=== PATIENT | female | born 1965 | race Caucasian/White ===

== ENCOUNTER 2018-06-25 10:55 | Inpatient (IN) | payer OTHER ==
--- NOTE | 2018-06-25 11:27 | PDOC ---
History of Present Illness - General History Source: Patient Exam Limitations: No Limitations - History of Present Illness Initial Comments: 06/25/18 12:39 The patient is a 53 year old female, with a significant PMH of Left breast cancer and HTN who presents to the emergency department with a headache for the past two weeks. Patient states the headache is intermittent, localized in the occipatal and parietal region which feels like a knife prompting her to go see Dr. Apodaca one week ago, who prescribed her new meds. Patient was prescribed zgebxrvjnb-rikfwvwljvyvt-tppkyfvx and furosemide 40MG. Patient sustained an injury one day after taking the new medications. Patient reports dizziness and headache after taking her medications. Patient was already on nifedipine, losartan, metoprolol. The patient denies chest pain and shortness of breath. Denies fever, chills, nausea, vomit, diarrhea and constipation. Denies dysuria, frequency, urgency and hematuria. Allergies: NKA Past surgical history: None reported. Social history: No reported alcohol, drug or cigarette use. PCP: Dr. Apodaca <Ning Whalen - Last Filed: 06/25/18 13:29> - General History Source: Patient Exam Limitations: No Limitations <Gail Allred - Last Filed: 06/26/18 10:33> - General Chief Complaint: Weakness Stated Complaint: weakness Time Seen by Provider: 06/25/18 11:14 Past History <Ning Whalen - Last Filed: 06/25/18 13:29> - Past Medical History Anemia: No Asthma: No Cancer: Yes (Left Breast DX 06/09) Cardiac Disorders: No CVA: No COPD: No CHF: No Dementia: No Diabetes: No GI Disorders: No Disorders: No HTN: Yes Hypercholesterolemia: No Liver Disease: No Seizures: No Thyroid Disease: No - Surgical History Abdominal Surgery: No Appendectomy: No Cardiac Surgery: No Cholecystectomy: No Lung Surgery: No Neurologic Surgery: No Orthopedic Surgery: No - Suicide/Smoking/Psychosocial Hx Smoking History: Never smoked Have you smoked in the past 12 months: No Information on smoking cessation initiated: No Hx Alcohol Use: No Drug/Substance Use Hx: No Substance Use Type: None Hx Substance Use Treatment: No <Gail Allred - Last Filed: 06/26/18 10:33> - Past Medical History Allergies/Adverse Reactions: Allergies Allergy/AdvReac Type Severity Reaction Status Date / Time No Known Drug Allergies Allergy Verified 01/26/16 06:49 Home Medications: Ambulatory Orders Losartan Potassium 100 mg PO HS 08/09/15 Nifedipine [Nifedipine ER] 90 mg PO DAILY 08/09/15 Butalb/Acetaminophen/Caffeine [Cyvzed-Hgpnkkuz-Ipzx 50-325-40] 1 each PO TID PRN 06/25/18 Furosemide [Lasix -] 40 mg PO DAILY 06/25/18 Metoprolol Succinate 100 mg PO DAILY 06/25/18 Naphazoline HCl/Pheniramine [Visine-A Eye Drops] 15 ml OP ASDIR 06/25/18 Review of Systems - Review of Systems Able to Perform ROS?: Yes Comments:: 06/25/18 12:57 ADULT ROS GENERAL/CONSTITUTIONAL: No fever or chills. No weakness. HEAD, EYES, EARS, NOSE AND THROAT: No change in vision. No ear pain or discharge. No sore throat. CARDIOVASCULAR: No chest pain or shortness of breath. RESPIRATORY: No cough, wheezing, or hemoptysis. GASTROINTESTINAL: No nausea, vomiting, diarrhea or constipation. GENITOURINARY: No dysuria, frequency, or change in urination. MUSCULOSKELETAL: No joint or muscle swelling or pain. No neck or back pain. SKIN: No rash NEUROLOGIC: (+) Dizzy. (+) Headache. No vertigo, loss of consciousness, or change in strength/sensation. ENDOCRINE: No increased thirst. No abnormal weight change. HEMATOLOGIC/LYMPHATIC: No anemia, easy bleeding, or history of blood clots. ALLERGIC/IMMUNOLOGIC: No hives or skin allergy. <Ning Whalen - Last Filed: 06/25/18 13:29> *Physical Exam - Vital Signs Last Vital Signs Temp Pulse Resp BP Pulse Ox 99.6 F 87 16 134/72 97 06/25/18 11:11 06/25/18 11:11 06/25/18 11:11 06/25/18 11:11 06/25/18 11:11 - Physical Exam Comments: 06/25/18 12:57 GENERAL: The patient is in no acute distress. HEAD: Normal with no signs of trauma. EYES: PERRLA, EOMI, sclera anicteric, conjunctiva clear. ENT: Ears normal, nares patent, oropharynx clear without exudates. Moist mucous membranes. NECK: Normal range of motion, supple without lymphadenopathy, JVD, or masses. LUNGS: Breath sounds equal, clear to auscultation bilaterally. No wheezes, and no crackles. HEART:Regular rate and rhythm, normal S1 and S2 without murmur, rub or gallop. ABDOMEN: Soft, nontender, normoactive bowel sounds. No guarding, no rebound. No masses palpable. EXTREMITIES: Normal range of motion, no edema. No clubbing or cyanosis. No tenderness. (+) Bruising to the left upper extremity. NEUROLOGICAL: Cranial nerves II through XII grossly intact. Normal speech. No focal neurological deficits. MUSCULOSKELETAL: Back non-tender to palpation, no CVA tenderness SKIN: Warm, Dry, normal turgor, no rashes or lesions noted. <Ning Whalen - Last Filed: 06/25/18 13:29> - Vital Signs Last Vital Signs Temp Pulse Resp BP Pulse Ox 99.6 F 87 16 134/72 97 06/25/18 11:11 06/25/18 11:11 06/25/18 11:11 06/25/18 11:11 06/25/18 11:11 <Gail Allred - Last Filed: 06/26/18 10:33> ED Treatment Course - LABORATORY CBC & Chemistry Diagram: 06/25/18 11:20 06/25/18 11:20 - ADDITIONAL ORDERS Additional order review: 06/25/18 11:20 RBC 4.35 MCV 91.8 MCHC 33.4 RDW 14.5 MPV 7.1 L Neutrophils % 70.2 Lymphocytes % 19.2 Monocytes % 7.8 Eosinophils % 2.3 Basophils % 0.5 - Medications Given in the ED: ED Medications Discontinued Medications Generic Name Dose Route Start Last Admin Trade Name Freq PRN Reason Stop Dose Admin Acetaminophen 1,000 mg 06/25/18 11:59 06/25/18 12:27 Ofirmev Injection - IVPB 06/25/18 12:00 1,000 mg ONCE ONE Administration Diphenhydramine HCl 25 mg 06/25/18 11:59 06/25/18 12:27 Benadryl Injection - IVPB 06/25/18 12:00 25 mg ONCE ONE Administration Metoclopramide HCl 10 mg 06/25/18 11:59 06/25/18 12:27 Reglan Injection - IVPUSH 06/25/18 12:00 10 mg ONCE ONE Administration <Ning Whalen - Last Filed: 06/25/18 13:29> - LABORATORY CBC & Chemistry Diagram: 06/26/18 05:30 06/26/18 05:30 <Gail Allred - Last Filed: 06/26/18 10:33> Medical Decision Making - Critical Care Time Total Critical Care Time (minutes): 60 Critical Care Statement: The care of this patient involved high complexity decision making to prevent further life threatening deterioration of the patient 's condition and/or to evaluate & treat vital organ system(s) failure or risk of failure. - Medical Decision Making 06/25/18 13:22 Ms Day is a 53-year-old female with a history of left-sided breast CA presented to emergency department due to weakness, headache. Patient's history of present illness began a possibly 2 weeks ago when she noted an intermittent headache, located parietal and occipital. She was seen by her primary care physician a week ago for her headache, noted to be hypertensive and was given an additional medication for her blood pressure (Lasix). She was also given Duricef for her headache. Patient states since taking those medication she has felt worse. In addition to the headache she is lightheaded particularly when standing. As a result of these medications, she fell while at work landing onto her left arm. She denies head trauma. She's had no fevers or chills. Nausea, no vomiting. No diarrhea. Decreased by mouth intake On examination: Patient is awake, alert answers all questions appropriately Heart is regular rate and rhythm Lungs are clear to auscultation bilaterally No abdominal tenderness. Patient has bruising notable on the left upper extremity. She has no focal weakness or numbness Will do: Labs, orthostatic vital signs, EKG Will do CT head Will give medications for headache Will reassess Will contact patient's PMD EKG: NSR, rate of 70 bpm, axis nml, intervals - pr:148ms, QRS: 140ms (prolonged) , QTc:468ms, no st elevations or depressions Laboratory Tests 06/25/18 06/25/18 11:20 11:20 WBC 8.7 Hgb 13.4 Hct 40.0 Plt Count 367 BUN 15 Creatinine 0.6 Creatine Kinase 73 Troponin I < 0.02 TSH 1.24 06/25/18 15:03 CT demonstrates brain mass with vasogenic edema and mass effect Call placed to Dr. Manriquez Will admit here Requests MRI with contrast Call placed to Dr Apodaca He accepts this patient for admission MRI ordered Decadron ordered Keppra Ordered Case reviewed with ICU resident Results reveiwed with patient, , daughter and son Clinical Impression: brain mass, initial presentation 06/26/18 10:32 <Gail Allred - Last Filed: 06/26/18 10:33> *DC/Admit/Observation/Transfer - Attestations Scribe Attestion: 06/25/18 12:57 Documentation prepared by Ning Whalen, acting as medical records secretary for Gail Allred MD. <Ning Whalen - Last Filed: 06/25/18 13:29> - Discharge Dispostion Decision to Admit order: Yes <aGil Allred - Last Filed: 06/26/18 10:33> Diagnosis at time of Disposition: Brain mass - Discharge Dispostion Condition at time of disposition: Fair
[2018-06-25] MEDS ORDERED: METOCLOPRAMIDE HCL INJECTION 10 MG/2 ML VIAL IVPUSH ONE (11:59)
[2018-06-25] MEDS ORDERED: ACETAMINOPHEN 1000 MG/100 ML VIAL (NON FORMULARY) IVPB ONE (11:59)
[2018-06-25] MEDS ORDERED: METOCLOPRAMIDE HCL INJECTION 10 MG/2 ML VIAL ONE (12:13)
[2018-06-25] MEDS ORDERED: ACETAMINOPHEN INJECTION 100 ML IVPB ONE (12:13)
[2018-06-25 12:30] LABS: BASO % 0.5 % (0-2.0); EOS % 2.3 % (0-4.5); HEMOGLOBIN 13.4 GM/dL (10.7-15.3); LYMPH % 19.2 % (8-40); MCH 30.7 pg (25.7-33.7); MCHC 33.4 g/dl (32.0-36.0); MEAN CELL VOLUME 91.8 fl (80-96); MEAN PLT VOLUME 7.1 fl (7.5-11.1); MONO % 7.8 % (3.8-10.2); NEUT % 70.2 % (42.8-82.8); PLATELET COUNT 367 K/MM3 (134-434); RBC 4.35 M/mm3 (3.60-5.2); RDW 14.5 % (11.6-15.6); WHITE BLOOD COUNT 8.7 K/mm3 (4.0-10.0)
[2018-06-25 12:43] LABS: INR 1.04 (0.83-1.09); PROTHROMBIN TIME (PATIENT) 12.3 SEC (9.7-13.0)
[2018-06-25 13:06] LABS: ALBUMIN 3.5 g/dl (3.4-5.0); ALK PHOS 92 U/L (45-117); ANION GAP 8 MMOL/L (8-16); BILIRUBIN,TOTAL 0.4 mg/dL (0.2-1); BLOOD UREA NITROGEN 15 mg/dL (7-18); CALCIUM 8.8 mg/dL (8.5-10.1); CHLORIDE 101 mmol/L (98-107); CO2 29 mmol/L (21-32); CREATININE 0.6 mg/dL (0.55-1.3); GLUCOSE,RANDOM 112 mg/dL (74-106); POTASSIUM 3.2 mmol/L (3.5-5.1); SGOT/AST 37 U/L (15-37); SGPT/ALT 55 U/L (13-61); SODIUM 138 mmol/L (136-145); TOT PROT 7.6 g/dl (6.4-8.2)
[2018-06-25] MEDS ORDERED: PANTOPRAZOLE SODIUM 40 MG VIAL IVPUSH ONE (15:16)
[2018-06-25] MEDS ORDERED: DEXAMETHASONE SOD PHOSPHATE 20 MG/5 ML VIAL IVPB ONE (15:16)
[2018-06-25] MEDS ORDERED: levETIRAcetam 500 MG/5 ML INJECTION VIAL IVPB ONE ×2 (15:16→15:31)
[2018-06-25] MEDS ORDERED: DEXAMETHASONE SOD PHOSPHATE 4 MG/1 ML VIAL ONE ×2 (15:31→22:31)
[2018-06-25] MEDS ORDERED: PANTOPRAZOLE SODIUM 40 MG/100 ML BAG IVPB ONE (15:31)
--- NOTE | 2018-06-25 15:37 | EKG ---
Test Reason : Blood Pressure : / mmHG Vent. Rate : 070 BPM Atrial Rate : 070 BPM P-R Int : 148 ms QRS Dur : 140 ms QT Int : 434 ms P-R-T Axes : 061 -02 009 degrees QTc Int : 468 ms SINUS RHYTHM WITH PREMATURE SUPRAVENTRICULAR COMPLEXES NON-SPECIFIC INTRA-VENTRICULAR CONDUCTION BLOCK T WAVE ABNORMALITY, CONSIDER ANTEROLATERAL ISCHEMIA ABNORMAL ECG NO PREVIOUS ECGS AVAILABLE Confirmed by SHERLEY SIU, DAWIT ([id number]) on 06/25/2018 3:37:17 PM Referred By: Confirmed By:DAWIT LEPE MD
--- NOTE | 2018-06-25 17:56 | CONSULT ---
Consultation: CONSULT REQUEST: We have been asked to medically evaluate this patient for ( brain mass with a mass effect-ICU admission). PCP: Dr. Apodaca Oncologist: Dr. Sutherland ([facility]) HISTORY OF PRESENT ILLNESS: Patient is a 53 year old female was brought in to the ED with the chief complaint of severe headache x 1 week. As per the patient, she was apparently well until 10 days ago, then she started having severe intermittent headache, 10/10 in intensity, non radiating, located mainly in the occipital area, associated with nausea but no vomiting. Also reports to have blurring of vision, tingling and numbness of the extremities, weakness while walking and weakness on the upper extremities making her difficult to hold even " a glass of water". Patient went to see her PCP a week ago, was given Fiorocet for headaches and Lasix 40mg PO for her BP as per the patient. 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 Denies chest pain, sob, cough, palpitation. Has a h/o constipation. Last bowel movement was yesterday. Bladder habit normal. Decreased PO intake since 10 days. Sleep disturbed. On arrival, her vitals were stable. Patient seen and examined at bed side PAST MEDICAL HISTORY: Hypertension on meds; Left breast Cancer s/p resection, chemo and radiation completed in 2016 in [facility]. 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 Was working till yesterday. TRAVEL: No h/o recent travel REVIEW OF SYSTEMS: CONSTITUTIONAL: Absent: fever, chills, diaphoresis, generalized weakness, malaise, loss of appetite, weight change HEENT: Absent: rhinorrhea, nasal congestion, throat pain, throat swelling, difficulty swallowing, mouth swelling, ear pain, eye pain, visual changes CARDIOVASCULAR: Absent: chest pain, syncope, palpitations, irregular heart rate, lightheadedness , peripheral edema RESPIRATORY: Absent: cough, shortness of breath, dyspnea with exertion, orthopnea, wheezing, stridor, hemoptysis GASTROINTESTINAL: Absent: abdominal pain, abdominal distension, nausea, vomiting, diarrhea, constipation, melena, hematochezia GENITOURINARY: Absent: dysuria, frequency, urgency, hesitancy, hematuria, flank pain, genital pain MUSCULOSKELETAL: Absent: myalgia, arthralgia, joint swelling, back pain, neck pain SKIN: Absent: rash, itching, pallor HEMATOLOGIC/IMMUNOLOGIC: Absent: easy bleeding, easy bruising, lymphadenopathy, frequent infections ENDOCRINE: Absent: unexplained weight gain, unexplained weight loss, heat intolerance, cold intolerance NEUROLOGIC: Present: headache, dizziness, weakness Absent: focal weakness or paresthesias, unsteady gait, seizure, mental status changes, bladder or bowel incontinence PSYCHIATRIC: Absent: anxiety, depression, suicidal or homicidal ideation, hallucinations. PHYSICAL EXAMINATION Vital Signs - 24 hr 06/25/18 06/25/18 06/25/18 11:11 15:08 15:42 Temperature 99.6 F 98.6 F Pulse Rate 87 Pulse Rate [ 67 Left Apical] Pulse Rate [ 65 Left side Sitting] Pulse Rate [ 67 Left side Standing] Pulse Rate [ 70 Left side Supine] Respiratory 16 16 Rate Blood Pressure 134/72 Blood Pressure 123/75 [Left Arm] Blood Pressure 119/69 [Left side Sitting] Blood Pressure 123/54 L [Left side Standing] Blood Pressure 129/66 [Left side Supine] O2 Sat by Pulse 97 98 Oximetry (%) 06/25/18 06/25/18 16:45 17:33 Temperature 97.8 F 98.1 F Pulse Rate Pulse Rate [ 72 72 Left Apical] Pulse Rate [ Left side Sitting] Pulse Rate [ Left side Standing] Pulse Rate [ Left side Supine] Respiratory 16 16 Rate Blood Pressure Blood Pressure 132/76 132/76 [Left Arm] Blood Pressure [Left side Sitting] Blood Pressure [Left side Standing] Blood Pressure [Left side Supine] O2 Sat by Pulse 97 98 Oximetry (%) GENERAL: Middle aged female, lying in bed, Awake, alert, and fully oriented, has mild headache. HEAD: Normal with no signs of trauma. EYES: EOM intact, no pallor or icterus. EARS, NOSE, THROAT: Ears normal. Moist mucous membranes. NECK: Supple. LUNGS: B/L Breath sounds equal, clear to auscultation bilaterally. No wheezes, and no crackles. No accessory muscle use. HEART: Regular rate and rhythm, normal S1 and S2 with soft systolic murmur. ABDOMEN: Soft, nontender, no organomegaly. MUSCULOSKELETAL: Normal range of motion at all joints. No bony deformities or tenderness. No CVA tenderness. UPPER EXTREMITIES: 2+ pulses, warm, well-perfused. No cyanosis. No clubbing. Cap refill <2 seconds. No peripheral edema. LOWER EXTREMITIES: 2+ pulses, warm, well-perfused. No calf tenderness. No peripheral edema. NEUROLOGICAL: No facial droop. Power 5/5 in all extremities. Sensory intact. Cranial nerves II-XII intact. Normal speech. Gait not observed. PSYCHIATRIC: Cooperative. Good eye contact. Appropriate mood and affect. SKIN: Warm, dry, normal turgor, no rashes or lesions noted. Laboratory Results - last 24 hr 06/25/18 06/25/18 06/25/18 11:20 11:20 11:20 WBC 8.7 RBC 4.35 Hgb 13.4 Hct 40.0 MCV 91.8 MCH 30.7 MCHC 33.4 RDW 14.5 Plt Count 367 MPV 7.1 L Absolute Neuts (auto) 6.1 Neutrophils % 70.2 Lymphocytes % 19.2 Monocytes % 7.8 Eosinophils % 2.3 Basophils % 0.5 Nucleated RBC % 0 PT with INR 12.30 INR 1.04 Sodium 138 Potassium 3.2 L Chloride 101 Carbon Dioxide 29 Anion Gap 8 BUN 15 Creatinine 0.6 Creat Clearance w eGFR > 60 Random Glucose 112 H Calcium 8.8 Magnesium 2.0 Total Bilirubin 0.4 AST 37 ALT 55 Alkaline Phosphatase 92 Creatine Kinase 73 Troponin I < 0.02 Total Protein 7.6 Albumin 3[address] head done on 06/25/2018 shows: Large slightly hyperdense mass lesion in th eright posterior frontal lobe, medially measuring 4.4 cm max dimension with significant surrounding vasogenic edema involving the right temporal, frontal and parietal lobe and with significant mass effect shifting the midline structures towards the the left approx 12mm resulting in moderate dilatation of the right temporal horn. ASSESSMENT/PLAN: Patient is a 53 year old female with significant past medical history of Hypertension and left breast cancer s/p resection, chemo and radiation was brought in to the ED with the chief complaint of severe headache x 1 week was found to have mass in the brain with a shift Neurology Headache likely secondary to brain mass with a shift effect Currently patient's vitals are stable at this time, no focal neurological deficits. CT head as mentioned above. Spoke with Dr. Isaac who says we need stat MRI brain results and the treatment will depend upon the results. IV Decadron 4 mg Q6H MIGDALIA IV Protonix 40mg Daily IV Keppra 500 mg IV BID for seizure prophylaxis NPO except PO meds NO IV FLUIDS OR IV MANNITOL. Before giving any additional medication, please call Dr. Isaac. Cardiology Hypertension-controlled Continue her home meds: Losartan 100mg PO HS; Metoprolol succinate 100mg, Nifedipine 90mg. Lasix 40mg currently on hold. FEN NO IV FLUIDS Electrolytes to be repeated in AM NPO except for PO meds Prophylaxis For DVT: SCD's For GI: On IV protonix Code Status: Full code Dispo: Now in the ED. Awaiting bed in ICU. Illness, Investigation and Plan of care explained to the patient and her . They verbalized understanding. Case discussed with Dr. Isaac. Dispo: We will continue to follow the patient. Thank you for this consultative opportunity.
[2018-06-25] MEDS ORDERED: DEXAMETHASONE SOD PHOSPHATE 20 MG/5 ML VIAL IVPB SCH (19:00)
[2018-06-25] MEDS: PANTOPRAZOLE SODIUM 40 MG VIAL IVPUSH SCH (19:09)
[2018-06-25] MEDS ORDERED: LOSARTAN POTASSIUM 100 MG TABLET PO SCH (22:00)
[2018-06-25] MEDS ORDERED: LOSARTAN POTASSIUM 50 MG TABLET (FP) PO SCH (22:33)
[2018-06-25] MEDS: DEXAMETHASONE SOD PHOSPHATE 20 MG/5 ML VIAL IVPUSH SCH (22:36)
[2018-06-25] MEDS ORDERED: METOPROLOL TARTRATE 50 MG TABLET (FP) PO SCH (22:45)
--- NOTE | 2018-06-25 23:41 | PN ---
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 This could represent lymphoma versus primary or metastatic lesions. The mass is causing mass effect on the occipital and temporal horns of the right lateral ventricle with edema extending into the right parietal, temporal and occipital lobes. It is also causing 0.7 cm of leftward midline shift There are no other intracranial masses The ventricles and basilar cisterns are otherwise, unremarkable There is no evidence of intra or extra axial hemorrhage There is some mild incomplete mucosal thickening within the left maxillary sinus which could represent some chronic sinusitis. The remainder of the paranasal sinuses and mastoid air cells are clear IMPRESSION: 1.) Large mass within the inferior thalamic region as described above. This could represent lymphoma, or primary and less likely metastatic disease 2.) Leftward midline shift. Mass effect and edema as described above. Discussed case and results with Neurosurgeon, Dr. Isaac, who believes it might be a possible atrial meningioma. He will speak to the family tomorrow after further reviewing the images with possible surgery on Saturday (06/27/18). For now will make patient NPO after midnight with no IV fluids May take sips of water with medications Spoke to Family at bedside, daughter Essie Day, Son Vinnie Day, and Vinnie and explained the findings. Also explained to them that Dr. Isaac will speak to them tomorrow in full detail and prognosis. Also discussed Code Status and appointing health care proxy Family discussion initiated and patient appointed her daughter, Essie Day , as the health care proxy. Patient is full code Paper work in chart
[2018-06-25] MEDS ORDERED: PT OWN MED DRAWER 7, Y5N ONE (23:54)
[2018-06-26] MEDS: LOSARTAN POTASSIUM 50 MG TABLET (FP) PO SCH ×2 (00:09→21:12)
[2018-06-26] MEDS: DEXAMETHASONE SOD PHOSPHATE 20 MG/5 ML VIAL IVPUSH SCH (02:05)
[2018-06-26 05:51] LABS: HEMATOCRIT 41.7 % (32.4-45.2); HEMOGLOBIN 13.7 GM/dL (10.7-15.3); MCH 30.3 pg (25.7-33.7); MCHC 32.8 g/dl (32.0-36.0); MEAN CELL VOLUME 92.6 fl (80-96); MEAN PLT VOLUME 7.4 fl (7.5-11.1); PLATELET COUNT 364 K/MM3 (134-434); RBC 4.51 M/mm3 (3.60-5.2); RDW 14.8 % (11.6-15.6); WHITE BLOOD COUNT 10.1 K/mm3 (4.0-10.0)
[2018-06-26 06:05] LABS: INR 1.08 (0.83-1.09); PROTHROMBIN TIME (PATIENT) 12.7 SEC (9.7-13.0)
[2018-06-26 06:24] LABS: ALBUMIN 3.5 g/dl (3.4-5.0); ALK PHOS 79 U/L (45-117); ANION GAP 9 MMOL/L (8-16); BILIRUBIN,TOTAL 0.5 mg/dL (0.2-1); BLOOD UREA NITROGEN 15 mg/dL (7-18); CHLORIDE 102 mmol/L (98-107); CO2 27 mmol/L (21-32); CREATININE 0.7 mg/dL (0.55-1.3); GLUCOSE,RANDOM 157 mg/dL (74-106); MAGNESIUM 2.1 mg/dL (1.8-2.4); PHOSPHOROUS 3.5 mg/dL (2.5-4.9); POTASSIUM 3.7 mmol/L (3.5-5.1); SGOT/AST 33 U/L (15-37); SGPT/ALT 53 U/L (13-61); SODIUM 138 mmol/L (136-145); TOT PROT 7.6 g/dl (6.4-8.2)
[2018-06-26] MEDS: PANTOPRAZOLE SODIUM 40 MG VIAL IVPUSH SCH (11:10)
[2018-06-26] MEDS: DEXAMETHASONE SOD PHOSPHATE 4 MG/1 ML VIAL IVPUSH SCH ×3 (11:10→21:13)
[2018-06-26] MEDS: NIFEdipine E.R. 90 MG TABLET (FP) PO SCH (11:11)
[2018-06-26] MEDS ORDERED: levETIRAcetam 500 MG/5 ML INJECTION VIAL IVPB ONE ×2 (11:55→16:57)
--- NOTE | 2018-06-26 12:10 | PN ---
Teaching Attending Note Name of Resident: Courtney Collins ATTENDING PHYSICIAN STATEMENT I saw and evaluated the patient. I reviewed the resident's note and discussed the case with the resident. I agree with the resident's findings and plan as documented. SUBJECTIVE: Pt seen and examined in the ICU. Denies headache, nausea or vomiting. OBJECTIVE: Vital Signs Period Temp Pulse Resp BP Sys/Gilman Pulse Ox Last 24 Hr 97.8 F-98.6 F 65-80 16-18 118-159/54-94 95-98 Intake & Output 06/23/18 06/24/18 06/25/18 06/26/18 23:59 23:59 23:59 23:59 Intake Total 300 200 Balance 300 200 Weight 87.4 kg Gen: NAD at rest Heart: RRR Lung: decreased breath sounds at the bases Abd: soft, nontender Ext: no edema CBC, BMP 06/26/18 05:30 06/26/18 05:30 Active Medications Dexamethasone Sodium Phosphate (Decadron Injection -) 4 mg IVPUSH Q6H-IV [facility] Last Admin: 06/26/18 11:10 Dose: 4 mg Levetiracetam (Keppra Injection -) 500 mg IVPB BID MIGDALIA Losartan Potassium (Cozaar -) 100 mg PO HS [facility] Last Admin: 06/26/18 00:09 Dose: 100 mg Metoprolol Succinate (Toprol Xl -) 100 mg PO HS [facility] Last Admin: 06/26/18 00:09 Dose: 100 mg Nifedipine (Procardia Xl -) 90 mg PO DAILY [facility] Last Admin: 06/26/18 11:11 Dose: 90 mg Pantoprazole Sodium (Protonix Iv) 40 mg IVPUSH DAILY [facility] Last Admin: 06/26/18 11:10 Dose: 40 mg ASSESSMENT AND PLAN: Brain Mass Cerebral Edema h/o Breast Ca s/p resection/chemo/RT HTN - continue decadron - continue empiric antiepileptics - f/u MRI read - neurosurgery evaluation - for possible OR - DVT prophylaxis - continue ICU monitoring
--- NOTE | 2018-06-26 12:28 | CON.CARD ---
Consult Consult Specialty:: Cardiology Referred by:: ICU Reason for Consultation:: Pre-operative cardiovascular evaluation - History of Present Illness Chief Complaint: Headache History of Present Illness: Patient is a 53 year old female was brought in to the ED with the chief complaint of severe headache, non radiating, located mainly in the occipital area, associated with nausea but no vomiting. Also reports to have blurring of vision, tingling and numbness of the extremities, weakness while walking and weakness on the upper extremities making it difficult to hold even " a glass of water". Brain imaging confirms right brain mass. Patient denies chest pain, dyspnea, near or true syncope, palpitations, orthopnea, PND or LE edema. - History Source History Provided By: Patient Limitations to Obtaining History: No Limitations - Past Medical History Cardio/Vascular: Yes: HTN ...LMP: 12/26/11 - Past Surgical History Past Surgical History: Yes: None - Alcohol/Substance Use Hx Alcohol Use: No - Smoking History Smoking history: Never smoked Have you smoked in the past 12 months: No Home Medications - Allergies Allergies/Adverse Reactions: Allergies Allergy/AdvReac Type Severity Reaction Status Date / Time No Known Drug Allergies Allergy Verified 01/26/16 06:49 - Home Medications Home Medications: Ambulatory Orders Losartan Potassium 100 mg PO HS 08/09/15 Nifedipine [Nifedipine ER] 90 mg PO DAILY 08/09/15 Butalb/Acetaminophen/Caffeine [Teyqva-Tvvlguwd-Oobl 50-325-40] 1 each PO TID PRN 06/25/18 Furosemide [Lasix -] 40 mg PO DAILY 06/25/18 Metoprolol Succinate 100 mg PO DAILY 06/25/18 Naphazoline HCl/Pheniramine [Visine-A Eye Drops] 15 ml OP ASDIR 06/25/18 Review of Systems - Review of Systems Neurological: reports: Headache Vital Signs: Vital Signs Temperature 98.4 F 06/26/18 10:00 Pulse Rate 79 06/26/18 10:00 Respiratory Rate 18 06/26/18 10:00 Blood Pressure 139/72 06/26/18 10:00 O2 Sat by Pulse Oximetry (%) 95 06/26/18 09:00 Constitutional: Yes: No Distress, Calm Neck: Yes: Supple Respiratory: Yes: Regular, CTA Bilaterally Gastrointestinal: Yes: Normal Bowel Sounds, Soft Cardiovascular: Yes: Regular Rate and Rhythm JVD: No Carotid Bruit: No Heart Sounds: Yes: S1, S2 Edema: No - Other Data Labs, Other Data: CBC, BMP 06/26/18 05:30 06/26/18 05:30 INR, PTT INR 1.08 (0.83-1.09) 06/26/18 05:30 Troponin, BNP 06/25/18 11:20 Troponin I < 0.02 Troponin, BNP 06/25/18 11:20 Troponin I < 0.02 NSR @ 70 PAC, IRBBB Imaging - Results Chest X-ray: Report Reviewed (NAD) Cat Scan: Report Reviewed (CT head done on 06/25/2018 shows: Large slightly hyperdense mass lesion in th eright posterior frontal lobe, medially measuring 4.4 cm max dimension with significant surrounding vasogenic edema involving the right temporal, frontal and parietal lobe and with significant mass effect shifting the midline structures towards the the left approx 12mm resulting in moderate dilatation of the right temporal horn.) MRI: Report Reviewed (: approx 5.5 x2/3mm mildly enhancing R pontine lesion , significant peritumoral vasogenic edema, lymphoma vs GBM) Problem List - Problems (1) Hypertension Code(s): I10 - ESSENTIAL (PRIMARY) HYPERTENSION Qualifiers: Hypertension type: essential hypertension Qualified Code(s): I10 - Essential (primary) hypertension (2) Pre-operative cardiovascular examination Code(s): Z01.810 - ENCOUNTER FOR PREPROCEDURAL CARDIOVASCULAR EXAMINATION (3) Brain mass Code(s): G93.9 - DISORDER OF BRAIN, UNSPECIFIED (4) Breast cancer, left breast Code(s): C50.912 - MALIGNANT NEOPLASM OF UNSPECIFIED SITE OF LEFT FEMALE BREAST Qualifiers: Breast location: upper outer quadrant of breast Assessment/Plan 1. Pre-operative CV evaluation 2. Brain Mass with Cerebral Edema 3. h/o Breast Ca s/p resection/chemo/RT 4. HTN P:1. IV decadron with GI protection, empiric antiepileptics 2. neurosurgery evaluation appreciated, no CV contraindications against proceeding with craniotomy/tumor resection given lack of symptoms of acute coronary syndrome, decompensated CHF or malignant arrhythmia 3. Continue Losartan 100mg PO HS; Metoprolol succinate 100mg qd, Nifedipine XL 90mg qd. 4. DVT and GI prophylaxis 5. Thank you for consultative opportunity
--- NOTE | 2018-06-26 14:17 | PN ---
Physical Exam: SUBJECTIVE: Patient seen and examined at bedside. Patient reports minimal headache, attributing it to "being hungry". She denies blurry vision, weakness, numbness, chest pain, SOB, palpitations, abdominal pain, urinary symptoms. OBJECTIVE: Vital Signs Period Temp Pulse Resp BP Sys/Gilman Pulse Ox Last 24 Hr 97.8 F-98.6 F 65-80 13-18 118-159/54-94 95-98 GENERAL: The patient is awake, alert, and fully oriented, in no acute distress. HEAD: Normal with no signs of trauma. EYES: PERRLA, extraocular movements intact, sclera anicteric, conjunctiva clear. ENT: Ears normal, nares patent, oropharynx clear without exudates, moist mucous membranes. NECK: Trachea midline, full range of motion, supple. LUNGS: Breath sounds equal, clear to auscultation bilaterally. HEART: Regular rate and rhythm, S1, S2 without murmur, rub or gallop. ABDOMEN: Soft, nontender, nondistended, normoactive bowel sounds. EXTREMITIES: 2+ pulses, warm, well-perfused, no edema. NEUROLOGICAL: AAOx3, Cranial nerves II through XII grossly intact. Sensation intact, motor 5/5. Normal speech, gait not observed. PSYCH: Normal mood, normal affect. SKIN: Warm, dry, normal turgor, no rashes or lesions noted Laboratory Results - last 24 hr 06/26/18 06/26/18 06/26/18 05:30 05:30 05:30 WBC 10.1 H RBC 4.51 Hgb 13.7 Hct 41.7 MCV 92.6 MCH 30.3 MCHC 32.8 RDW 14.8 Plt Count 364 MPV 7.4 L PT with INR 12.70 INR 1.08 Sodium 138 Potassium 3.7 Chloride 102 Carbon Dioxide 27 Anion Gap 9 BUN 15 Creatinine 0.7 Creat Clearance w eGFR > 60 Random Glucose 157 H Hemoglobin A1c % Calcium 9.0 Phosphorus 3.5 Magnesium 2.1 Total Bilirubin 0.5 AST 33 ALT 53 Alkaline Phosphatase 79 Total Protein 7.6 Albumin 3.5 06/26/18 05:30 WBC RBC Hgb Hct MCV MCH MCHC RDW Plt Count MPV PT with INR INR Sodium Potassium Chloride Carbon Dioxide Anion Gap BUN Creatinine Creat Clearance w eGFR Random Glucose Hemoglobin A1c % 6.7 H Calcium Phosphorus Magnesium Total Bilirubin AST ALT Alkaline Phosphatase Total Protein Albumin Active Medications Generic Name Dose Route Start Last Admin Trade Name Isa PRN Reason Stop Dose Admin Dexamethasone Sodium Phosphate 4 mg 06/26/18 09:00 06/26/18 11:10 Decadron Injection - IVPUSH 4 mg Q6H-IV MIGDALIA Administration Levetiracetam 500 mg 06/26/18 22:00 Keppra Injection - IVPB BID MIGDALIA Losartan Potassium 100 mg 06/25/18 22:45 06/26/18 00:09 Cozaar - PO 100 mg HS MIGDALIA Administration Metoprolol Succinate 100 mg 06/25/18 23:15 06/26/18 00:09 Toprol Xl - PO 100 mg HS MIGDALIA Administration Nifedipine 90 mg 06/26/18 10:00 06/26/18 11:11 Procardia Xl - PO 90 mg DAILY MIGDALIA Administration Pantoprazole Sodium 40 mg 06/25/18 19:00 06/26/18 11:10 Protonix Iv IVPUSH 40 mg DAILY MIGDALIA Administration ASSESSMENT/PLAN: Patient is a 53 year old female with past medical history of Hypertension and right-sided breast cancer s/p resection, chemotherapy and radiation therapy ( 2015), presented with 1 week history of severe, 10/10, intermittent headache. Brain MRI showed a large mass with leftward midline shift. #Neurology 1) Headache, likely 2/2 brain mass with leftward midline shift -Head CT: -Brain MRI: Large mass within the inferior thalamic region. Leftward midline shift. Mass effect and edema. -Neuro checks q4h. -Neurosurgery (Dr. Vázquez) consulted. -IV Decadron 4 mg Q6H MIGDALIA -IV Protonix 40mg Daily -IV Keppra 500 mg IV BID for seizure prophylaxis -NPO except PO meds -NO IV FLUIDS OR IV MANNITOL. Before giving any additional medication, please call Dr. Vázquez. -For surgery tomorrow as per Dr. Vázquez. -NPO after midnight. #Cardiology 1)Hypertension -Continue home medications: Losartan 100mg, Procardia XL 70mg, Metoprolol 100mg -Lasix 40mg held. -Cardiology (Dr. Keenan) consulted for cardiac clearance. #Nephrology 1) Hypokalemia -K-dur given -will continue to monitor #FEN -Not on any standing fluids -No IV fluids or mannitol -Routine bmp monitoring, replete PRN -Sodium controlled diet -NPO after midnight #Prophylaxis 1)DVT - SCDs, both legs 2)GI- Protonix 40mg IV daily #Disposition -full code -ICU for closer monitoring Visit type - Emergency Visit Emergency Visit: Yes ED Registration Date: 06/25/18 Care time: The patient presented to the Emergency Department on the above date and was hospitalized for further evaluation of their emergent condition. - New Patient This patient is new to me today: Yes Date on this admission: 06/26/18 - Critical Care Critical Care patient: Yes Total Critical Care Time (in minutes): 40 Critical Care Statement: The care of this patient involved high complexity decision making to prevent further life threatening deterioration of the patient 's condition and/or to evaluate & treat vital organ system(s) failure or risk of failure.
--- NOTE | 2018-06-26 14:30 | HP ---
DATE OF ADMISSION: 06/25/2018 This is a 53-year-old female who came to the emergency room yesterday with complaints of headache. Then a CAT scan was done which showed mass in the right frontal lobe, so got admitted. PAST MEDICAL HISTORY: She is diagnosed to have breast cancer and status post chemotherapy, being followed by Dr. Sutherland at [facility]. She denies any loss of consciousness. No other complaints other than severe headache for the last 1 week. She is also hypertensive on losartan. PHYSICAL EXAMINATION: Vital Signs: BP 160/85, pulse 72, respirations 20, temperature 98. HEENT: Unremarkable. Neck: Supple. No JVD. Lungs: Clear. Heart: S1, S2 normal. No S3, S4. Abdomen: Soft. Left Breast: No masses. Neurological: Grossly normal. CT of the head showed a 4-cm mass, right frontal lobe area. MRI done, results pending. LABORATORY REPORTS: WBC 10, hemoglobin 13, hematocrit 41. Chemistry: Electrolytes are normal. Hemoglobin A1c 6.7. DIAGNOSES: 1. Brain mass, possible metastatic. 2. Cancer of the breast. 3. Hypertension. PLAN: Neurosurgery consult and oncology consult. Will follow. Case discussed with the ICU resident. Kelli [id number]
[2018-06-26] MEDS ORDERED: POTASSIUM CHLORIDE TABS 20 MEQ TABLET.ER (FP) PO ONE (14:45)
--- NOTE | 2018-06-26 14:45 | SPA.PREOP ---
- PRE-OP NOTE Dx: Right sided brain mass with cerebral edema Planned Procedure: Craniotomy/tumor resection on 06/27 (currently scheduled for 1400) Surgeon: Dr Jose A Vázquez Consent: Obtained after surgeon explained all risks, benefits and alternatives. Opportunity for questions. Patient had none. Understood and signed without reservation. Last Vital Signs Temp Pulse Resp BP Pulse Ox 98.4 F 72 13 142/70 95 06/26/18 10:00 06/26/18 12:00 06/26/18 12:00 06/26/18 12:00 06/26/18 09:00 Lab Results WBC 10.1 K/mm3 (4.0-10.0) H 06/26/18 05:30 RBC 4.51 M/mm3 (3.60-5.2) 06/26/18 05:30 Hgb 13.7 GM/dL (10.7-15.3) 06/26/18 05:30 Hct 41.7 % (32.4-45.2) 06/26/18 05:30 MCV 92.6 fl (80-96) 06/26/18 05:30 MCHC 32.8 g/dl (32.0-36.0) 06/26/18 05:30 RDW 14.8 % (11.6-15.6) 06/26/18 05:30 Plt Count 364 K/MM3 (134-434) 06/26/18 05:30 Sodium 138 mmol/L (136-145) 06/26/18 05:30 Potassium 3.7 mmol/L (3.5-5.1) 06/26/18 05:30 Chloride 102 mmol/L (98-107) 06/26/18 05:30 Carbon Dioxide 27 mmol/L (21-32) 06/26/18 05:30 Anion Gap 9 MMOL/L (8-16) 06/26/18 05:30 BUN 15 mg/dL (7-18) 06/26/18 05:30 Creatinine 0.7 mg/dL (0.55-1.3) 06/26/18 05:30 Random Glucose 157 mg/dL (74-106) H 06/26/18 05:30 Calcium 9.0 mg/dL (8.5-10.1) 06/26/18 05:30 INR 1.08 (0.83-1.09) 06/26/18 05:30 - IMAGING Chest X-ray: Report Reviewed, Image Reviewed (06/25-wnl) MRI: Report Reviewed (06/25: approx 5.5 x2/3mm mildly enhancing R pontine lesion , significant peritumoral vasogenic edema), Image Reviewed EKG: Report Reviewed ( premature SVTS, nonspecific intraventicular conduction block, t wave abnormality) - ASSESSMENT/PLAN 53 y/o F admitted with PMHx Hypertension and h/o right-sided breast cancer s/p resection, chemotherapy and radiation therapy (2015), now admitted after presenting with a 1 week history of severe, 06/04, intermittent headache, MRI revealing large enhancing R pontine lesion with significant peritumoral vasogenic edema, planned for OR tomorrow (06/27/18 at 1400) with Dr Arora for Craniotomy/Biopsy/tumor resection. -NPO after midnight -Labs (cbc, chem, coags, t&s) ordered for 06/27 at 0600 -Consent per attending -Continue Keppra IV 500mg bid -Continue decadron IV per attending
[2018-06-26 17:33] LABS: URINE APPEARANCE SLCLOUDY; URINE BILIRUBIN NEGATIVE (<2.0 mg/dL); URINE COLOR YELLOW; URINE GLUCOSE (UA) NEGATIVE (NEGATIVE); URINE KETONE NEGATIVE (NEGATIVE); URINE LEUK ESTERASE TRACE (NEGATIVE); URINE NITRITE NEGATIVE (NEGATIVE); URINE PROTEIN NEGATIVE (NEGATIVE); URINE UROBILINOGEN NEGATIVE mg/dL (0.2-1.0)
[2018-06-26 17:56] LABS: EPI CELLS MODERATE /HPF (FEW); URINE BACTERIA RARE /hpf (NONE SEEN); URINE MUCUS FEW
[2018-06-26] MEDS: levETIRAcetam 500 MG/5 ML INJECTION VIAL IVPB SCH (21:13)
[2018-06-27] MEDS: DEXAMETHASONE SOD PHOSPHATE 4 MG/1 ML VIAL IVPUSH SCH ×4 (02:26→21:42)
[2018-06-27 05:54] LABS: BASO % 0.2 % (0-2.0); HEMATOCRIT 42.6 % (32.4-45.2); HEMOGLOBIN 13.7 GM/dL (10.7-15.3); LYMPH % 9.8 % (8-40); MCH 29.8 pg (25.7-33.7); MEAN PLT VOLUME 7.6 fl (7.5-11.1); MONO % 2.5 % (3.8-10.2); NEUT % 87.5 % (42.8-82.8); PLATELET COUNT 360 K/MM3 (134-434); RBC 4.58 M/mm3 (3.60-5.2); RDW 14.7 % (11.6-15.6); WHITE BLOOD COUNT 12.8 K/mm3 (4.0-10.0)
[2018-06-27 06:21] LABS: INR 1.02 (0.83-1.09)
[2018-06-27 06:24] LABS: ACTIVATED PTT 27.1 SECONDS (25.2-36.5)
[2018-06-27 06:33] LABS: ANION GAP 7 MMOL/L (8-16); BLOOD UREA NITROGEN 18 mg/dL (7-18); CALCIUM 8.5 mg/dL (8.5-10.1); CHLORIDE 104 mmol/L (98-107); CO2 27 mmol/L (21-32); CREATININE 0.8 mg/dL (0.55-1.3); GLUCOSE,RANDOM 158 mg/dL (74-106); MAGNESIUM 2.2 mg/dL (1.8-2.4); PHOSPHOROUS 2.6 mg/dL (2.5-4.9); POTASSIUM 4.6 mmol/L (3.5-5.1); SODIUM 139 mmol/L (136-145)
--- NOTE | 2018-06-27 09:06 | PN ---
Progress Note, Physician Chief Complaint: feels better History of Present Illness: Scheduled for craniotomy and resection of the tumor - Current Medication List Current Medications: Active Medications Dexamethasone Sodium Phosphate (Decadron Injection -) 4 mg IVPUSH Q6H-IV [facility] Last Admin: 06/27/18 08:27 Dose: 4 mg Levetiracetam (Keppra Injection -) 500 mg IVPB BID [facility] Last Admin: 06/26/18 21:13 Dose: 500 mg Losartan Potassium (Cozaar -) 100 mg PO HS [facility] Last Admin: 06/26/18 21:12 Dose: 100 mg Metoprolol Succinate (Toprol Xl -) 100 mg PO HS [facility] Last Admin: 06/26/18 21:13 Dose: 100 mg Nifedipine (Procardia Xl -) 90 mg PO DAILY [facility] Last Admin: 06/26/18 11:11 Dose: 90 mg Pantoprazole Sodium (Protonix Iv) 40 mg IVPUSH DAILY [facility] Last Admin: 06/26/18 11:10 Dose: 40 mg - Objective Vital Signs: Vital Signs Temperature 98.4 F 06/27/18 06:00 Pulse Rate 74 06/27/18 08:00 Respiratory Rate 18 06/27/18 08:00 Blood Pressure 140/81 06/27/18 08:00 O2 Sat by Pulse Oximetry (%) 95 06/27/18 08:34 Constitutional: Yes: No Distress Eyes: Yes: WNL HENT: Yes: WNL Neck: Yes: WNL Cardiovascular: Yes: WNL Respiratory: Yes: Regular Gastrointestinal: Yes: WNL ...Rectal Exam: Yes: Deferred Edema: No Integumentary: Yes: WNL Neurological: Yes: Alert ...Motor Strength: WNL Labs: CBC, BMP 06/27/18 05:30 06/27/18 05:30 INR, PTT INR 1.02 (0.83-1.09) 06/27/18 05:30 Assessment/Plan No medical contra indication surgery
[2018-06-27] MEDS: levETIRAcetam 500 MG/5 ML INJECTION VIAL IVPB SCH ×2 (09:32→21:42)
[2018-06-27] MEDS: PANTOPRAZOLE SODIUM 40 MG VIAL IVPUSH SCH (09:35)
[2018-06-27] MEDS: NIFEdipine E.R. 90 MG TABLET (FP) PO SCH (10:05)
--- NOTE | 2018-06-27 10:18 | PN ---
Progress Note, Physician History of Present Illness: Headache improving, await craniotomy, tumor resection. No events on telemetry. - Current Medication List Current Medications: Active Medications Dexamethasone Sodium Phosphate (Decadron Injection -) 4 mg IVPUSH Q6H-IV [facility] Last Admin: 06/27/18 08:27 Dose: 4 mg Levetiracetam (Keppra Injection -) 500 mg IVPB BID [facility] Last Admin: 06/27/18 09:32 Dose: 500 mg Losartan Potassium (Cozaar -) 100 mg PO HS [facility] Last Admin: 06/26/18 21:12 Dose: 100 mg Metoprolol Succinate (Toprol Xl -) 100 mg PO HS [facility] Last Admin: 06/26/18 21:13 Dose: 100 mg Nifedipine (Procardia Xl -) 90 mg PO DAILY [facility] Last Admin: 06/27/18 10:05 Dose: Not Given Pantoprazole Sodium (Protonix Iv) 40 mg IVPUSH DAILY [facility] Last Admin: 06/27/18 09:35 Dose: 40 mg - Objective Vital Signs: Vital Signs Temperature 98.5 F 06/27/18 09:55 Pulse Rate 67 06/27/18 09:55 Respiratory Rate 18 06/27/18 09:55 Blood Pressure 140/80 06/27/18 09:55 O2 Sat by Pulse Oximetry (%) 95 06/27/18 08:34 Constitutional: Yes: No Distress, Calm Neck: Yes: Supple Cardiovascular: Yes: Regular Rate and Rhythm Respiratory: Yes: Regular, CTA Bilaterally Gastrointestinal: Yes: Normal Bowel Sounds, Soft Edema: No Labs: CBC, BMP 06/27/18 05:30 06/27/18 05:30 INR, PTT INR 1.02 (0.83-1.09) 06/27/18 05:30 Problem List - Problems (1) Hypertension Code(s): I10 - ESSENTIAL (PRIMARY) HYPERTENSION Qualifiers: Hypertension type: essential hypertension Qualified Code(s): I10 - Essential (primary) hypertension (2) Pre-operative cardiovascular examination Code(s): Z01.810 - ENCOUNTER FOR PREPROCEDURAL CARDIOVASCULAR EXAMINATION (3) Brain mass Code(s): G93.9 - DISORDER OF BRAIN, UNSPECIFIED (4) Breast cancer, left breast Code(s): C50.912 - MALIGNANT NEOPLASM OF UNSPECIFIED SITE OF LEFT FEMALE BREAST Qualifiers: Breast location: upper outer quadrant of breast Assessment/Plan 1. Pre-operative CV evaluation 2. Brain Mass with Cerebral Edema 3. h/o Breast Ca s/p resection/chemo/RT 4. HTN P:1. IV decadron with GI protection, empiric antiepileptics 2. Neurosurgery evaluation appreciated, no CV contraindications against proceeding with craniotomy/tumor resection given lack of symptoms of acute coronary syndrome, decompensated CHF or malignant arrhythmia 3. Continue Losartan 100mg PO HS; Metoprolol succinate 100mg qd, Nifedipine XL 90mg qd. 4. DVT and GI prophylaxis
--- NOTE | 2018-06-27 12:07 | PN ---
Teaching Attending Note Name of Resident: Courtney Collins ATTENDING PHYSICIAN STATEMENT I saw and evaluated the patient. I reviewed the resident's note and discussed the case with the resident. I agree with the resident's findings and plan as documented. SUBJECTIVE: Patient seen and examined in the ICU. Denies headache, nausea or vomiting. For OR today. OBJECTIVE: Intake & Output 06/24/18 06/25/18 06/26/18 06/27/18 23:59 23:59 23:59 23:59 Intake Total 300 600 Output Total 800 Balance 300 600 -800 Weight 192 lb 10.944 oz Last Vital Signs Temp Pulse Resp BP Pulse Ox 98.5 F 62 18 155/80 95 06/27/18 09:55 06/27/18 10:27 06/27/18 10:27 06/27/18 10:27 06/27/18 08:34 Active Medications Dexamethasone Sodium Phosphate (Decadron Injection -) 4 mg IVPUSH Q6H-IV [facility] Last Admin: 06/27/18 08:27 Dose: 4 mg Levetiracetam (Keppra Injection -) 500 mg IVPB BID [facility] Last Admin: 06/27/18 09:32 Dose: 500 mg Losartan Potassium (Cozaar -) 100 mg PO HS [facility] Last Admin: 06/26/18 21:12 Dose: 100 mg Metoprolol Succinate (Toprol Xl -) 100 mg PO HS [facility] Last Admin: 06/26/18 21:13 Dose: 100 mg Nifedipine (Procardia Xl -) 90 mg PO DAILY [facility] Last Admin: 06/27/18 10:05 Dose: Not Given Pantoprazole Sodium (Protonix Iv) 40 mg IVPUSH DAILY [facility] Last Admin: 06/27/18 09:35 Dose: 40 mg Gen: NAD at rest Heart: RRR Lung: decreased breath sounds at the bases Abd: soft, nontender Ext: no edema Laboratory Results - last 24 hr 06/26/18 06/27/18 06/27/18 13:00 05:30 05:30 WBC 12.8 H RBC 4.58 Hgb 13.7 Hct 42.6 MCV 93.0 MCH 29.8 MCHC 32.0 RDW 14.7 Plt Count 360 MPV 7.6 Absolute Neuts (auto) 11.2 H Neutrophils % 87.5 H D Lymphocytes % 9.8 D Monocytes % 2.5 L Eosinophils % 0.0 D Basophils % 0.2 Nucleated RBC % 0 PT with INR 12.00 INR 1.02 PTT (Actin FS) 27.1 Sodium Potassium Chloride Carbon Dioxide Anion Gap BUN Creatinine Creat Clearance w eGFR Random Glucose Calcium Phosphorus Magnesium Urine Color Yellow Urine Appearance Slcloudy Urine pH 5.0 Ur Specific Dearing 1.023 Urine Protein Negative Urine Glucose (UA) Negative Urine Ketones Negative Urine Blood Negative Urine Nitrite Negative Urine Bilirubin Negative Urine Urobilinogen Negative Ur Leukocyte Esterase Trace Urine WBC (Auto) 7 Urine RBC (Auto) 1 Ur Epithelial Cells Moderate Urine Bacteria Rare Urine Mucus Few Blood Type Antibody Screen 06/27/18 06/27/18 05:30 05:30 WBC RBC Hgb Hct MCV MCH MCHC RDW Plt Count MPV Absolute Neuts (auto) Neutrophils % Lymphocytes % Monocytes % Eosinophils % Basophils % Nucleated RBC % PT with INR INR PTT (Actin FS) Sodium 139 Potassium 4.6 Chloride 104 Carbon Dioxide 27 Anion Gap 7 L BUN 18 Creatinine 0.8 Creat Clearance w eGFR > 60 Random Glucose 158 H Calcium 8.5 Phosphorus 2.6 Magnesium 2.2 Urine Color Urine Appearance Urine pH Ur Specific Dearing Urine Protein Urine Glucose (UA) Urine Ketones Urine Blood Urine Nitrite Urine Bilirubin Urine Urobilinogen Ur Leukocyte Esterase Urine WBC (Auto) Urine RBC (Auto) Ur Epithelial Cells Urine Bacteria Urine Mucus Blood Type O POSITIVE Antibody Screen Negative ASSESSMENT AND PLAN: Brain Mass Cerebral Edema h/o Breast Ca s/p resection/chemo/RT HTN - continue decadron - continue empiric antiepileptics - for OR today - DVT prophylaxis - POst op ICU monitoring Dr Gray
--- NOTE | 2018-06-27 12:48 | PN ---
Physical Exam: SUBJECTIVE: Patient seen and examined at bedside. No acute events overnight. Patient reports feeling well this morning with minimal headache. Denies changes in vision, nausea, vomiting, dizziness, chest pain, SOB, palpitations, abdominal pain, urinary symptoms. NPO since midnight. Surgery scheduled at 2pm today. OBJECTIVE: Vital Signs Period Temp Pulse Resp BP Sys/Gilman Pulse Ox Last 24 Hr 98.0 F-98.9 F 62-85 18-20 109-155/57-81 95-96 GENERAL: The patient is awake, alert, and fully oriented, in no acute distress. HEAD: Normal with no signs of trauma. EYES: PERRLA, extraocular movements intact, sclera anicteric, conjunctiva clear. ENT: Ears normal, nares patent, oropharynx clear without exudates, moist mucous membranes. NECK: Trachea midline, full range of motion, supple. LUNGS: Breath sounds equal, clear to auscultation bilaterally. HEART: Regular rate and rhythm, S1, S2 without murmur, rub or gallop. ABDOMEN: Soft, nontender, nondistended, normoactive bowel sounds. EXTREMITIES: 2+ pulses, warm, well-perfused, no edema. NEUROLOGICAL: AAOx3, Cranial nerves II through XII grossly intact. Sensation intact, motor 5/5. Normal speech, gait not observed. PSYCH: Normal mood, normal affect. SKIN: Warm, dry, normal turgor, no rashes or lesions noted Laboratory Results - last 24 hr 06/26/18 06/27/18 06/27/18 13:00 05:30 05:30 WBC 12.8 H RBC 4.58 Hgb 13.7 Hct 42.6 MCV 93.0 MCH 29.8 MCHC 32.0 RDW 14.7 Plt Count 360 MPV 7.6 Absolute Neuts (auto) 11.2 H Neutrophils % 87.5 H D Lymphocytes % 9.8 D Monocytes % 2.5 L Eosinophils % 0.0 D Basophils % 0.2 Nucleated RBC % 0 PT with INR 12.00 INR 1.02 PTT (Actin FS) 27.1 Sodium Potassium Chloride Carbon Dioxide Anion Gap BUN Creatinine Creat Clearance w eGFR Random Glucose Calcium Phosphorus Magnesium Urine Color Yellow Urine Appearance Slcloudy Urine pH 5.0 Ur Specific Bruin 1.023 Urine Protein Negative Urine Glucose (UA) Negative Urine Ketones Negative Urine Blood Negative Urine Nitrite Negative Urine Bilirubin Negative Urine Urobilinogen Negative Ur Leukocyte Esterase Trace Urine WBC (Auto) 7 Urine RBC (Auto) 1 Ur Epithelial Cells Moderate Urine Bacteria Rare Urine Mucus Few Blood Type Antibody Screen 06/27/18 06/27/18 06/27/18 05:30 05:30 09:35 WBC RBC Hgb Hct MCV MCH MCHC RDW Plt Count MPV Absolute Neuts (auto) Neutrophils % Lymphocytes % Monocytes % Eosinophils % Basophils % Nucleated RBC % PT with INR INR PTT (Actin FS) Sodium 139 Potassium 4.6 Chloride 104 Carbon Dioxide 27 Anion Gap 7 L BUN 18 Creatinine 0.8 Creat Clearance w eGFR > 60 Random Glucose 158 H Calcium 8.5 Phosphorus 2.6 Magnesium 2.2 Urine Color Urine Appearance Urine pH Ur Specific Bruin Urine Protein Urine Glucose (UA) Urine Ketones Urine Blood Urine Nitrite Urine Bilirubin Urine Urobilinogen Ur Leukocyte Esterase Urine WBC (Auto) Urine RBC (Auto) Ur Epithelial Cells Urine Bacteria Urine Mucus Blood Type O POSITIVE O POSITIVE Antibody Screen Negative Active Medications Generic Name Dose Route Start Last Admin Trade Name Kwesiq PRN Reason Stop Dose Admin Dexamethasone Sodium Phosphate 4 mg 06/26/18 09:00 06/27/18 08:27 Decadron Injection - IVPUSH 4 mg Q6H-IV [facility]IG[facility]ALIA Administration Levetiracetam 500 mg 06/26/18 22:00 06/27/18 09:32 Keppra Injection - IVPB 500 mg BID MIGDALIA Administration Losartan Potassium 100 mg 06/25/18 22:45 06/26/18 21:12 Cozaar - PO 100 mg HS MIGDALIA Administration Metoprolol Succinate 100 mg 06/25/18 23:15 06/26/18 21:13 Toprol Xl - PO 100 mg HS MIGDALIA Administration Nifedipine 90 mg 06/26/18 10:00 06/27/18 10:05 Procardia Xl - PO Not Given DAILY MIGDALIA Pantoprazole Sodium 40 mg 06/25/18 19:00 06/27/18 09:35 Protonix Iv IVPUSH 40 mg DAILY MIGDALIA Administration ASSESSMENT/PLAN: Patient is a 53 year old female with past medical history of Hypertension and right-sided breast cancer s/p resection, chemotherapy and radiation therapy ( 2015), presented with 1 week history of severe, 10/10, intermittent headache. Brain MRI showed a large mass with leftward midline shift. #Neurology 1) Headache, likely 2/2 brain mass with leftward midline shift -Head CT done. -Brain MRI: Large mass within the inferior thalamic region. Leftward midline shift. Mass effect and edema. -Neuro checks q4h. -Neurosurgery (Dr. Vázquez) consulted. -IV Decadron 4 mg Q6H MIGDALIA -IV Protonix 40mg Daily -IV Keppra 500 mg IV BID for seizure prophylaxis -NPO except PO meds -NO IV FLUIDS OR IV MANNITOL. Before giving any additional medication, please call Dr. Vázquez. #Cardiology 1)Hypertension -Continue home medications: Losartan 100mg, Procardia XL 70mg, Metoprolol 100mg -Lasix 40mg held. -Cardiology (Dr. Keenan) consulted for cardiac clearance. #Nephrology 1) Hypokalemia -K-dur given -will continue to monitor #FEN -Not on any standing fluids -No IV fluids or mannitol -Routine bmp monitoring, replete PRN -Diet as per surgery #Prophylaxis 1)DVT - SCDs, both legs 2)GI- Protonix 40mg IV daily #Disposition -full code -ICU for closer monitoring Visit type - Emergency Visit Emergency Visit: Yes ED Registration Date: 06/25/18 Care time: The patient presented to the Emergency Department on the above date and was hospitalized for further evaluation of their emergent condition. - New Patient This patient is new to me today: Yes Date on this admission: 06/27/18 - Critical Care Critical Care patient: Yes Total Critical Care Time (in minutes): 40 Critical Care Statement: The care of this patient involved high complexity decision making to prevent further life threatening deterioration of the patient 's condition and/or to evaluate & treat vital organ system(s) failure or risk of failure.
[2018-06-27] MEDS ORDERED: BACITRACIN 15 GM TUBE TOPICAL OINTMENT ONE (14:22)
[2018-06-27] MEDS ORDERED: GENTAMICIN SO4 80 MG/2 ML VIAL ONE (14:22)
[2018-06-27] MEDS ORDERED: ROCURONIUM BROMIDE 50 MG/5 ML VIAL ONE ×2 (14:30→16:17)
[2018-06-27] MEDS ORDERED: PROPOFOL 20 ML ONE ×2 (14:30→15:25)
[2018-06-27] MEDS ORDERED: MIDAZOLAM HCL 2 MG/2 ML SINGLE DOSE VIAL ONE (14:30)
[2018-06-27] MEDS ORDERED: LIDOCAINE HCL/PF 2% SDV 5ML VIAL ONE (14:32)
[2018-06-27] MEDS ORDERED: ceFAZolin SODIUM 1 GM VIAL ONE (14:38)
[2018-06-27] MEDS ORDERED: SODIUM CHLORIDE 0.9% P/F 10 ML VIAL IJ ONE (14:38)
[2018-06-27] MEDS ORDERED: LIDOCAINE 1%/EPI 1:100000 (20 ML MULTI DOSE VIAL) ONE (14:42)
[2018-06-27] MEDS ORDERED: THROMBIN (BOVINE) 5,000 UNIT VIAL TP ONE ×2 (14:59→16:11)
[2018-06-27] MEDS ORDERED: VANCOMYCIN 1,000 MG VIAL (RESTRICTED TO ID ONLY) IVPB ONE (15:05)
[2018-06-27] MEDS ORDERED: ceFAZolin SODIUM 1 GM VIAL IVPB ONE (15:05)
[2018-06-27] MEDS ORDERED: fentaNYL CITRATE 250 MCG/5 ML VIAL ONE (15:32)
[2018-06-27] MEDS ORDERED: DEXAMETHASONE SOD PHOSPHATE 4 MG/1 ML VIAL ONE (15:43)
[2018-06-27] MEDS ORDERED: ONDANSETRON 4 MG/2 ML VIAL ONE (15:43)
[2018-06-27] MEDS ORDERED: VANCOMYCIN 1,000 MG VIAL (RESTRICTED TO ID ONLY) ONE (15:53)
[2018-06-27] MEDS ORDERED: FUROSEMIDE 40 MG/4 ML INJECTABLE VIAL ONE ×2 (16:16→16:30)
[2018-06-27] MEDS ORDERED: MANNITOL 25% 12.5 GM/50 ML VIAL IVPB ONE (16:30)
[2018-06-27] MEDS: LABETALOL HCL INJECTION 1,000 MG in SODIUM CHLORIDE 800 ML IV SCH ×2 (16:40→21:27)
[2018-06-27] MEDS ORDERED: GLYCOPYRROLATE 0.2 MG/1 ML VIAL ONE (17:47)
[2018-06-27] MEDS ORDERED: NEOSTIGMINE METHYLSULFATE 0.5 MG/1 ML - 10 ML MDV ONE (17:48)
[2018-06-27] MEDS ORDERED: LIDOCAINE HCL 2% JELLY (5 ML/TUBE) ONE (17:59)
--- NOTE | 2018-06-27 18:17 | OP ---
Operative Note - Note: Operative Date: 06/27/18 Pre-Operative Diagnosis: Right temporal brain mass Operation: Right temporal craniotomy with excision of brain tumor Post-Operative Diagnosis: Same as Pre-op Surgeon: Jose A Vázquez List Of First Job Ideas: Tad Xavier Anesthesiologist/FREIGHT RATE CLERK: Chito Kate Anesthesia: General Specimens Removed: Brain mass Estimated Blood Loss (mls): 200 Drains, Volume Out (mls): 200 (Mclaughlin) Fluid Volume Replaced (mls): 1,200 Operative Report Dictated: Yes
--- NOTE | 2018-06-27 18:20 | SURG ---
Surgery Photographic Process Worker Note Photographic Process Worker: Tad Xavier PA-C Date of Service: 06/27/18 Diagnosis: Right temporal brain mass Procedure: Right temporal craniotomy with excision of brain mass I was present for the entirety of the operative procedure. For further detail, please refer to operative report. Visit type - Case Type Case Type: ED Admission - New patient This patient is new to me today: Yes Date on this admission: 06/27/18
[2018-06-27] MEDS ORDERED: ACETAMINOPHEN WITH CODEINE 300MG/30MG TABLET PO PRN (18:22)
[2018-06-27] MEDS ORDERED: ONDANSETRON 4 MG/2 ML VIAL IVPUSH PRN ×2 (18:22→19:04)
[2018-06-27] MEDS ORDERED: LIDOCAINE 1%/EPI 1:100000 (20 ML MULTI DOSE VIAL) INF ONE (18:50)
[2018-06-27] MEDS ORDERED: PROMETHAZINE HCL 25 MG/1 ML VIAL IVPUSH PRN (19:04)
[2018-06-27] MEDS ORDERED: LACTATED RINGERS SOLUTION 1,000 ML IV SCH (19:15)
[2018-06-27] MEDS ORDERED: SODIUM CHLORIDE 500 ML IV STA (19:21)
--- NOTE | 2018-06-27 19:24 | PN ---
Progress Note (short form) - Note Progress Note: Patient received in the ICU post surgery. Underwent Right temporal craniotomy with excision of brain tumor s/p Right temporal brain mass. Patient was hypotensive to 77/35 mmHg MAP 50 in A line. It improved to 106/84 MAP 64 after 500 mls of IV Bolus NS. Pending repeat Head CT. Will monitor.
[2018-06-27] MEDS: LOSARTAN POTASSIUM 50 MG TABLET (FP) PO SCH (21:42)
[2018-06-27] MEDS: DOCUSATE SODIUM 100 MG CAPSULE (FP) PO SCH (21:42)
[2018-06-27] MEDS: MUPIROCIN 2% TOPICAL OINTMENT FOR DECOLONIZATION NS SCH (21:44)
[2018-06-27] MEDS ORDERED: CHLORHEXIDINE GLUCONATE 4% CLEANSER FOR DECOLONIZATION TP SCH (22:00)
[2018-06-27] MEDS: ACETAMINOPHEN 1000 MG/100 ML VIAL (NON FORMULARY) IVPB PRN (22:28)
[2018-06-28] MEDS ORDERED: ceFAZolin SODIUM 1 GM VIAL ONE ×3 (00:56→17:45)
[2018-06-28] MEDS ORDERED: DEXTROSE 5%-WATER - 50 ML IVPB ONE ×3 (00:56→17:46)
[2018-06-28] MEDS: CEFAZOLIN 1 GM in DEXTROSE 5%-WATER - 50 ML IVPB SCH ×3 (01:00→17:51)
[2018-06-28] MEDS: DEXAMETHASONE SOD PHOSPHATE 4 MG/1 ML VIAL IVPUSH SCH ×4 (02:07→21:19)
[2018-06-28] MEDS: DOCUSATE SODIUM 100 MG CAPSULE (FP) PO SCH ×3 (05:56→21:16)
[2018-06-28] MEDS: ACETAMINOPHEN 1000 MG/100 ML VIAL (NON FORMULARY) IVPB PRN ×2 (06:00→13:26)
[2018-06-28 06:09] LABS: HEMATOCRIT 34.3 % (32.4-45.2); MCH 29.8 pg (25.7-33.7); MCHC 32.1 g/dl (32.0-36.0); MEAN PLT VOLUME 7.6 fl (7.5-11.1); PLATELET COUNT 318 K/MM3 (134-434); RBC 3.69 M/mm3 (3.60-5.2); RDW 14.8 % (11.6-15.6); WHITE BLOOD COUNT 14.5 K/mm3 (4.0-10.0)
[2018-06-28 06:34] LABS: ANION GAP 9 MMOL/L (8-16); BLOOD UREA NITROGEN 21 mg/dL (7-18); CALCIUM 7.9 mg/dL (8.5-10.1); CHLORIDE 108 mmol/L (98-107); CO2 25 mmol/L (21-32); CREATININE 1.1 mg/dL (0.55-1.3); GLUCOSE,RANDOM 183 mg/dL (74-106); MAGNESIUM 1.8 mg/dL (1.8-2.4); PHOSPHOROUS 3.2 mg/dL (2.5-4.9); POTASSIUM 3.6 mmol/L (3.5-5.1); SODIUM 141 mmol/L (136-145)
--- NOTE | 2018-06-28 07:53 | PN ---
Progress Note (short form) - Note Progress Note: SUBJECTIVE: Patient seen and examined in the ICU. 24HR: -s/p Craniotomy -doing well post op -on labetolol overnight, off this am OBJECTIVE: Vital Signs Temp 98 F 06/28/18 04:00 Pulse 65 06/28/18 06:00 Resp 15 06/28/18 06:00 BP 121/51 L 06/28/18 06:00 Pulse Ox 98 06/27/18 22:00 Intake & Output 06/27/18 06/27/18 06/28/18 11:59 23:59 11:59 Intake Total 1350 1815 Output Total 1200 1650 900 Balance -1200 -300 915 Weight 87.09 kg Intake: IV 1200 1565 Lactated Ringers Solution 125 1,000 ml @ 125 mls/hr IV ASDIR [facility] Rx#: [id number] Normodyne Injection - 1, 1440 000 mg In Normal Saline - 800 ml @ 2 MG/MIN 120 mls/hr IV TITR MIGDALIA Rx#: [id number] IVPB 150 250 Output: Urine 1200 1400 900 Mclaughlin 900 900 Void 1200 250 Estimated Blood Loss 250 Other: Voiding Method Bedside Commode Bedside Commode Bowel Movement No No Height 5 ft 7 in Body Mass Index (BMI) 30.0 Active Medications Acetaminophen (Ofirmev Injection -) 1,000 mg IVPB Q6H PRN PRN Reason: PAIN LEVEL 7 - 10 Last Admin: 06/28/18 06:00 Dose: 1,000 mg Acetaminophen/Codeine Phosphate (Tylenol # 3 -) 1 tab PO Q4H PRN PRN Reason: PAIN LEVEL 1-5 Dexamethasone Sodium Phosphate (Decadron Injection -) 4 mg IVPUSH Q6H-IV [facility] Docusate Sodium (Colace -) 100 mg PO TID [facility] Last Admin: 06/28/18 05:56 Dose: Not Given Fentanyl (Sublimaze Injection -) 50 mcg IVPUSH [id number] PRN PRN Reason: PAIN-PACU ORDER X 4 DOSES ONLY Heparin Sodium (Porcine) (Heparin -) 5,000 unit SQ Q8H-IV [facility] Cefazolin Sodium 1 gm/ (Dextrose) 50 mls @ 100 mls/hr IVPB Q8H-IV [facility] Stop: 06/29/18 01:59 EST Last Admin: 06/28/18 01:00 Dose: 100 mls/hr Labetalol HCl 1,000 mg/ Sodium (Chloride) 1,000 mls @ 120 mls/hr IV TITR [facility]IG[facility]ALIA; Protocol Last Titration: 06/28/18 02:45 Dose: 2 mg/min, 120 mls/hr Levetiracetam (Keppra Injection -) 500 mg IVPB BID [facility]IG[facility] Losartan Potassium (Cozaar -) 100 mg PO HS MIGDALIA Metoprolol Succinate (Toprol Xl -) 100 mg PO HS [facility] Mupirocin (Bactroban Ointment (For Decolonization) -) 1 applic NS BID MIG[facility]ALIA Stop: 07/02/18 21:59 Last Admin: 06/27/18 21:44 Dose: 1 applic Nifedipine (Procardia Xl -) 90 mg PO DAILY [facility] Pantoprazole Sodium (Protonix Iv) 40 mg IVPUSH DAILY MIGDALIA Promethazine HCl (Phenergan Injection -) 12.5 mg IVPUSH Q6H PRN PRN Reason: NAUSEA-FOR RESCUE AFTER 15 MIN 10/13 09:35 Dose: 40 mg Gen: NAD at rest, awake , alert following commands Heart: RRR Lung: decreased breath sounds at the bases Abd: soft, nontender Ext: no edema Laboratory Results - last 24 hr 06/27/18 06/27/18 06/28/18 05:30 09:35 05:30 WBC 14.5 H RBC 3.69 Hgb 11.0 Hct 34.3 D MCV 93.0 MCH 29.8 MCHC 32.1 RDW 14.8 Plt Count 318 MPV 7.6 Sodium Potassium Chloride Carbon Dioxide Anion Gap BUN Creatinine Creat Clearance w eGFR Random Glucose Calcium Phosphorus Magnesium Blood Type O POSITIVE O POSITIVE Antibody Screen Negative 06/28/18 05:30 WBC RBC Hgb Hct MCV MCH MCHC RDW Plt Count MPV Sodium 141 Potassium 3.6 Chloride 108 H Carbon Dioxide 25 Anion Gap 9 BUN 21 H Creatinine 1.1 Creat Clearance w eGFR 51.96 Random Glucose 183 H Calcium 7.9 L Phosphorus 3.2 Magnesium 1.8 Blood Type Antibody Screen ASSESSMENT AND PLAN: Brain Mass Cerebral Edema h/o Breast Ca s/p resection/chemo/RT HTN -BP control - continue decadron and antiepileptics as per Neurosurg - DVT prophylaxis - Ok for Med Surg today Sveta ACNP 4436 35min CCT
--- NOTE | 2018-06-28 08:53 | PN ---
Progress Note (short form) - Note Progress Note: ANESTHESIOLOGY POST-OP CHECK 53F s/p right craniotomy and resection of tumor under general anesthesia, POD #1 : no acute complaints, denies N/V, pain tolerable. Vital Signs Temperature 98 F 06/28/18 04:00 Pulse Rate 62 06/28/18 08:00 Respiratory Rate 15 06/28/18 08:00 Blood Pressure 108/51 L 06/28/18 08:00 O2 Sat by Pulse Oximetry (%) 98 06/27/18 22:00 Active Medications Acetaminophen (Ofirmev Injection -) 1,000 mg IVPB Q6H PRN PRN Reason: PAIN LEVEL 7 - 10 Last Admin: 06/28/18 06:00 Dose: 1,000 mg Acetaminophen/Codeine Phosphate (Tylenol # 3 -) 1 tab PO Q4H PRN PRN Reason: PAIN LEVEL 1-5 Dexamethasone Sodium Phosphate (Decadron Injection -) 4 mg IVPUSH Q6H-IV [facility] Docusate Sodium (Colace -) 100 mg PO TID [facility] Last Admin: 06/28/18 05:56 Dose: Not Given Fentanyl (Sublimaze Injection -) 50 mcg IVPUSH [id number] PRN PRN Reason: PAIN-PACU ORDER X 4 DOSES ONLY Heparin Sodium (Porcine) (Heparin -) 5,000 unit SQ TID [facility] Cefazolin Sodium 1 gm/ (Dextrose) 50 mls @ 100 mls/hr IVPB Q8H-IV [facility]IA Stop: 06/29/18 01:59 EST Last Admin: 06/28/18 01:00 Dose: 100 mls/hr Labetalol HCl 1,000 mg/ Sodium (Chloride) 1,000 mls @ 120 mls/hr IV TITR [facility]; Protocol Last Titration: 06/28/18 02:45 Dose: 2 mg/min, 120 mls/hr Levetiracetam (Keppra Injection -) 500 mg IVPB BID [facility] Losartan Potassium (Cozaar -) 100 mg PO HS MIGDALIA Metoprolol Succinate (Toprol Xl -) 100 mg PO HS [facility] Mupirocin (Bactroban Ointment (For Decolonization) -) 1 applic NS BID [facility] Stop: 07/02/18 21:59 Last Admin: 06/27/18 21:44 Dose: 1 applic Nifedipine (Procardia Xl -) 90 mg PO DAILY MIGDALIA Pantoprazole Sodium (Protonix Iv) 40 mg IVPUSH DAILY MIGDALIA Promethazine HCl (Phenergan Injection -) 12.5 mg IVPUSH Q6H PRN PRN Reason: NAUSEA-FOR RESCUE AFTER 15 MIN Gen: awake, drowsy, NAD No apparent anesthesia complications. Pain controlled. Continue management as per primary team.
[2018-06-28] MEDS: HEPARIN NA (PORCINE) 5,000 UNITS/ML 1ML VIAL SQ SCH ×3 (08:58→21:16)
[2018-06-28] MEDS: PANTOPRAZOLE SODIUM 40 MG VIAL IVPUSH SCH (09:00)
[2018-06-28] MEDS: levETIRAcetam 500 MG/5 ML INJECTION VIAL IVPB SCH ×2 (09:00→21:16)
[2018-06-28] MEDS: MUPIROCIN 2% TOPICAL OINTMENT FOR DECOLONIZATION NS SCH ×2 (09:04→21:30)
[2018-06-28] MEDS: NIFEdipine E.R. 90 MG TABLET (FP) PO SCH (13:25)
--- NOTE | 2018-06-28 13:28 | PN ---
Progress Note, Physician Chief Complaint: Headache less History of Present Illness: S/P rt temporal craniotomy - Current Medication List Current Medications: Active Medications Acetaminophen (Ofirmev Injection -) 1,000 mg IVPB Q6H PRN PRN Reason: PAIN LEVEL 7 - 10 Last Admin: 06/28/18 06:00 Dose: 1,000 mg Acetaminophen/Codeine Phosphate (Tylenol # 3 -) 1 tab PO Q4H PRN PRN Reason: PAIN LEVEL 1-5 Dexamethasone Sodium Phosphate (Decadron Injection -) 4 mg IVPUSH Q6H-IV [facility] Last Admin: 06/28/18 08:59 Dose: 4 mg Docusate Sodium (Colace -) 100 mg PO TID [facility] Last Admin: 06/28/18 05:56 Dose: Not Given Fentanyl (Sublimaze Injection -) 50 mcg IVPUSH [id number] PRN PRN Reason: PAIN-PACU ORDER X 4 DOSES ONLY Heparin Sodium (Porcine) (Heparin -) 5,000 unit SQ TID [facility] Last Admin: 06/28/18 08:58 Dose: 5,000 unit Cefazolin Sodium 1 gm/ (Dextrose) 50 mls @ 100 mls/hr IVPB Q8H-IV [facility]IA Stop: 06/29/18 01:59 EST Last Admin: 06/28/18 09:07 Dose: 100 mls/hr Labetalol HCl 1,000 mg/ Sodium (Chloride) 1,000 mls @ 120 mls/hr IV TITR [facility]; Protocol Last Titration: 06/28/18 07:30 Dose: 0 mg/min, 0 mls/hr Levetiracetam (Keppra Injection -) 500 mg IVPB BID [facility] Last Admin: 06/28/18 09:00 Dose: 500 mg Losartan Potassium (Cozaar -) 100 mg PO HS MIGDALIA Metoprolol Succinate (Toprol Xl -) 100 mg PO HS [facility] Mupirocin (Bactroban Ointment (For Decolonization) -) 1 applic NS BID [facility] Stop: 07/02/18 21:59 Last Admin: 06/28/18 09:04 Dose: 1 applic Nifedipine (Procardia Xl -) 90 mg PO DAILY [facility] Pantoprazole Sodium (Protonix Iv) 40 mg IVPUSH DAILY [facility] Last Admin: 06/28/18 09:00 Dose: 40 mg Promethazine HCl (Phenergan Injection -) 12.5 mg IVPUSH Q6H PRN PRN Reason: NAUSEA-FOR RESCUE AFTER 15 MIN - Objective Vital Signs: Vital Signs Temperature 98 F 06/28/18 04:00 Pulse Rate 59 L 06/28/18 12:00 Respiratory Rate 20 06/28/18 12:00 Blood Pressure 135/68 06/28/18 12:00 O2 Sat by Pulse Oximetry (%) 98 06/28/18 08:35 Constitutional: Yes: Mild Distress Eyes: Yes: WNL HENT: Yes: WNL Neck: Yes: WNL Cardiovascular: Yes: WNL Respiratory: Yes: WNL Gastrointestinal: Yes: Normal Bowel Sounds ...Rectal Exam: Yes: Deferred Genitourinary: Yes: WNL Breast(s): Yes: WNL Musculoskeletal: Yes: WNL Integumentary: Yes: WNL Neurological: Yes: Alert ...Motor Strength: WNL Labs: CBC, BMP 06/28/18 05:30 06/28/18 05:30 INR, PTT INR 1.02 (0.83-1.09) 06/27/18 05:30 Assessment/Plan Stable continue same trt
[2018-06-28] MEDS: LABETALOL HCL INJECTION 1,000 MG in SODIUM CHLORIDE 800 ML IV SCH (17:51)
[2018-06-28] MEDS: LOSARTAN POTASSIUM 50 MG TABLET (FP) PO SCH (21:16)
[2018-06-29] MEDS: DEXAMETHASONE SOD PHOSPHATE 4 MG/1 ML VIAL IVPUSH SCH ×4 (02:53→20:59)
[2018-06-29] MEDS: HEPARIN NA (PORCINE) 5,000 UNITS/ML 1ML VIAL SQ SCH ×3 (05:40→20:59)
[2018-06-29] MEDS: DOCUSATE SODIUM 100 MG CAPSULE (FP) PO SCH ×3 (05:40→20:59)
--- NOTE | 2018-06-29 07:19 | PN ---
Progress Note (short form) - Note Progress Note: SUBJECTIVE: Patient seen and examined in the ICU. 24HR: -BP stable -no complaints, pain under control -exam non-focal OBJECTIVE: Vital Signs Temp 99.2 F 06/29/18 05:00 Pulse 70 06/29/18 06:00 Resp 20 06/29/18 06:00 BP 155/75 06/29/18 06:00 Pulse Ox 97 06/29/18 05:18 Intake & Output 06/28/18 06/28/18 06/29/18 11:59 23:59 10:59 Intake Total 1815 980 170 Output Total 900 240 950 Balance 915 740 -780 Weight 85.82 kg Intake: IV 1565 60 Lactated Ringers Solution 125 1,000 ml @ 125 mls/hr IV ASDIR [facility]IG[facility]IA Rx#: [id number] Normodyne Injection - 1, 1440 60 000 mg In Normal Saline - 800 ml @ 2 MG/MIN 120 mls/hr IV TITR [facility] Rx#: [id number] IVPB 250 200 50 Oral 720 120 Output: Urine 900 240 950 Mclaughlin 900 240 950 Other: Voiding Method Bedside Commode Indwelling Catheter Bowel Movement No No No Weight Measurement Method Built in [facility] Active Medications Acetaminophen (Ofirmev Injection -) 1,000 mg IVPB Q6H PRN PRN Reason: PAIN LEVEL 7 - 10 Last Admin: 06/28/18 13:26 Dose: 1,000 mg Acetaminophen/Codeine Phosphate (Tylenol # 3 -) 1 tab PO Q4H PRN PRN Reason: PAIN LEVEL 1-5 Last Admin: 06/28/18 20:50 Dose: 1 tab Dexamethasone Sodium Phosphate (Decadron Injection -) 4 mg IVPUSH Q6H-IV [facility] Last Admin: 06/29/18 02:53 Dose: 4 mg Docusate Sodium (Colace -) 100 mg PO TID [facility] Last Admin: 06/29/18 05:40 Dose: 100 mg Fentanyl (Sublimaze Injection -) 50 mcg IVPUSH [id number] PRN PRN Reason: PAIN-PACU ORDER X 4 DOSES ONLY Heparin Sodium (Porcine) (Heparin -) 5,000 unit SQ TID [facility] Last Admin: 06/29/18 05:40 Dose: 5,000 unit Labetalol HCl 1,000 mg/ Sodium (Chloride) 1,000 mls @ 120 mls/hr IV TITR [facility]; Protocol Last Admin: 06/28/18 17:51 Dose: Not Given Levetiracetam (Keppra Injection -) 500 mg IVPB BID [facility] Last Admin: 06/28/18 21:16 Dose: 500 mg Losartan Potassium (Cozaar -) 100 mg PO HS [facility] Last Admin: 06/28/18 21:16 Dose: 100 mg Metoprolol Succinate (Toprol Xl -) 100 mg PO HS [facility] Last Admin: 06/28/18 21:16 Dose: 100 mg Mupirocin (Bactroban Ointment (For Decolonization) -) 1 applic NS BID [facility] Stop: 07/02/18 21:59 Last Admin: 06/28/18 21:30 Dose: 1 applic Nifedipine (Procardia Xl -) 90 mg PO DAILY [facility] Last Admin: 06/28/18 13:25 Dose: 90 mg Pantoprazole Sodium (Protonix Iv) 40 mg IVPUSH DAILY [facility] Last Admin: 06/28/18 09:00 Dose: 40 mg Promethazine HCl (Phenergan Injection -) 12.5 mg IVPUSH Q6H PRN PRN Reason: NAUSEA-FOR RESCUE AFTER 15 MIN Gen: NAD at rest, awake , alert following commands Heart: RRR Lung: decreased breath sounds at the bases Abd: soft, nontender Ext: no edema Neuro: MAEx 4 CBCD WBC 14.5 K/mm3 (4.0-10.0) H 06/28/18 05:30 RBC 3.69 M/mm3 (3.60-5.2) 06/28/18 05:30 Hgb 11.0 GM/dL (10.7-15.3) 06/28/18 05:30 Hct 34.3 % (32.4-45.2) D 06/28/18 05:30 MCV 93.0 fl (80-96) 06/28/18 05:30 MCHC 32.1 g/dl (32.0-36.0) 06/28/18 05:30 RDW 14.8 % (11.6-15.6) 06/28/18 05:30 Plt Count 318 K/MM3 (134-434) 06/28/18 05:30 MPV 7.6 fl (7.5-11.1) 06/28/18 05:30 CMP Sodium 141 mmol/L (136-145) 06/28/18 05:30 Potassium 3.6 mmol/L (3.5-5.1) 06/28/18 05:30 Chloride 108 mmol/L (98-107) H 06/28/18 05:30 Carbon Dioxide 25 mmol/L (21-32) 06/28/18 05:30 Anion Gap 9 MMOL/L (8-16) 06/28/18 05:30 BUN 21 mg/dL (7-18) H 06/28/18 05:30 Creatinine 1.1 mg/dL (0.55-1.3) 06/28/18 05:30 Creat Clearance w eGFR 51.96 (>60) 06/28/18 05:30 Calcium 7.9 mg/dL (8.5-10.1) L 06/28/18 05:30 Total Bilirubin 0.5 mg/dL (0.2-1) 06/26/18 05:30 AST 33 U/L (15-37) 06/26/18 05:30 ALT 53 U/L (13-61) 06/26/18 05:30 Alkaline Phosphatase 79 U/L (45-117) 06/26/18 05:30 Total Protein 7.6 g/dl (6.4-8.2) 06/26/18 05:30 Albumin 3.5 g/dl (3.4-5.0) 06/26/18 05:30 ASSESSMENT AND PLAN: Brain Mass Cerebral Edema h/o Breast Ca s/p resection/chemo/RT HTN -BP control - continue decadron and antiepileptics as per Neurosurg - DVT prophylaxis - Ok for Med Surg today [place] ACNP 4421 35min CCT
[2018-06-29] MEDS: MUPIROCIN 2% TOPICAL OINTMENT FOR DECOLONIZATION NS SCH ×2 (09:02→20:59)
[2018-06-29] MEDS: levETIRAcetam 500 MG/5 ML INJECTION VIAL IVPB SCH ×2 (09:03→20:59)
[2018-06-29] MEDS: PANTOPRAZOLE SODIUM 40 MG VIAL IVPUSH SCH (09:05)
[2018-06-29] MEDS: NIFEdipine E.R. 90 MG TABLET (FP) PO SCH (09:05)
--- NOTE | 2018-06-29 12:21 | PN ---
Progress Note, Physician Chief Complaint: Feels better History of Present Illness: S/P craniotomy and frontal lobe tumor resection - Current Medication List Current Medications: Active Medications Acetaminophen (Ofirmev Injection -) 1,000 mg IVPB Q6H PRN PRN Reason: PAIN LEVEL 7 - 10 Last Admin: 06/28/18 13:26 Dose: 1,000 mg Acetaminophen/Codeine Phosphate (Tylenol # 3 -) 1 tab PO Q4H PRN PRN Reason: PAIN LEVEL 1-5 Last Admin: 06/28/18 20:50 Dose: 1 tab Dexamethasone Sodium Phosphate (Decadron Injection -) 4 mg IVPUSH Q6H-IV [facility] Last Admin: 06/29/18 08:57 Dose: 4 mg Docusate Sodium (Colace -) 100 mg PO TID [facility] Last Admin: 06/29/18 05:40 Dose: 100 mg Fentanyl (Sublimaze Injection -) 50 mcg IVPUSH [id number] PRN PRN Reason: PAIN-PACU ORDER X 4 DOSES ONLY Heparin Sodium (Porcine) (Heparin -) 5,000 unit SQ TID [facility] Last Admin: 06/29/18 05:40 Dose: 5,000 unit Labetalol HCl 1,000 mg/ Sodium (Chloride) 1,000 mls @ 120 mls/hr IV TITR [facility]; Protocol Last Admin: 06/28/18 17:51 Dose: Not Given Levetiracetam (Keppra Injection -) 500 mg IVPB BID [facility] Last Admin: 06/29/18 09:03 Dose: 500 mg Losartan Potassium (Cozaar -) 100 mg PO [facility] Last Admin: 06/28/18 21:16 Dose: 100 mg Metoprolol Succinate (Toprol Xl -) 100 mg PO [facility] Last Admin: 06/28/18 21:16 Dose: 100 mg Mupirocin (Bactroban Ointment (For Decolonization) -) 1 applic NS BID [facility] Stop: 07/02/18 21:59 Last Admin: 06/29/18 09:02 Dose: 1 applic Nifedipine (Procardia Xl -) 90 mg PO DAILY [facility] Last Admin: 06/29/18 09:05 Dose: 90 mg Pantoprazole Sodium (Protonix Iv) 40 mg IVPUSH DAILY [facility] Last Admin: 06/29/18 09:05 Dose: 40 mg Promethazine HCl (Phenergan Injection -) 12.5 mg IVPUSH Q6H PRN PRN Reason: NAUSEA-FOR RESCUE AFTER 15 MIN - Objective Vital Signs: Vital Signs Temperature 99.6 F 06/29/18 10:58 Pulse Rate 76 06/29/18 10:58 Respiratory Rate 18 06/29/18 10:58 Blood Pressure 163/76 06/29/18 10:58 O2 Sat by Pulse Oximetry (%) 97 06/29/18 08:00 Constitutional: Yes: No Distress Eyes: Yes: WNL HENT: Yes: WNL Neck: Yes: WNL Respiratory: Yes: Regular Gastrointestinal: Yes: WNL ...Rectal Exam: Yes: Deferred Genitourinary: Yes: Arnoldo Present Breast(s): Yes: WNL Wound/Incision: Yes: Clean/Dry Neurological: Yes: Alert Psychiatric: Yes: Alert Labs: CBC, BMP 06/28/18 05:30 06/28/18 05:30 INR, PTT INR 1.02 (0.83-1.09) 06/27/18 05:30 Assessment/Plan Trsfer to regular floor MARYJANE ge
--- NOTE | 2018-06-29 16:07 | PN ---
Progress Note, Physician History of Present Illness: Pain controlled post-craniotomy and tumor resection. No events on telemetry. Weaned off labetolol gtt. - Current Medication List Current Medications: Active Medications Acetaminophen (Ofirmev Injection -) 1,000 mg IVPB Q6H PRN PRN Reason: PAIN LEVEL 7 - 10 Last Admin: 06/28/18 13:26 Dose: 1,000 mg Acetaminophen/Codeine Phosphate (Tylenol # 3 -) 1 tab PO Q4H PRN PRN Reason: PAIN LEVEL 1-5 Last Admin: 06/28/18 20:50 Dose: 1 tab Dexamethasone Sodium Phosphate (Decadron Injection -) 4 mg IVPUSH Q6H-IV [facility] Last Admin: 06/29/18 14:03 Dose: 4 mg Docusate Sodium (Colace -) 100 mg PO TID [facility] Last Admin: 06/29/18 13:26 Dose: 100 mg Fentanyl (Sublimaze Injection -) 50 mcg IVPUSH [id number] PRN PRN Reason: PAIN-PACU ORDER X 4 DOSES ONLY Heparin Sodium (Porcine) (Heparin -) 5,000 unit SQ TID [facility] Last Admin: 06/29/18 13:26 Dose: 5,000 unit Labetalol HCl 1,000 mg/ Sodium (Chloride) 1,000 mls @ 120 mls/hr IV TITR [facility]; Protocol Last Admin: 06/28/18 17:51 Dose: Not Given Levetiracetam (Keppra Injection -) 500 mg IVPB BID [facility] Last Admin: 06/29/18 09:03 Dose: 500 mg Losartan Potassium (Cozaar -) 100 mg PO [facility] Last Admin: 06/28/18 21:16 Dose: 100 mg Metoprolol Succinate (Toprol Xl -) 100 mg PO [facility] Last Admin: 06/28/18 21:16 Dose: 100 mg Mupirocin (Bactroban Ointment (For Decolonization) -) 1 applic NS BID [facility] Stop: 07/02/18 21:59 Last Admin: 06/29/18 09:02 Dose: 1 applic Nifedipine (Procardia Xl -) 90 mg PO DAILY [facility] Last Admin: 06/29/18 09:05 Dose: 90 mg Pantoprazole Sodium (Protonix Iv) 40 mg IVPUSH DAILY [facility] Last Admin: 06/29/18 09:05 Dose: 40 mg Promethazine HCl (Phenergan Injection -) 12.5 mg IVPUSH Q6H PRN PRN Reason: NAUSEA-FOR RESCUE AFTER 15 MIN - Objective Vital Signs: Vital Signs Temperature 99.4 F 06/29/18 14:00 Pulse Rate 74 06/29/18 14:00 Respiratory Rate 18 06/29/18 14:00 Blood Pressure 140/97 06/29/18 14:00 O2 Sat by Pulse Oximetry (%) 97 06/29/18 08:00 Constitutional: Yes: No Distress, Calm Neck: Yes: Supple Cardiovascular: Yes: Regular Rate and Rhythm Respiratory: Yes: Regular, CTA Bilaterally Gastrointestinal: Yes: Normal Bowel Sounds, Soft Edema: No Labs: CBC, BMP 06/28/18 05:30 06/28/18 05:30 INR, PTT INR 1.02 (0.83-1.09) 06/27/18 05:30 - ....Imaging EKG: Report Reviewed (Tele: NSR) Problem List - Problems (1) Hypertension Code(s): I10 - ESSENTIAL (PRIMARY) HYPERTENSION Qualifiers: Hypertension type: essential hypertension Qualified Code(s): I10 - Essential (primary) hypertension (2) Brain mass Code(s): G93.9 - DISORDER OF BRAIN, UNSPECIFIED (3) Breast cancer, left breast Code(s): C50.912 - MALIGNANT NEOPLASM OF UNSPECIFIED SITE OF LEFT FEMALE BREAST Qualifiers: Breast location: upper outer quadrant of breast (4) Status post craniotomy Code(s): Z98.890 - OTHER SPECIFIED POSTPROCEDURAL STATES Assessment/Plan 1. POD#2 Right temporal craniotomy with excision of brain tumor 2. h/o Breast Ca s/p resection/chemo/RT 3. HTN with improved control P:1. IV decadron with GI protection, empiric antiepileptics 2. Weaned off labetolol gtt 3. Continue Losartan 100mg PO HS; Metoprolol succinate 100mg qd, Nifedipine XL 90mg qd. 4. DVT and GI prophylaxis, transfer to non-telemetry floor care
[2018-06-29] MEDS ORDERED: PT OWN MED DRAWER 7, Y5N ONE (20:45)
[2018-06-29] MEDS: LABETALOL HCL INJECTION 1,000 MG in SODIUM CHLORIDE 800 ML IV SCH (20:47)
[2018-06-29] MEDS: LOSARTAN POTASSIUM 50 MG TABLET (FP) PO SCH (20:59)
[2018-06-30] MEDS: DEXAMETHASONE SOD PHOSPHATE 4 MG/1 ML VIAL IVPUSH SCH ×4 (03:11→21:14)
[2018-06-30] MEDS: HEPARIN NA (PORCINE) 5,000 UNITS/ML 1ML VIAL SQ SCH ×3 (06:06→21:13)
[2018-06-30] MEDS: DOCUSATE SODIUM 100 MG CAPSULE (FP) PO SCH ×3 (06:07→21:13)
--- NOTE | 2018-06-30 08:01 | PN ---
Progress Note (short form) - Note Progress Note: POD #3 Alert. Eyes open to verbal command. Follows instructions. Answers questions with complete sentences (no slurring of speech). Moving all extremities. Ambulating hallways. Voiding spontaneously. Tolerating PO diet. Denies n/v/f/c, BARR, dizziness, parasthesias. CP, palpitations or SOB. Last Vital Signs Temp Pulse Resp BP Pulse Ox 99.0 F 67 18 149/75 94 L 06/30/18 06:00 06/30/18 06:00 06/30/18 06:00 06/30/18 06:00 06/29/18 21:00 CBC, BMP 06/28/18 05:30 06/28/18 05:30 Gen: nad, awake, following commands Heart: rrr Abd: soft, nt. nd. Ext: Soft. nt. neg edema Neuro: MAEx 4 <Tad Xavier P - Last Filed: 06/30/18 08:06> - Note Progress Note: Agree with above PLAN Transfer to Regular Room [facility] GI/DVT Prophylaxis Check pathology Physical Therapy and Rehab planning Dry dressing over incision May wean steroids <Jose A Vázquez - Last Filed: 06/30/18 09:15> Problem List - Problems (1) Status post craniotomy Assessment/Plan: POD #3 Patient recovering well from right craniotomy with excision of brain tumor. Goals for today: - can downgrade to med-surg floor - cont oob and ambulate with PT - may shower today - replace telfa and tegaderm dressing after patient showers - cont decadron and keppra - f/u labs - dc planning to REHAB per medicine. Above plan discussed with Dr. Vázquez and agrees. Code(s): Z98.890 - OTHER SPECIFIED POSTPROCEDURAL STATES (2) Brain mass Code(s): G93.9 - DISORDER OF BRAIN, UNSPECIFIED (3) Breast cancer, left breast Code(s): C50.912 - MALIGNANT NEOPLASM OF UNSPECIFIED SITE OF LEFT FEMALE BREAST Qualifiers: Breast location: upper outer quadrant of breast <Tad Xavier P - Last Filed: 06/30/18 08:06>
--- NOTE | 2018-06-30 09:02 | PN ---
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 - Current Medication List Current Medications: Active Medications Acetaminophen (Ofirmev Injection -) 1,000 mg IVPB Q6H PRN PRN Reason: PAIN LEVEL 7 - 10 Last Admin: 06/28/18 13:26 Dose: 1,000 mg Acetaminophen/Codeine Phosphate (Tylenol # 3 -) 1 tab PO Q4H PRN PRN Reason: PAIN LEVEL 1-5 Last Admin: 06/28/18 20:50 Dose: 1 tab Dexamethasone Sodium Phosphate (Decadron Injection -) 4 mg IVPUSH Q6H-IV [facility] Last Admin: 06/30/18 03:11 Dose: 4 mg Docusate Sodium (Colace -) 100 mg PO TID [facility] Last Admin: 06/30/18 06:07 Dose: 100 mg Fentanyl (Sublimaze Injection -) 50 mcg IVPUSH [id number] PRN PRN Reason: PAIN-PACU ORDER X 4 DOSES ONLY Heparin Sodium (Porcine) (Heparin -) 5,000 unit SQ TID [facility] Last Admin: 06/30/18 06:06 Dose: 5,000 unit Labetalol HCl 1,000 mg/ Sodium (Chloride) 1,000 mls @ 120 mls/hr IV TITR [facility]; Protocol Last Admin: 06/29/18 20:47 Dose: Not Given Levetiracetam (Keppra Injection -) 500 mg IVPB BID [facility] Last Admin: 06/29/18 20:59 Dose: 500 mg Losartan Potassium (Cozaar -) 100 mg PO [facility] Last Admin: 06/29/18 20:59 Dose: 100 mg Metoprolol Succinate (Toprol Xl -) 100 mg PO HS [facility] Last Admin: 06/29/18 20:59 Dose: 100 mg Mupirocin (Bactroban Ointment (For Decolonization) -) 1 applic NS BID [facility] Stop: 07/02/18 21:59 Last Admin: 06/29/18 20:59 Dose: 1 applic Nifedipine (Procardia Xl -) 90 mg PO DAILY [facility] Last Admin: 06/29/18 09:05 Dose: 90 mg Pantoprazole Sodium (Protonix Iv) 40 mg IVPUSH DAILY [facility] Last Admin: 06/29/18 09:05 Dose: 40 mg Promethazine HCl (Phenergan Injection -) 12.5 mg IVPUSH Q6H PRN PRN Reason: NAUSEA-FOR RESCUE AFTER 15 MIN - Objective Vital Signs: Vital Signs Temperature 99.0 F 06/30/18 06:00 Pulse Rate 67 06/30/18 06:00 Respiratory Rate 18 06/30/18 06:00 Blood Pressure 149/75 06/30/18 06:00 O2 Sat by Pulse Oximetry (%) 94 L 06/29/18 21:00 Constitutional: Yes: No Distress Eyes: Yes: WNL HENT: Yes: WNL, Other Cardiovascular: Yes: WNL Respiratory: Yes: WNL Gastrointestinal: Yes: WNL ...Rectal Exam: Yes: Deferred Genitourinary: Yes: WNL Breast(s): Yes: WNL Extremities: Yes: WNL Edema: No Wound/Incision: Yes: Clean/Dry ...Motor Strength: WNL Psychiatric: Yes: Alert Labs: CBC, BMP 06/28/18 05:30 06/28/18 05:30 INR, PTT INR 1.02 (0.83-1.09) 06/27/18 05:30 Assessment/Plan trasfer to regular floor
[2018-06-30] MEDS ORDERED: PT OWN MED DRAWER 7, Y5N ONE (09:41)
[2018-06-30] MEDS: PANTOPRAZOLE SODIUM 40 MG VIAL IVPUSH SCH (09:43)
[2018-06-30] MEDS: levETIRAcetam 500 MG/5 ML INJECTION VIAL IVPB SCH ×2 (09:48→21:12)
[2018-06-30] MEDS: NIFEdipine E.R. 90 MG TABLET (FP) PO SCH (09:53)
--- NOTE | 2018-06-30 10:22 | PN ---
Progress Note, Physician History of Present Illness: Pain controlled post-craniotomy and tumor resection. No events on telemetry. Remains off labetolol gtt, denies headache, chest pain, dyspnea, palpitations. - Current Medication List Current Medications: Active Medications Acetaminophen (Ofirmev Injection -) 1,000 mg IVPB Q6H PRN PRN Reason: PAIN LEVEL 7 - 10 Last Admin: 06/28/18 13:26 Dose: 1,000 mg Acetaminophen/Codeine Phosphate (Tylenol # 3 -) 1 tab PO Q4H PRN PRN Reason: PAIN LEVEL 1-5 Last Admin: 06/28/18 20:50 Dose: 1 tab Dexamethasone Sodium Phosphate (Decadron Injection -) 4 mg IVPUSH Q6H-IV [facility] Last Admin: 06/30/18 09:47 Dose: 4 mg Docusate Sodium (Colace -) 100 mg PO TID [facility] Last Admin: 06/30/18 06:07 Dose: 100 mg Fentanyl (Sublimaze Injection -) 50 mcg IVPUSH [id number] PRN PRN Reason: PAIN-PACU ORDER X 4 DOSES ONLY Heparin Sodium (Porcine) (Heparin -) 5,000 unit SQ TID [facility] Last Admin: 06/30/18 06:06 Dose: 5,000 unit Labetalol HCl 1,000 mg/ Sodium (Chloride) 1,000 mls @ 120 mls/hr IV TITR [facility]; Protocol Last Admin: 06/29/18 20:47 Dose: Not Given Levetiracetam (Keppra Injection -) 500 mg IVPB BID [facility] Last Admin: 06/30/18 09:48 Dose: 500 mg Losartan Potassium (Cozaar -) 100 mg PO [facility] Last Admin: 06/29/18 20:59 Dose: 100 mg Metoprolol Succinate (Toprol Xl -) 100 mg PO HS [facility] Last Admin: 06/29/18 20:59 Dose: 100 mg Mupirocin (Bactroban Ointment (For Decolonization) -) 1 applic NS BID [facility] Stop: 07/02/18 21:59 Last Admin: 06/29/18 20:59 Dose: 1 applic Nifedipine (Procardia Xl -) 90 mg PO DAILY [facility] Last Admin: 06/30/18 09:53 Dose: 90 mg Pantoprazole Sodium (Protonix Iv) 40 mg IVPUSH DAILY [facility] Last Admin: 06/30/18 09:43 Dose: 40 mg Promethazine HCl (Phenergan Injection -) 12.5 mg IVPUSH Q6H PRN PRN Reason: NAUSEA-FOR RESCUE AFTER 15 MIN - Objective Vital Signs: Vital Signs Temperature 99.0 F 06/30/18 06:00 Pulse Rate 72 06/30/18 08:00 Respiratory Rate 16 06/30/18 08:00 Blood Pressure 141/65 06/30/18 08:00 O2 Sat by Pulse Oximetry (%) 94 L 06/30/18 09:00 Constitutional: Yes: No Distress, Calm Neck: Yes: Supple Cardiovascular: Yes: Regular Rate and Rhythm Respiratory: Yes: Regular, CTA Bilaterally Gastrointestinal: Yes: Normal Bowel Sounds, Soft Edema: No Labs: CBC, BMP 06/28/18 05:30 06/28/18 05:30 INR, PTT INR 1.02 (0.83-1.09) 06/27/18 05:30 Problem List - Problems (1) Hypertension Code(s): I10 - ESSENTIAL (PRIMARY) HYPERTENSION Qualifiers: Hypertension type: essential hypertension Qualified Code(s): I10 - Essential (primary) hypertension (2) Brain mass Code(s): G93.9 - DISORDER OF BRAIN, UNSPECIFIED (3) Breast cancer, left breast Code(s): C50.912 - MALIGNANT NEOPLASM OF UNSPECIFIED SITE OF LEFT FEMALE BREAST Qualifiers: Breast location: upper outer quadrant of breast (4) Status post craniotomy Code(s): Z98.890 - OTHER SPECIFIED POSTPROCEDURAL STATES Assessment/Plan 1. POD#3 Right temporal craniotomy with excision of brain tumor 2. h/o Breast Ca s/p resection/chemo/RT 3. HTN with improved control P:1. Wean decadron with GI protection, empiric antiepileptics 2. Weaned off labetolol gtt 3. Continue Losartan 100mg PO HS; Metoprolol succinate 100mg qd, Nifedipine XL 90mg qd. 4. DVT and GI prophylaxis, transfer to non-telemetry floor care
[2018-06-30 10:58] LABS: BASO % 0.3 % (0-2.0); HEMATOCRIT 35.4 % (32.4-45.2); HEMOGLOBIN 12.3 GM/dL (10.7-15.3); LYMPH % 11.4 % (8-40); MCH 32.3 pg (25.7-33.7); MCHC 34.8 g/dl (32.0-36.0); MEAN CELL VOLUME 92.8 fl (80-96); MEAN PLT VOLUME 7.6 fl (7.5-11.1); MONO % 5.9 % (3.8-10.2); NEUT % 82.4 % (42.8-82.8); PLATELET COUNT 362 K/MM3 (134-434); RBC 3.81 M/mm3 (3.60-5.2); WHITE BLOOD COUNT 11.5 K/mm3 (4.0-10.0)
[2018-06-30 11:23] LABS: ALBUMIN 3.2 g/dl (3.4-5.0); ALK PHOS 77 U/L (45-117); ANION GAP 10 MMOL/L (8-16); BILIRUBIN,TOTAL 0.4 mg/dL (0.2-1); BLOOD UREA NITROGEN 20 mg/dL (7-18); CALCIUM 8.1 mg/dL (8.5-10.1); CHLORIDE 101 mmol/L (98-107); CO2 25 mmol/L (21-32); CREATININE 0.8 mg/dL (0.55-1.3); GLUCOSE,RANDOM 172 mg/dL (74-106); MAGNESIUM 2.3 mg/dL (1.8-2.4); PHOSPHOROUS 3.3 mg/dL (2.5-4.9); POTASSIUM 3.4 mmol/L (3.5-5.1); SGOT/AST 36 U/L (15-37); SGPT/ALT 56 U/L (13-61); SODIUM 136 mmol/L (136-145); TOT PROT 7.5 g/dl (6.4-8.2)
--- NOTE | 2018-06-30 12:15 | PN ---
Teaching Attending Note Name of Resident: Courtney Collins ATTENDING PHYSICIAN STATEMENT I saw and evaluated the patient. I reviewed the resident's note and discussed the case with the resident. I agree with the resident's findings and plan as documented. SUBJECTIVE: Patient seen and examined in the ICU. Denies headache, nausea or vomiting. No CP or SOB. OBJECTIVE: Intake & Output 06/28/18 06/29/18 06/29/18 06/30/18 00:59 00:59 23:59 23:59 Intake Total 340 Output Total 900 Balance -560 Weight 185 lb 4.8 oz Last Vital Signs Temp Pulse Resp BP Pulse Ox 98.9 F 73 15 114/61 94 L 06/30/18 10:00 06/30/18 12:00 06/30/18 12:00 06/30/18 12:00 06/30/18 09:00 Active Medications Acetaminophen (Ofirmev Injection -) 1,000 mg IVPB Q6H PRN PRN Reason: PAIN LEVEL 7 - 10 Last Admin: 06/28/18 13:26 Dose: 1,000 mg Acetaminophen/Codeine Phosphate (Tylenol # 3 -) 1 tab PO Q4H PRN PRN Reason: PAIN LEVEL 1-5 Last Admin: 06/28/18 20:50 Dose: 1 tab Dexamethasone Sodium Phosphate (Decadron Injection -) 4 mg IVPUSH Q6H-IV [facility] Last Admin: 06/30/18 09:47 Dose: 4 mg Docusate Sodium (Colace -) 100 mg PO TID [facility] Last Admin: 06/30/18 06:07 Dose: 100 mg Fentanyl (Sublimaze Injection -) 50 mcg IVPUSH [id number] PRN PRN Reason: PAIN-PACU ORDER X 4 DOSES ONLY Heparin Sodium (Porcine) (Heparin -) 5,000 unit SQ TID [facility] Last Admin: 06/30/18 06:06 Dose: 5,000 unit Labetalol HCl 1,000 mg/ Sodium (Chloride) 1,000 mls @ 120 mls/hr IV TITR [facility]; Protocol Last Admin: 06/29/18 20:47 Dose: Not Given Levetiracetam (Keppra Injection -) 500 mg IVPB BID [facility] Last Admin: 06/30/18 09:48 Dose: 500 mg Losartan Potassium (Cozaar -) 100 mg PO HS [facility] Last Admin: 06/29/18 20:59 Dose: 100 mg Metoprolol Succinate (Toprol Xl -) 100 mg PO HS [facility] Last Admin: 06/29/18 20:59 Dose: 100 mg Mupirocin (Bactroban Ointment (For Decolonization) -) 1 applic NS BID [facility] Stop: 07/02/18 21:59 Last Admin: 06/29/18 20:59 Dose: 1 applic Nifedipine (Procardia Xl -) 90 mg PO DAILY [facility] Last Admin: 06/30/18 09:53 Dose: 90 mg Pantoprazole Sodium (Protonix Iv) 40 mg IVPUSH DAILY [facility] Last Admin: 06/30/18 09:43 Dose: 40 mg Promethazine HCl (Phenergan Injection -) 12.5 mg IVPUSH Q6H PRN PRN Reason: NAUSEA-FOR RESCUE AFTER 15 MIN Gen: NAD at rest Heart: RRR Lung: decreased breath sounds at the bases Abd: soft, nontender Ext: no edema Laboratory Results - last 24 hr 06/30/18 06/30/18 10:45 10:45 WBC 11.5 H RBC 3.81 Hgb 12.3 Hct 35.4 MCV 92.8 MCH 32.3 MCHC 34.8 RDW 15.0 Plt Count 362 MPV 7.6 Absolute Neuts (auto) 9.5 H Neutrophils % 82.4 Lymphocytes % 11.4 Monocytes % 5.9 D Eosinophils % 0.0 Basophils % 0.3 Nucleated RBC % 0 Sodium 136 Potassium 3.4 L Chloride 101 Carbon Dioxide 25 Anion Gap 10 BUN 20 H Creatinine 0.8 Creat Clearance w eGFR > 60 Random Glucose 172 H Calcium 8.1 L Phosphorus 3.3 Magnesium 2.3 Total Bilirubin 0.4 AST 36 ALT 56 Alkaline Phosphatase 77 Total Protein 7.5 Albumin 3.2 L ASSESSMENT AND PLAN: Brain Mass Cerebral Edema h/o Breast Ca s/p resection/chemo/RT HTN - Wean decadron - AEDs - DVT prophylaxis - Floor Dr Gray
[2018-06-30] MEDS ORDERED: POTASSIUM CHLORIDE TABS 20 MEQ TABLET.ER (FP) PO ONE (13:16)
[2018-06-30 14:30] LABS: ANISOCYTOSIS 1+; MACROCYTOSIS 1+; PLATELET ESTIMATE NORMAL
--- NOTE | 2018-06-30 14:52 | PN ---
Physical Exam: SUBJECTIVE: Patient seen and examined at bedside. No acute events overnight. Patient reports feeling well this morning with minimal headache. Denies changes in vision, nausea, vomiting, dizziness, chest pain, SOB, palpitations, abdominal pain, urinary symptoms. Patient was seen by physical therapy today. Noted absence of left peripheral vision. Consulted with Dr. Vázquez, noted pre-operatively. Recommends outpatient rehab. OBJECTIVE: Vital Signs Period Temp Pulse Resp BP Sys/Gilman Pulse Ox Last 24 Hr 98.4 F-99.2 F 67-79 14-18 114-156/59-82 94-95 GENERAL: The patient is awake, alert, and fully oriented, in no acute distress. HEAD: Normal with no signs of trauma. EYES: PERRLA, extraocular movements intact, sclera anicteric, conjunctiva clear. ENT: Ears normal, nares patent, oropharynx clear without exudates, moist mucous membranes. NECK: Trachea midline, full range of motion, supple. LUNGS: Breath sounds equal, clear to auscultation bilaterally. HEART: Regular rate and rhythm, S1, S2 without murmur, rub or gallop. ABDOMEN: Soft, nontender, nondistended, normoactive bowel sounds. EXTREMITIES: 2+ pulses, warm, well-perfused, no edema. NEUROLOGICAL: AAOx3, Cranial nerves II through XII grossly intact. Sensation intact, motor 5/5. Normal speech, gait not observed. PSYCH: Normal mood, normal affect. SKIN: Warm, dry, normal turgor, no rashes or lesions noted Laboratory Results - last 24 hr 06/30/18 06/30/18 10:45 10:45 WBC 11.5 H RBC 3.81 Hgb 12.3 Hct 35.4 MCV 92.8 MCH 32.3 MCHC 34.8 RDW 15.0 Plt Count 362 MPV 7.6 Absolute Neuts (auto) 9.5 H Neutrophils % 82.4 Lymphocytes % 11.4 Monocytes % 5.9 D Eosinophils % 0.0 Basophils % 0.3 Nucleated RBC % 0 Sodium 136 Potassium 3.4 L Chloride 101 Carbon Dioxide 25 Anion Gap 10 BUN 20 H Creatinine 0.8 Creat Clearance w eGFR > 60 Random Glucose 172 H Calcium 8.1 L Phosphorus 3.3 Magnesium 2.3 Total Bilirubin 0.4 AST 36 ALT 56 Alkaline Phosphatase 77 Total Protein 7.5 Albumin 3.2 L Active Medications Generic Name Dose Route Start Last Admin Trade Name Freq PRN Reason Stop Dose Admin Acetaminophen 1,000 mg 06/27/18 22:23 06/28/18 13:26 Ofirmev Injection - IVPB 1,000 mg Q6H PRN Administration PAIN LEVEL 7 - 10 Acetaminophen/Codeine Phosphate 1 tab 06/27/18 18:22 06/28/18 20:50 Tylenol # 3 - PO 1 tab Q4H PRN Administration PAIN LEVEL 1-5 Dexamethasone Sodium Phosphate 4 mg 06/28/18 09:00 06/30/18 09:47 Decadron Injection - IVPUSH 4 mg Q6H-IV [facility] Administration Docusate Sodium 100 mg 06/27/18 22:00 06/30/18 06:07 Colace - PO 100 mg TID [facility] Administration Fentanyl 50 mcg 06/27/18 19:04 Sublimaze Injection - IVPUSH [id number] PRN PAIN-PACU ORDER X 4 DOSES ONLY Heparin Sodium (Porcine) 5,000 unit 06/28/18 08:00 06/30/18 06:06 Heparin - SQ 5,000 unit TID [facility] Administration Labetalol HCl 1,000 mg/ Sodium 1,000 mls @ 120 mls/hr 06/27/18 18:45 20:47 Chloride IV Not Given TITR [facility] Protocol 2 MG/MIN Levetiracetam 500 mg 06/28/18 10:00 06/30/18 09:48 Keppra Injection - IVPB 500 mg BID [facility] Administration Losartan Potassium 100 mg 06/28/18 22:00 06/29/18 20:59 Cozaar - PO 100 mg HS [facility] Administration Metoprolol Succinate 100 mg 06/28/18 22:00 06/29/18 20:59 Toprol Xl - PO 100 mg HS [facility] Administration Mupirocin 1 applic 06/27/18 22:00 06/29/18 20:59 Bactroban Ointment (For Decolonization) - NS 07/02/18 21:59 1 applic BID [facility] Administration Nifedipine 90 mg 06/28/18 10:00 06/30/18 09:53 Procardia Xl - PO 90 mg DAILY [facility] Administration Pantoprazole Sodium 40 mg 06/28/18 10:00 06/30/18 09:43 Protonix Iv IVPUSH 40 mg DAILY [facility] Administration Promethazine HCl 12.5 mg 06/27/18 19:04 Phenergan Injection - IVPUSH Q6H PRN NAUSEA-FOR RESCUE AFTER 15 MIN ASSESSMENT/PLAN: Patient is a 53 year old female with past medical history of Hypertension and right-sided breast cancer s/p resection, chemotherapy and radiation therapy ( 2015), presented with 1 week history of severe, 10/10, intermittent headache. Brain MRI showed a large mass with leftward midline shift. #Neurology 1) Headache, likely 2/2 brain mass with leftward midline shift -Brain MRI: Large mass within the inferior thalamic region. Leftward midline shift. Mass effect and edema. -s/p Right temporal craniotomy POD 3 -Neuro checks q4h. -Neurosurgery (Dr. Vázquez) consulted. -Continue IV Decadron 4 mg Q6H [facility]IG[facility]ALIA, will taper down -Continue IV Protonix 40mg Daily -Continue IV Keppra 500 mg IV BID for seizure prophylaxis for 2 more weeks after discharge. -Regular diet -Physical therapy evaluation: Recommends patient will benefit from short term rehab. -Dr. Apodaca aware. #Cardiology 1)Hypertension -Continue home medications: Losartan 100mg, Procardia XL 70mg, Metoprolol 100mg -Lasix 40mg held. -Cardiology (Dr. Keenan) consulted for cardiac clearance. #Nephrology 1) Hypokalemia -K-dur given -will continue to monitor #FEN -Not on any standing fluids -Routine bmp monitoring, replete PRN -Regular diet #Prophylaxis 1)DVT - SCDs, both legs 2)GI- Protonix 40mg IV daily #Disposition -full code -for transfer to med-surg Visit type - Emergency Visit Emergency Visit: Yes ED Registration Date: 06/25/18 Care time: The patient presented to the Emergency Department on the above date and was hospitalized for further evaluation of their emergent condition. - New Patient This patient is new to me today: Yes Date on this admission: 06/30/18 - Critical Care Critical Care patient: Yes Total Critical Care Time (in minutes): 40 Critical Care Statement: The care of this patient involved high complexity decision making to prevent further life threatening deterioration of the patient 's condition and/or to evaluate & treat vital organ system(s) failure or risk of failure.
[2018-06-30] MEDS: MUPIROCIN 2% TOPICAL OINTMENT FOR DECOLONIZATION NS SCH (15:58)
[2018-06-30] MEDS ORDERED: POLYETHYLENE GLYCOL 3350 119 GM BTL PO ONE (18:03)
[2018-06-30] MEDS ORDERED: ACETAMINOPHEN WITH CODEINE 300MG/30MG TABLET PO PRN (18:26)
[2018-06-30] MEDS: LOSARTAN POTASSIUM 50 MG TABLET (FP) PO SCH (22:38)
[2018-07-01] MEDS: DEXAMETHASONE SOD PHOSPHATE 4 MG/1 ML VIAL IVPUSH SCH ×4 (02:43→20:00)
[2018-07-01] MEDS: DOCUSATE SODIUM 100 MG CAPSULE (FP) PO SCH ×3 (05:44→21:44)
[2018-07-01] MEDS: HEPARIN NA (PORCINE) 5,000 UNITS/ML 1ML VIAL SQ SCH ×3 (05:44→21:44)
--- NOTE | 2018-07-01 08:40 | PN ---
Progress Note (short form) - Note Progress Note: POD 4 Pt seen and examined. Sitting at edge of bed with breakfast on tray. Appears dazed. Able to answer questions appropriately. Reports she was oob in the bathroom this morning "washing up". Eating/drinking, voiding without issue. Per RN pt requires assist of 2 to ambulate. Denies cp, sob, n/v/d, headache, dizziness, motor/sensory deficits. Vital Signs Temp 99.0 F 07/01/18 06:00 Pulse 67 07/01/18 06:00 Resp 18 07/01/18 06:00 BP 131/77 07/01/18 06:00 Pulse Ox 96 06/30/18 20:35 Intake & Output 06/30/18 06/30/18 07/01/18 11:59 23:59 11:59 Intake Total 340 100 Output Total 900 Balance -560 100 Weight 185 lb 4.8 oz 183 lb 6 oz Intake: IVPB 100 100 Oral 240 Output: Urine 900 Void 900 Other: Voiding Method Toilet Toilet # Unmeasured Voids Void 2 Bowel Movement No No Weight Measurement Method Built in Bedscale Standing Scale CBC, BMP 06/30/18 10:45 06/30/18 10:45 Gen: awake, appears dazed. Oriented x 3. Head: Dressing c/d/i. No ecchymosis or palpable hematoma. Neuro: Answers questions appropriately, follows commands. LUE biceps/triceps 5/5 , RUE biceps 5/5 triceps 4/5, mechanical maintenance strength equal and strong b/l. B/L LE's dorsiflexion/plantar flexion 5/5, knee ext/flexion 5/5. SILT throughout b/l ue's /le's 53 y/o F w/ PMHx htn, right-sided breast cancer s/p resection, chemotherapy and radiation therapy (2015), now admitted on 06/25 with severe, 10/10, intermittent headaches, Brain MRI + for large mass with leftward midline shift, now POD 4, s/p Right temporal craniotomy with excision of brain tumor. F/u pathology GI/DVT Prophylaxis Physical Therapy and Rehab planning (strongly recommend rehab [facility] if possible- pt not ambulating well with PT, reports no one home to stay with her around the clock)-d/w granite worker Yolande Dry dressing over incision, change prn Wean steroids DVT prophylaxis with b/l scds, continue heparin 5000units sq tid Continue Keppra 500mg bid Bowel regimen Continue Neurovascular checks d/w attending, Dr Arora who agrees with plan
--- NOTE | 2018-07-01 09:25 | PN ---
Progress Note, Physician Chief Complaint: Feels better History of Present Illness: More awake and walking - Current Medication List Current Medications: Active Medications Acetaminophen/Codeine Phosphate (Tylenol # 3 -) 1 tab PO Q4H PRN PRN Reason: PAIN LEVEL 1-5 Dexamethasone Sodium Phosphate (Decadron Injection -) 4 mg IVPUSH Q6H-IV [facility] Last Admin: 07/01/18 02:43 Dose: 4 mg Docusate Sodium (Colace -) 100 mg PO TID [facility] Last Admin: 07/01/18 05:44 Dose: 100 mg Heparin Sodium (Porcine) (Heparin -) 5,000 unit SQ TID [facility] Last Admin: 07/01/18 05:44 Dose: 5,000 unit Levetiracetam (Keppra Injection -) 500 mg IVPB BID [facility] Last Admin: 06/30/18 21:12 Dose: 500 mg Losartan Potassium (Cozaar -) 100 mg PO HS [facility] Last Admin: 06/30/18 22:38 Dose: Not Given Metoprolol Succinate (Toprol Xl -) 100 mg PO [facility] Last Admin: 06/30/18 22:37 Dose: 100 mg Nifedipine (Procardia Xl -) 90 mg PO DAILY [facility] Pantoprazole Sodium (Protonix Iv) 40 mg IVPUSH DAILY [facility] - Objective Vital Signs: Vital Signs Temperature 99.0 F 07/01/18 06:00 Pulse Rate 67 07/01/18 06:00 Respiratory Rate 18 07/01/18 06:00 Blood Pressure 131/77 07/01/18 06:00 O2 Sat by Pulse Oximetry (%) 96 06/30/18 20:35 Constitutional: Yes: No Distress Eyes: Yes: WNL HENT: Yes: WNL Neck: Yes: WNL Cardiovascular: Yes: WNL Respiratory: Yes: WNL Gastrointestinal: Yes: Normal Bowel Sounds ...Rectal Exam: Yes: Deferred Genitourinary: Yes: WNL Edema: No Neurological: Yes: Alert Psychiatric: Yes: WNL Labs: CBC, BMP 06/30/18 10:45 06/30/18 10:45 INR, PTT INR 1.02 (0.83-1.09) 06/27/18 05:30 Assessment/Plan Possible DC home in AM Reduce steroids
[2018-07-01] MEDS ORDERED: PT OWN MED DRAWER 7, Y5N ONE (09:26)
[2018-07-01] MEDS: NIFEdipine E.R. 90 MG TABLET (FP) PO SCH (09:32)
[2018-07-01] MEDS: levETIRAcetam 500 MG/5 ML INJECTION VIAL IVPB SCH ×2 (09:32→21:45)
[2018-07-01] MEDS ORDERED: ONDANSETRON 4 MG/2 ML VIAL IVPUSH PRN (09:52)
[2018-07-01] MEDS: PANTOPRAZOLE SODIUM 40 MG VIAL IVPUSH SCH (10:00)
[2018-07-01] MEDS ORDERED: DEXAMETHASONE SOD PHOSPHATE 4 MG/1 ML VIAL IVPUSH SCH (10:00)
--- NOTE | 2018-07-01 13:57 | PN ---
Progress Note, Physician Chief Complaint: Events noted Episode of nausea and vomiting this morning History of Present Illness: Patient was seen and examined. Awake and alert. Chart was reviewed Denies chest pain, SOB or palpitations - Current Medication List Current Medications: Active Medications Acetaminophen/Codeine Phosphate (Tylenol # 3 -) 1 tab PO Q4H PRN PRN Reason: PAIN LEVEL 1-5 Dexamethasone Sodium Phosphate (Decadron Injection -) 2 mg IVPUSH Q6H-IV [facility] Docusate Sodium (Colace -) 100 mg PO TID [facility] Last Admin: 07/01/18 05:44 Dose: 100 mg Heparin Sodium (Porcine) (Heparin -) 5,000 unit SQ TID [facility] Last Admin: 07/01/18 05:44 Dose: 5,000 unit Levetiracetam (Keppra Injection -) 500 mg IVPB BID [facility] Last Admin: 07/01/18 09:32 Dose: 500 mg Losartan Potassium (Cozaar -) 100 mg PO [facility] Last Admin: 06/30/18 22:38 Dose: Not Given Metoprolol Succinate (Toprol Xl -) 100 mg PO [facility] Last Admin: 06/30/18 22:37 Dose: 100 mg Nifedipine (Procardia Xl -) 90 mg PO DAILY [facility] Last Admin: 07/01/18 09:32 Dose: 90 mg Ondansetron HCl (Zofran Injection) 4 mg IVPUSH Q6H PRN PRN Reason: NAUSEA Last Admin: 07/01/18 12:07 Dose: 4 mg Pantoprazole Sodium (Protonix Iv) 40 mg IVPUSH DAILY [facility] - Objective Vital Signs: Vital Signs Temperature 98.4 F 07/01/18 10:00 Pulse Rate 62 07/01/18 10:00 Respiratory Rate 18 07/01/18 10:00 Blood Pressure 130/66 07/01/18 10:00 O2 Sat by Pulse Oximetry (%) 96 06/30/18 20:35 HENT: Yes: Atraumatic Neck: Yes: Supple Cardiovascular: Yes: Regular Rate and Rhythm, S1, S2 Respiratory: Yes: CTA Bilaterally Gastrointestinal: Yes: Normal Bowel Sounds, Soft. No: Tenderness Edema: No Labs: CBC, BMP 06/30/18 10:45 06/30/18 10:45 Problem List - Problems (1) Brain mass Code(s): G93.9 - DISORDER OF BRAIN, UNSPECIFIED (2) Hypertension Code(s): I10 - ESSENTIAL (PRIMARY) HYPERTENSION Qualifiers: Hypertension type: essential hypertension Qualified Code(s): I10 - Essential (primary) hypertension (3) Status post craniotomy Code(s): Z98.890 - OTHER SPECIFIED POSTPROCEDURAL STATES (4) Breast cancer, left breast Code(s): C50.912 - MALIGNANT NEOPLASM OF UNSPECIFIED SITE OF LEFT FEMALE BREAST Qualifiers: Breast location: upper outer quadrant of breast Assessment/Plan 1. POD#4 Right temporal craniotomy with excision of brain tumor 2. History of Breast Cancer s/p resection/chemo/RT 3. HTN PLAN: 1. Continue treatment as per Neurosurgery 2. Monitor BP closely 3. Continue Losartan 100mg PO HS, Metoprolol succinate 100mg qd and Nifedipine XL 90mg qd as tolerated 4. DVT and GI prophylaxis Further plans are to follow Kulwant Wallace MD
[2018-07-01] MEDS: LOSARTAN POTASSIUM 50 MG TABLET (FP) PO SCH (21:44)
[2018-07-02] MEDS: DEXAMETHASONE SOD PHOSPHATE 4 MG/1 ML VIAL IVPUSH SCH ×2 (02:19→09:39)
[2018-07-02] MEDS: DOCUSATE SODIUM 100 MG CAPSULE (FP) PO SCH ×3 (05:20→21:41)
[2018-07-02] MEDS: HEPARIN NA (PORCINE) 5,000 UNITS/ML 1ML VIAL SQ SCH ×3 (05:20→21:41)
[2018-07-02] MEDS ORDERED: PT OWN MED DRAWER 7, Y5N ONE (09:08)
--- NOTE | 2018-07-02 09:12 | PN ---
Progress Note, Physician Chief Complaint: Feels better History of Present Illness: S/P craniotomy and resection of tumor - Current Medication List Current Medications: Active Medications Acetaminophen/Codeine Phosphate (Tylenol # 3 -) 1 tab PO Q4H PRN PRN Reason: PAIN LEVEL 1-5 Dexamethasone Sodium Phosphate (Decadron Injection -) 2 mg IVPUSH Q6H-IV [facility] Last Admin: 07/02/18 02:19 Dose: 2 mg Docusate Sodium (Colace -) 100 mg PO TID [facility] Last Admin: 07/02/18 05:20 Dose: 100 mg Heparin Sodium (Porcine) (Heparin -) 5,000 unit SQ TID [facility] Last Admin: 07/02/18 05:20 Dose: 5,000 unit Levetiracetam (Keppra Injection -) 500 mg IVPB BID [facility] Last Admin: 07/01/18 21:45 Dose: 500 mg Losartan Potassium (Cozaar -) 100 mg PO [facility] Last Admin: 07/01/18 21:44 Dose: 100 mg Metoprolol Succinate (Toprol Xl -) 100 mg PO [facility] Last Admin: 07/01/18 21:44 Dose: 100 mg Nifedipine (Procardia Xl -) 90 mg PO DAILY [facility] Last Admin: 07/01/18 09:32 Dose: 90 mg Ondansetron HCl (Zofran Injection) 4 mg IVPUSH Q6H PRN PRN Reason: NAUSEA Last Admin: 07/01/18 12:07 Dose: 4 mg Pantoprazole Sodium (Protonix Iv) 40 mg IVPUSH DAILY [facility] Last Admin: 07/01/18 10:00 Dose: 40 mg - Objective Vital Signs: Vital Signs Temperature 99.9 F H 07/02/18 05:50 Pulse Rate 76 07/02/18 05:50 Respiratory Rate 20 07/02/18 05:50 Blood Pressure 115/64 07/02/18 05:50 O2 Sat by Pulse Oximetry (%) 96 07/01/18 22:00 Constitutional: Yes: No Distress Eyes: Yes: WNL HENT: Yes: WNL Neck: Yes: WNL Cardiovascular: Yes: WNL Respiratory: Yes: WNL Gastrointestinal: Yes: WNL ...Rectal Exam: Yes: WNL Genitourinary: Yes: WNL Breast(s): Yes: WNL Musculoskeletal: Yes: WNL Wound/Incision: Yes: Clean/Dry ...Motor Strength: WNL Labs: CBC, BMP 06/30/18 10:45 06/30/18 10:45 INR, PTT INR 1.02 (0.83-1.09) 06/27/18 05:30 Assessment/Plan DC home
[2018-07-02] MEDS: PANTOPRAZOLE SODIUM 40 MG VIAL IVPUSH SCH (09:37)
[2018-07-02] MEDS: NIFEdipine E.R. 90 MG TABLET (FP) PO SCH (09:39)
[2018-07-02] MEDS: predniSONE 20 MG TABLET (UD) PO SCH ×2 (09:54→21:40)
[2018-07-02] MEDS: levETIRAcetam 500 MG TABLET (FP) PO SCH ×2 (09:54→21:41)
[2018-07-02] MEDS: LOSARTAN POTASSIUM 50 MG TABLET (FP) PO SCH (21:41)
[2018-07-03] MEDS: DOCUSATE SODIUM 100 MG CAPSULE (FP) PO SCH ×2 (06:41→13:49)
[2018-07-03] MEDS: HEPARIN NA (PORCINE) 5,000 UNITS/ML 1ML VIAL SQ SCH ×2 (06:41→13:49)
--- NOTE | 2018-07-03 09:12 | PN ---
Progress Note, Physician Chief Complaint: feels better History of Present Illness: Patient needs short term rehab Kenneth evaluated her yesterday,may go there today - Current Medication List Current Medications: Active Medications Acetaminophen/Codeine Phosphate (Tylenol # 3 -) 1 tab PO Q4H PRN PRN Reason: PAIN LEVEL 1-5 Docusate Sodium (Colace -) 100 mg PO TID [facility] Last Admin: 07/03/18 06:41 Dose: 100 mg Heparin Sodium (Porcine) (Heparin -) 5,000 unit SQ TID [facility] Last Admin: 07/03/18 06:41 Dose: 5,000 unit Levetiracetam (Keppra -) 500 mg PO BID [facility] Last Admin: 07/02/18 21:41 Dose: 500 mg Losartan Potassium (Cozaar -) 100 mg PO [facility] Last Admin: 07/02/18 21:41 Dose: 100 mg Metoprolol Succinate (Toprol Xl -) 100 mg PO [facility] Last Admin: 07/02/18 21:41 Dose: 100 mg Nifedipine (Procardia Xl -) 90 mg PO DAILY [facility] Last Admin: 07/02/18 09:39 Dose: 90 mg Ondansetron HCl (Zofran Injection) 4 mg IVPUSH Q6H PRN PRN Reason: NAUSEA Last Admin: 07/01/18 12:07 Dose: 4 mg Pantoprazole Sodium (Protonix Iv) 40 mg IVPUSH DAILY [facility] Last Admin: 07/02/18 09:37 Dose: 40 mg Prednisone (Deltasone -) 40 mg PO BID [facility] Last Admin: 07/02/18 21:40 Dose: 40 mg - Objective Vital Signs: Vital Signs Temperature 98.2 F 07/03/18 06:00 Pulse Rate 73 07/03/18 06:00 Respiratory Rate 18 07/03/18 09:00 Blood Pressure 148/72 07/03/18 06:00 O2 Sat by Pulse Oximetry (%) 96 07/03/18 09:00 Constitutional: Yes: No Distress Eyes: Yes: WNL HENT: Yes: WNL Neck: Yes: WNL Cardiovascular: Yes: WNL Respiratory: Yes: WNL Gastrointestinal: Yes: WNL ...Rectal Exam: Yes: Deferred Edema: No Wound/Incision: Yes: Clean/Dry Neurological: Yes: Alert ...Motor Strength: WNL Psychiatric: Yes: Alert Labs: CBC, BMP 06/30/18 10:45 06/30/18 10:45 INR, PTT INR 1.02 (0.83-1.09) 06/27/18 05:30 Assessment/Plan cotedmar marquis trt
[2018-07-03] MEDS ORDERED: PT OWN MED DRAWER 7, Y5N ONE (09:41)
[2018-07-03] MEDS: NIFEdipine E.R. 90 MG TABLET (FP) PO SCH (10:13)
[2018-07-03] MEDS: PANTOPRAZOLE SODIUM 40 MG VIAL IVPUSH SCH (10:13)
[2018-07-03] MEDS: levETIRAcetam 500 MG TABLET (FP) PO SCH (10:13)
[2018-07-03] MEDS: predniSONE 20 MG TABLET (UD) PO SCH (10:13)
--- NOTE | 2018-07-03 10:17 | PATH ---
Surgical Pathology Report Patient Name: IMAN JIMÉNEZ [facility]. Rec. #: [id number] /Age/Gender: 1965 (Age: 53) / F Account: [id number] Location: [address] [place] [address]/[facility] Taken: 06/27/2018 Received: 06/27/2018 Reported: 07/03/2018 Physicians: Kelli Campbell M.D. Specimen(s) Received A: BRAIN TUMOR FS B: BRAIN TUMOR Clinical History Brain tumor Intraoperative Consult Diagnosis Mass of brain: Malignant cells present. High grade neoplasm. Dr. Hammond 06/27/18. Final Diagnosis A. BRAIN, MASS, BIOPSY (FS): POORLY DIFFERENTIATED CARCINOMA. SEE COMMENT. B. BRAIN, MASS, RIGHT, CRANIOTOMY: POORLY DIFFERENTIATED CARCINOMA. SEE COMMENT. Comment: Histologic sections show sheets of pleomorphic malignant epithelial cells with vacuolated cytoplasm, coarse chromatin, and variably prominent nucleoli. Brisk mitosis and extensive necrosis are present. Immunohistochemical stains performed at [place], [place] ([id number]) and interpreted at [facility] show the tumor is positive for AE1/3, CK7, CHRISTIE, MAJOR-3, GCDFP-15, while negative for vimentin, GFAP, ER, and KS. Rare cells are positive for Mammaglobin. Proliferative marker, Ki-67 is high. Overall histomorphology and immunophenotype show a poorly differentiated carcinoma consistent with breast origin. History of metastatic breast cancer is noted. HER2 ([facility]) pending and will be reported separately. Case seen interdepartmentally. Electronically Signed Lubna Ramirez M.D. Gross Description A. Received fresh for immediate intraoperative consultation labeled "mass of brain" is a portion of red soft tissue measuring 0.5 cm in greatest dimension. Touch/squash preparation performed. The specimen is entirely submitted for frozen section analysis, FS1. B. Received in formalin labeled "brain tumor," is a 6.0 x 4.4 x 1.0 cm aggregate of abundant brantley, friable soft tissue fragments. The specimen is entirely submitted in 8 cassettes. KWS/06/27/2018 sulki/06/27/2018
[2018-07-03 11:36] VITALS: BMI 28.8
--- NOTE | 2018-07-03 13:38 | PN ---
Progress Note, Physician History of Present Illness: Pathology came back poorly differentiated carcinoma, denies headache, chest pain , dyspnea, palpitations. - Current Medication List Current Medications: Active Medications Acetaminophen/Codeine Phosphate (Tylenol # 3 -) 1 tab PO Q4H PRN PRN Reason: PAIN LEVEL 1-5 Docusate Sodium (Colace -) 100 mg PO TID [facility] Last Admin: 07/03/18 06:41 Dose: 100 mg Heparin Sodium (Porcine) (Heparin -) 5,000 unit SQ TID [facility] Last Admin: 07/03/18 06:41 Dose: 5,000 unit Levetiracetam (Keppra -) 500 mg PO BID [facility] Last Admin: 07/03/18 10:13 Dose: 500 mg Losartan Potassium (Cozaar -) 100 mg PO HS [facility] Last Admin: 07/02/18 21:41 Dose: 100 mg Metoprolol Succinate (Toprol Xl -) 100 mg PO HS [facility] Last Admin: 07/02/18 21:41 Dose: 100 mg Nifedipine (Procardia Xl -) 90 mg PO DAILY [facility] Last Admin: 07/03/18 10:13 Dose: 90 mg Ondansetron HCl (Zofran Injection) 4 mg IVPUSH Q6H PRN PRN Reason: NAUSEA Last Admin: 07/01/18 12:07 Dose: 4 mg Pantoprazole Sodium (Protonix Iv) 40 mg IVPUSH DAILY [facility] Last Admin: 07/03/18 10:13 Dose: 40 mg Prednisone (Deltasone -) 40 mg PO BID [facility] Last Admin: 07/03/18 10:13 Dose: 40 mg - Objective Vital Signs: Vital Signs Temperature 98.6 F 07/03/18 10:00 Pulse Rate 63 07/03/18 10:00 Respiratory Rate 18 07/03/18 10:00 Blood Pressure 127/75 07/03/18 10:00 O2 Sat by Pulse Oximetry (%) 96 07/03/18 09:00 Constitutional: Yes: No Distress, Calm Neck: Yes: Supple Cardiovascular: Yes: Regular Rate and Rhythm Respiratory: Yes: Regular, CTA Bilaterally Gastrointestinal: Yes: Normal Bowel Sounds, Soft Edema: No Labs: CBC, BMP 06/30/18 10:45 06/30/18 10:45 INR, PTT INR 1.02 (0.83-1.09) 06/27/18 05:30 Problem List - Problems (1) Hypertension Code(s): I10 - ESSENTIAL (PRIMARY) HYPERTENSION Qualifiers: Hypertension type: essential hypertension Qualified Code(s): I10 - Essential (primary) hypertension (2) Brain mass Code(s): G93.9 - DISORDER OF BRAIN, UNSPECIFIED (3) Breast cancer, left breast Code(s): C50.912 - MALIGNANT NEOPLASM OF UNSPECIFIED SITE OF LEFT FEMALE BREAST Qualifiers: Breast location: upper outer quadrant of breast (4) Status post craniotomy Code(s): Z98.890 - OTHER SPECIFIED POSTPROCEDURAL STATES Assessment/Plan 1. POD#6 Right temporal craniotomy with excision of brain tumor suspect metastasis 2. h/o Breast Ca s/p resection/chemo/RT 3. HTN with improved control P:1. Wean prednisone with GI protection, empiric antiepileptics 2. Continue Losartan 100mg PO HS; Metoprolol succinate 100mg qd, Nifedipine XL 90mg qd. 3. DVT and GI prophylaxis, d/c planning, needs to f/u with her ocnologist Dr. Sutherland at [facility], informed family of need fir continued oncology f/u and to provide Dr. Sutherland with pathology results
[2018-07-03 14:05] VITALS: BP 116/63; PULSE 72; TEMP 98.4
== END 2018-07-03 18:40 | disposition home or self-care (01) | DRG 27 ==
LOC: JER 10:55 → JERBED 15:18 → JICU 23:09 → J6S 06-30 18:55
PROVIDERS: ADMIT Internal Medicine; ATTEND Internal Medicine
PROC: 00B00ZX Excision of Brain, Open Approach, Diagnostic (ICD-10-PCS; principal; 2018-06-27 14:00)
DX: C79.31 Secondary malignant neoplasm of brain (principal); Z85.3 Personal history of malignant neoplasm of breast; I10 Essential (primary) hypertension; E87.6 Hypokalemia; I95.9 Hypotension, unspecified
CPT/HCPCS: 36415; 70450-TC; 70553-TC; 71045-TC-FY; 80048; 80053; 81003; 81015; 82550; 83036; 83735; 84100; 84443; 84484; 85025; 85027; 85610; 85730; 86850; 86900; 86901; 88307-TC; 88331-TC; 93005; 93010; 97116-GP; 97162-GP; 99285-25; J0131; J1644; J7030

== ENCOUNTER 2019-05-02 18:00 | Inpatient (IN) | payer OTHER ==
[2019-05-02] MEDS ORDERED: EPINEPHrine 1:10,000 (P-F SYR) 1 MG/10 ML DISP.SYRIN ONE (18:27)
[2019-05-02] MEDS ORDERED: LORazepam 2 MG/ML SDV VIAL ONE ×2 (18:38→21:36)
--- NOTE | 2019-05-02 18:48 | PDOC ---
History of Present Illness - General Chief Complaint: Cardiac Arrest Stated Complaint: CARDIAC ARREST Time Seen by Provider: 05/02/19 18:37 - History of Present Illness Initial Comments: 05/02/19 18:50 53 year old woman with a history of metastatic breast cancer to the brain LASHAWN who presents s/p cardiac arrest/ PEA and intubated. Per family the patient was found in her bed with face turned to the side and then began shaking. Upon EMS arrival the patient was tachypneic and unresponse, intubated with anca and etomidate, patient became hypotensive and coded. 2 rounds of resusc with epinephrine, rosc obtained. Patient in hospice at [facility] but full code Code Status: Full ROS - unable to obtain PE GENERAL: intubated HEAD: No signs of trauma, normocephalic, atraumatic EYES: PERRLA ENT: intubated LUNGS: clear to auscultation bilaterally HEART: tachycardic rate and rhythm, normal S1 and S2, no murmurs, rubs or gallops, peripheral pulses normal and equal bilaterally. ABDOMEN: Soft, nontender No guarding, no rebound. No masses EXTREMITIES : Normal inspection, No clubbing or cyanosis. NEUROLOGICAL: unresponsive to pain, does not blink to threat, does not follow commands SKIN: Warm, Dry, normal turgor, no rashes or lesions noted MDM ED Course: fingerstick 200s EKG: with ST elevation in lead I, aVL, V6, ST depressions in III, aVF, , sinus at 117bpm Cardiology consulted, as patient with mets to the brain, not a candidate for heparin or cath, recommend cooling, ASA and ICU repeat EKG: sinus tachycardia rate of 152bpm Hypothermia protocol initiated, propofol, and vecuronium with cooling measures keabiodun Sutherland (oncologist) called patient has triple negative breast cancer with unresectable mets to the brain labs significant for hypokalemia and elevated lactic acid KCl repletion plan for admission to ICU Discussed with ICU and Dr. Ochoa who accept patient Selena Donnelly, PGY2 Emergency Medicine Past History - Past Medical History Allergies/Adverse Reactions: Allergies Allergy/AdvReac Type Severity Reaction Status Date / Time No Known Drug Allergies Allergy Verified 05/02/19 18:11 Home Medications: Ambulatory Orders Losartan Potassium 100 mg PO HS 08/09/15 Nifedipine [Nifedipine ER] 90 mg PO DAILY 08/09/15 Butalb/Acetaminophen/Caffeine [Iaiejh-Uamaypfp-Knvn 50-325-40] 1 each PO TID PRN 06/25/18 Furosemide [Lasix -] 40 mg PO DAILY 06/25/18 Metoprolol Succinate 100 mg PO DAILY 06/25/18 Naphazoline HCl/Pheniramine [Visine-A Eye Drops] 15 ml OP ASDIR 06/25/18 Docusate Sodium [Colace -] 100 mg PO TID capsule 07/02/18 Pantoprazole Sodium [Protonix IV] 40 mg IVPUSH DAILY vial 07/02/18 Anemia: No Asthma: No Cancer: Yes (Left Breast DX 06/09) Cardiac Disorders: No CVA: No COPD: No CHF: No Dementia: No Diabetes: No GI Disorders: No Disorders: No HTN: Yes Hypercholesterolemia: No Liver Disease: No Seizures: No Thyroid Disease: No - Surgical History Abdominal Surgery: No Appendectomy: No Cardiac Surgery: No Cholecystectomy: No Lung Surgery: No Neurologic Surgery: No Orthopedic Surgery: No - Suicide/Smoking/Psychosocial Hx Smoking History: Unknown if ever smoked Have you smoked in the past 12 months: No Hx Alcohol Use: No Drug/Substance Use Hx: No Substance Use Type: None Hx Substance Use Treatment: No *Physical Exam - Vital Signs Last Vital Signs Temp Pulse Resp BP Pulse Ox 140 H 18 162/92 100 05/02/19 18:11 05/02/19 18:11 05/02/19 18:11 05/02/19 18:11 ED Treatment Course - LABORATORY CBC & Chemistry Diagram: 05/02/19 18:48 05/02/19 18:48 - ADDITIONAL ORDERS Additional order review: Laboratory Results 05/02/19 18:14 POC Glucometer 236 05/02/19 18:14 POC Glucometer 236 *DC/Admit/Observation/Transfer Diagnosis at time of Disposition: Seizure, Cardiac arrest, STEMI (ST elevation myocardial infarction) - Discharge Dispostion Condition at time of disposition: Fair Decision to Admit order: Yes - Referrals Referrals: Jace Apodaca MD [Primary Care Provider] - - Patient Instructions - Post Discharge Activity
[2019-05-02] MEDS ORDERED: ASPIRIN 300 MG SUPP.RECT PR ONE (18:49)
--- NOTE | 2019-05-02 18:51 | PDOC ---
Attending Attestation - Resident Resident Name: Selena Donnelly - ED Attending Attestation I have performed the following: I have examined & evaluated the patient, The case was reviewed & discussed with the resident, I agree w/resident's findings & plan, Exceptions are as noted - HPI HPI: 05/02/19 18:37 Patient is a 53-year-old female with history of metastatic breast cancer to brain and spine presented from home after 2 witnessed generalized tonic-clonic seizures followed by a period of cardiac arrest prior to arrival in the ED. Patient received IV epinephrine and was intubated by paramedics prior to arrival. As per family, patient is in hospice care but is full code. - Physicial Exam PE: 05/02/19 22:02 upon arrival, patient is noted to be unresponsive, intubated normocephalic, right craniotomy scar is noted, + alopecia present Pupils are equal, 3 mm, round, reactive ET tube in place cta rrr, tachycardic Abdomen is soft, nondistended No obvious deformity to the upper or lower extremities No petechial rash Patient does not to sternal rub - Critical Care Time Total Critical Care Time: 55 Critical Care Statement: The care of this patient involved high complexity decision making to prevent further life threatening deterioration of the patient 's condition and/or to evaluate & treat vital organ system(s) failure or risk of failure. - Medical Decision Making 05/02/19 18:51 Patient is a 53-year-old female with history of metastatic breast CA to brain and spinal cord presented in cardiac arrest (PEA) after witnessed to generalized tonic-clonic seizures. Patient was intubated in route. Patient is on hospice yet appears to be full code. On arrival, patient is noted to be intubated, unresponsive, with equal and reactive pupils bilaterally. Bedside echocardiogram reveals no evidence of pericardial effusion. Dynamic myocardium is noted. EKG reveals sinus tachycardia with ST segment elevations in 1, aVL, V5 and V6 with minimal reciprocal changes consistent with ST elevation myocardial infarction. Given that patient is has known brain lesions, patient is not a candidate for primary PTCA for anticoagulation. Case discussed with Dr. Shields of cardiology. He agrees that the patient may receive aspirin after a CT of head which reveals no evidence of intracranial hemorrhage. We'll also consider hypothermia protocol given return of spontaneous circulation. 05/02/19 19:27 Patient noted to be moving her left upper extremity to the ET tube. et tube noted with tip below terrence. Noted to void extubation, we will administer Ativan -2 mg. Patient's blood pressure remained stable, however, heart rate is noted to increase to 150. Repeat EKG shows no evidence of ST elevation CA, underlying RBBB is noted, sinus tachycardia with short [place] is noted. Will initiate hypothermia protocol. Awaiting CT of head/CTA of chest. keppra administered. 05/02/19 22:01 ct of head shows no evidence of acute intracranial pathology. Previous craniotomy and vasogenic edema noted. CT of chest reveals no evidence of acute PE or significant pericardial effusion. Hypothermia protocol initiated. Patient accepted for admission to the ICU. 05/02/19 22:04 respond to sternal 05/02/19 22:05
[2019-05-02] MEDS: PROPOFOL 1,000,000 MCG/100 ML VIAL IVPB SCH (19:05)
[2019-05-02] MEDS ORDERED: levETIRAcetam 500 MG/5 ML INJECTION VIAL IVPB ONE ×2 (19:07→19:11)
[2019-05-02 19:08] LABS: BASO % 0.3 % (0-2.0); EOS % 0.1 % (0-4.5); HEMATOCRIT 44.4 % (32.4-45.2); HEMOGLOBIN 14.5 GM/dL (10.7-15.3); LYMPH % 6.2 % (8-40); MCH 32.3 pg (25.7-33.7); MCHC 32.6 g/dl (32.0-36.0); MEAN CELL VOLUME 99.1 fl (80-96); MEAN PLT VOLUME 8.1 fl (7.5-11.1); MONO % 3.4 % (3.8-10.2); PLATELET COUNT 417 K/MM3 (134-434); RBC 4.48 M/mm3 (3.60-5.2); RDW 13.1 % (11.6-15.6); WHITE BLOOD COUNT 14.8 K/mm3 (4.0-10.0)
[2019-05-02] MEDS ORDERED: PROPOFOL 1,000,000 MCG/100 ML VIAL ONE (19:11)
[2019-05-02] MEDS ORDERED: VECURONIUM BROMIDE 50 MG in DEXTROSE 5%-WATER - 250 ML IVPB SCH (19:15)
[2019-05-02 19:20] LABS: INR 1.13 (0.83-1.09); PROTHROMBIN TIME (PATIENT) 13.4 SEC (9.7-13.0)
[2019-05-02 19:22] LABS: EPI CELLS 9.3 /HPF (0-5/HPF); HYALINE CASTS 66 /lpf (0-8); URINE APPEARANCE CLEAR; URINE BACTERIA 0.7 /hpf (NEGATIVE); URINE BILIRUBIN NEGATIVE (NEGATIVE); URINE COLOR YELLOW; URINE GLUCOSE (UA) 1+ (NEGATIVE); URINE KETONE NEGATIVE (NEGATIVE); URINE LEUK ESTERASE NEGATIVE (NEGATIVE); URINE NITRITE NEGATIVE (NEGATIVE); URINE PROTEIN 2+ (NEGATIVE); URINE RBC 20 /hpf (0-4); URINE UROBILINOGEN 0.2 mg/dL (0.2-1.0); URINE WBC 3 /hpf (0-5)
[2019-05-02 19:23] LABS: ACTIVATED PTT 29.2 SECONDS (25.2-36.5)
[2019-05-02 19:38] LABS: ALBUMIN 3.2 g/dl (3.4-5.0); BILIRUBIN,TOTAL 0.7 mg/dL (0.2-1); BLOOD UREA NITROGEN 18.5 mg/dL (7-18); CALCIUM 8.8 mg/dL (8.5-10.1); CREATININE 1.3 mg/dL (0.55-1.3); MAGNESIUM 2.1 mg/dL (1.8-2.4)
[2019-05-02] MEDS ORDERED: POTASSIUM CHLORIDE 20 MEQ PREMIX IVPB 100 ML IVPB ONE ×3 (19:53→20:11)
[2019-05-02] MEDS ORDERED: KCL 10 MEQ IVPB 10 MEQ/100 ML INFUS.BAG IVPB ONE (20:10)
[2019-05-02] MEDS: KCL 10 MEQ IVPB 10 MEQ/100 ML INFUS.BAG IVPB SCH ×2 (21:14→21:54)
--- NOTE | 2019-05-02 22:19 | CONSULT ---
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 Briefly, patient w/ history of left sided triple negative breast cancer s/p resection, chemo and radiation completed in 2015 at [facility]. SHe was admitted to [facility] in Jun 2018 for headache and was found to have large brain mass within the inferior thalamic region w/ leftward midline shift, mass effect and edema requiring s/p right temporal craniotomy. She was admitted to [facility] in February for XRT given progressive brain and spinal cord mets. At baseline she requires help w/ ADLs and over the last 3 weeks she has been largely bed bound with worsening mental status. Per OP oncologist she has no more disease modifying therapies available and had been home on hospice care but apparently full code. On day of ICU admission she was noted to have a tonic clonic seizure x2 by family and EMS was activated. On arrival patient required intubation for airway protection and developed PEA arrest requiring 2 rounds of EPI and CPR. Pt had ROSc ~5mins. Pt transported to [facility] ED. In the ED patient unresponsive. CT head done showing post craniotomy changes w/o evidence of acute bleed or mass effect. CTA PE protocol done w/o evidence of large PE but showed LLL consolidation and small right sided effusion. Pt loaded with keppra and placed on cooling protocol. EKG w. ST segment elevations in 1, aVL, V5 and V6 c/w STEMI. Cardiology consulted and given severe moribund state pt not a candidate for PCI. Pt sedated w/ propofol for shivering protocol and transferred to ICU for continued care. - History Source History Provided By: Family Member, Medical Record Limitations to Obtaining History: Unresponsive - Past Medical History Cardio/Vascular: Yes: HTN ...LMP: 12/26/11 Heme/Onc: Yes: Cancer (metastatic triple negative breast cancer s/p chemo and XRT w/ mets to brain s/p craniotomy) - Past Surgical History Past Surgical History: Yes: None, Craniotomy (right sided: 2018) - Alcohol/Substance Use Hx Alcohol Use: No - Smoking History Smoking history: Unknown if ever smoked Have you smoked in the past 12 months: No Home Medications - Allergies Allergies/Adverse Reactions: Allergies Allergy/AdvReac Type Severity Reaction Status Date / Time No Known Drug Allergies Allergy Verified 05/02/19 18:11 - Home Medications Home Medications: Ambulatory Orders Losartan Potassium 100 mg PO HS 08/09/15 Nifedipine [Nifedipine ER] 90 mg PO DAILY 08/09/15 Butalb/Acetaminophen/Caffeine [Kbfkby-Qzyxlsau-Yejw 50-325-40] 1 each PO TID PRN 06/25/18 Furosemide [Lasix -] 40 mg PO DAILY 06/25/18 Metoprolol Succinate 100 mg PO DAILY 06/25/18 Naphazoline HCl/Pheniramine [Visine-A Eye Drops] 15 ml OP ASDIR 06/25/18 Docusate Sodium [Colace -] 100 mg PO TID capsule 07/02/18 Pantoprazole Sodium [Protonix IV] 40 mg IVPUSH DAILY vial 07/02/18 Family Disease History - Family Disease History Family History: Unable to Obtain Review of Systems Unable to obtain ROS, reason: intubation Physical Exam Vital Signs: Vital Signs Temperature 98.5 F 05/02/19 21:57 Pulse Rate 129 H 05/02/19 21:57 Respiratory Rate 12 05/02/19 21:57 Blood Pressure 135/115 H 05/02/19 21:57 O2 Sat by Pulse Oximetry (%) 100 05/02/19 21:57 Current Medications Heparin Sodium (Porcine) (Heparin -) 5,000 unit SQ TID MIGDALIA Propofol (Diprivan -) 1,000,000 mcg in 100 mls @ 2.517 mls/hr IVPB TITR MIGDALIA; Protocol Last Titration: 05/02/19 21:54 Dose: 5 mcg/kg/min, 2.517 mls/hr Vecuronium [place] 50 mg/ (Dextrose) 250 mls @ 25.17 mls/hr IVPB TITR MIGDALIA Last Admin: 05/02/19 19:48 Dose: 1 mcg/kg/min, 25.17 mls/hr Famotidine/Sodium Chloride (Pepcid 20 Mg Premixed Ivpb -) 20 mg in 50 mls @ 100 mls/hr IVPB BID MIGDALIA Piperacillin Sod/Tazobactam (Sod 4.5 gm/ Dextrose) 100 mls @ 200 mls/hr IVPB Q8H-IV MIGDALIA; Protocol Piperacillin Sod/Tazobactam (Sod 4.5 gm/ Dextrose) 100 mls @ 200 mls/hr IVPB Q8H-IV MIGDALIA; Protocol Stop: 05/03/19 10:29 Levetiracetam (Keppra Injection -) 1,000 mg IVPB BID MIGDALIA Constitutional: Yes: Other (intubated and sedated. ill appearing woman) Eyes: Yes: PERRL Cardiovascular: Yes: Tachycardia, S1, S2 Respiratory: Yes: Mechanically Ventilated Gastrointestinal: Yes: Normal Bowel Sounds, Soft Neurological: Yes: Unresponsive Labs: CBC, BMP 05/02/19 18:48 05/02/19 18:48 Troponin, BNP 05/02/19 18:48 Troponin I < 0.02 Imaging - Results Chest X-ray: Report Reviewed, Image Reviewed Cat Scan: Report Reviewed, Image Reviewed Problem List - Problems (1) Cardiac arrest Code(s): I46.9 - CARDIAC ARREST, CAUSE UNSPECIFIED (2) STEMI (ST elevation myocardial infarction) Code(s): I21.3 - ST ELEVATION (STEMI) MYOCARDIAL INFARCTION OF UNSP SITE (3) Seizure Code(s): R56.9 - UNSPECIFIED CONVULSIONS (4) Brain mass Code(s): G93.9 - DISORDER OF BRAIN, UNSPECIFIED (5) Breast cancer, left breast Code(s): C50.912 - MALIGNANT NEOPLASM OF UNSPECIFIED SITE OF LEFT FEMALE BREAST (6) Hypertension Code(s): I10 - ESSENTIAL (PRIMARY) HYPERTENSION Qualifiers: (7) Respiratory failure Code(s): J96.90 - RESPIRATORY FAILURE, UNSP, UNSP W HYPOXIA OR HYPERCAPNIA Assessment/Plan a/p: 53 yo woman metastatic triple negative breast cancer s/p chemo and XRT w/ mets to brain s/p craniotomy in 2018 and spinal cord who had a witnessed tonic- clonic seizure c/b PEA arrest, STEMI now being cooled per protocol. -mechanical ventilation w/ LTVV -ABX for aspiration PNA: zosyn. Culture: blood/sputum/urine -Neurology consulted -cooling protocol goal 33d if she becomes unstable will target 36d. rewarm per protocol -AED: keppra and propofol -cont EEG -OP Oncology notified. There are no further curative or palliative oncologic therapies available -Cardiology consulted. Not a candidate for PCI given moribund state. no anti- coagulation given brain mets. -hold anti-HTN meds Losartan 100mg PO HS; Metoprolol succinate 100mg qd, Nifedipine XL 90mg qd. -ASA daily -NOHEMY baseline SCr 0.8 now 1.3. Renal dose medications. Replete electrolytes. -feeding tube. NPO while being cooled -UFH for DVT PPX -PPI for GI PPX Palliative care consult. Patient was on home hospice. Patient is at end of life with advanced disease now s/p PEA arrest, continuing aggressive life support measures will likely only prolong her dying process Boerem ACNP Pulm/CCM
[2019-05-02] MEDS ORDERED: DEXTROSE 5%-WATER 100 ML IVPB ONE (22:49)
[2019-05-02] MEDS ORDERED: PIPERACILLIN/TAZOBACTAM 4.5 GM VIAL IVPB ONE (22:49)
[2019-05-02] MEDS ORDERED: LABETALOL HCL 5 MG/1 ML (100MG/20 ML VIAL) IVPUSH PRN (22:53)
[2019-05-02] MEDS: HEPARIN NA (PORCINE) 5,000 UNITS/ML 1ML VIAL SQ SCH (22:57)
[2019-05-02] MEDS: levETIRAcetam 500 MG/5 ML INJECTION VIAL IVPB SCH (22:57)
[2019-05-02] MEDS: FAMOTIDINE 20 MG/50 ML IVPB 20 MG/50 ML MG IVPB SCH (22:57)
[2019-05-02] MEDS: PIPERACILLIN/TAZOB 4.5 GM 4.5 GM in DEXTROSE 5%-WATER 100 ML IVPB SCH (22:59)
[2019-05-02 23:48] LABS: ARTERIAL BLD GAS O2 SATURATION 95.8 % (95-98); ARTERIAL BLOOD GAS BASE EXCESS 3.4 meq/l (-2-2); ARTERIAL BLOOD GAS PCO2 35.3 mmHg (35-45); ARTERIAL BLOOD GAS PO2 75.7 mmHg (80-100); ARTERIAL BLOOD GAS pH 7.48 (7.35-7.45)
[2019-05-02 23:52] LABS: ALLENS TEST POSITIVE
[2019-05-03] MEDS ORDERED: DEXTROSE 5%-WATER 100 ML IVPB ONE ×4 (02:02→21:09)
[2019-05-03] MEDS ORDERED: PIPERACILLIN/TAZOBACTAM 4.5 GM VIAL IVPB ONE ×4 (02:02→21:09)
[2019-05-03] MEDS: PIPERACILLIN/TAZOB 4.5 GM 4.5 GM in DEXTROSE 5%-WATER 100 ML IVPB SCH ×3 (02:11→18:31)
[2019-05-03] MEDS: HEPARIN NA (PORCINE) 5,000 UNITS/ML 1ML VIAL SQ SCH ×3 (05:39→21:28)
[2019-05-03 06:47] LABS: INR 1.11 (0.83-1.09); PROTHROMBIN TIME (PATIENT) 13.1 SEC (9.7-13.0)
[2019-05-03 06:49] LABS: ACTIVATED PTT 31.5 SECONDS (25.2-36.5)
[2019-05-03 07:00] LABS: ARTERIAL BLD GAS O2 SATURATION 96.6 % (95-98); ARTERIAL BLOOD GAS BASE EXCESS 2.2 meq/l (-2-2); ARTERIAL BLOOD GAS PCO2 33.1 mmHg (35-45); ARTERIAL BLOOD GAS PO2 77.9 mmHg (80-100); ARTERIAL BLOOD GAS pH 7.49 (7.35-7.45)
[2019-05-03 07:08] LABS: ALLENS TEST POSITIVE
[2019-05-03 07:11] LABS: ALBUMIN 3.2 g/dl (3.4-5.0); BILIRUBIN,DIRECT 0.4 mg/dL (0.0-0.2); BILIRUBIN,TOTAL 0.9 mg/dL (0.2-1); BLOOD UREA NITROGEN 13.9 mg/dL (7-18); CALCIUM 8.8 mg/dL (8.5-10.1); CREATININE 0.7 mg/dL (0.55-1.3); MAGNESIUM 1.7 mg/dL (1.8-2.4); PHOSPHOROUS 2.9 mg/dL (2.5-4.9); TOT PROT 6.7 g/dl (6.4-8.2)
[2019-05-03 07:20] LABS: HEMATOCRIT 43.5 % (32.4-45.2); HEMOGLOBIN 14.8 GM/dL (10.7-15.3); MCH 33.2 pg (25.7-33.7); MCHC 34.1 g/dl (32.0-36.0); MEAN CELL VOLUME 97.2 fl (80-96); MEAN PLT VOLUME 7.9 fl (7.5-11.1); PLATELET COUNT 358 K/MM3 (134-434); RBC 4.47 M/mm3 (3.60-5.2); RDW 13.2 % (11.6-15.6); WHITE BLOOD COUNT 10.9 K/mm3 (4.0-10.0)
[2019-05-03 07:55] LABS: POTASSIUM 2.6 mmol/L (3.5-5.1)
--- NOTE | 2019-05-03 08:13 | PN ---
Progress Note (short form) - Note Progress Note: Seen and examined in ICU 24hrs: -admitted to ICU post arrest -BP stable -placed on cooling protocol -started on keppra for seizures -started on zosyn for HCAP/aspiration -family meeting re: GOC, family to decide about code status Current Medications Heparin Sodium (Porcine) (Heparin -) 5,000 unit SQ TID MIGDALIA Last Admin: 05/03/19 05:39 Dose: 5,000 unit Propofol (Diprivan -) 1,000,000 mcg in 100 mls @ 2.517 mls/hr IVPB TITR MIGDALIA; Protocol Last Titration: 05/03/19 06:51 Dose: 10 mcg/kg/min, 5.035 mls/hr Famotidine/Sodium Chloride (Pepcid 20 Mg Premixed Ivpb -) 20 mg in 50 mls @ 100 mls/hr IVPB BID MIGDALIA Last Admin: 05/02/19 22:57 Dose: 100 mls/hr Piperacillin Sod/Tazobactam (Sod 4.5 gm/ Dextrose) 100 mls @ 200 mls/hr IVPB Q8H-IV MIGDALIA; Protocol Piperacillin Sod/Tazobactam (Sod 4.5 gm/ Dextrose) 100 mls @ 200 mls/hr IVPB Q8H-IV MIGDALIA; Protocol Stop: 05/03/19 10:29 Last Admin: 05/03/19 02:11 Dose: 200 mls/hr Potassium Chloride (Potassium Chloride 10 Meq Premix Ivpb -) 10 meq in 100 mls @ 100 mls/hr IVPB Q60M MIGDALIA Stop: 05/03/19 11:14 Labetalol HCl (Normodyne Injection -) 20 mg IVPUSH Q4H PRN PRN Reason: SBP >180 Levetiracetam (Keppra Injection -) 1,000 mg IVPB BID [facility] Last Admin: 05/02/19 22:57 Dose: 1,000 mg Potassium Chloride (Potassium Chloride Oral Liquid) 40 meq PO ONCE ONE Stop: 05/03/19 08:08 CBC, BMP 05/03/19 05:40 05/03/19 05:40 ABG Results ABG pH 7.49 (7.35-7.45) H 05/03/19 06:00 ABG pCO2 at Pt Temp 33.1 mmHg (35-45) L 05/03/19 06:00 ABG pO2 at Pt Temp 77.9 mmHg (80-100) L 05/03/19 06:00 ABG HCO3 25.0 mmol/L (22-27) 05/03/19 06:00 ABG O2 Sat (Measured) 96.6 % (95-98) 05/03/19 06:00 ABG O2 Content 22.4 % vol 05/03/19 06:00 ABG Base Excess 2.2 meq/l (-2-2) H 05/03/19 06:00 Exam: General: ill appearing woman sedated on mechanical ventilation HEENT: PERRL, no JVD CV: RRR, no s1, s2 Pulm: course Abd: obese, SNTND Ext: WWP +2 Neuro: RASS -4/5 CXR: NGT in good possition, RLL atelectisis vs consolidation Problem List - Problems (1) Cardiac arrest Code(s): I46.9 - CARDIAC ARREST, CAUSE UNSPECIFIED (2) STEMI (ST elevation myocardial infarction) Code(s): I21.3 - ST ELEVATION (STEMI) MYOCARDIAL INFARCTION OF UNSP SITE (3) Seizure Code(s): R56.9 - UNSPECIFIED CONVULSIONS (4) Brain mass Code(s): G93.9 - DISORDER OF BRAIN, UNSPECIFIED (5) Breast cancer, left breast Code(s): C50.912 - MALIGNANT NEOPLASM OF UNSPECIFIED SITE OF LEFT FEMALE BREAST (6) Hypertension Code(s): I10 - ESSENTIAL (PRIMARY) HYPERTENSION Qualifiers: (7) Respiratory failure Code(s): J96.90 - RESPIRATORY FAILURE, UNSP, UNSP W HYPOXIA OR HYPERCAPNIA Assessment/Plan a/p: 53 yo woman metastatic triple negative breast cancer s/p chemo and XRT w/ mets to brain s/p craniotomy in 2018 and spinal cord who had a witnessed tonic- clonic seizure c/b PEA arrest, STEMI now being cooled per protocol. -mechanical ventilation w/ LTVV -ABX for aspiration PNA: zosyn. -f/u Culture: blood/sputum/urine -Neurology consulted -cooling protocol goal 33d if she becomes unstable will target 36d. rewarm per protocol -AED: keppra and propofol -cont EEG ordered to r/o subclinical status -OP Oncology notified. There are no further curative or palliative oncologic therapies available -Cardiology consulted. Not a candidate for PCI given moribund state. no anti- coagulation given brain mets. -hold anti-HTN meds Losartan 100mg PO HS; Metoprolol succinate 100mg qd, Nifedipine XL 90mg qd. -ASA daily -resolved NOHEMY now at baseline: Replete electrolytes. -feeding tube. NPO while being cooled -UFH for DVT PPX -PPI for GI PPX Palliative care consult. Patient was on home hospice. Patient is at end of life with advanced disease now s/p PEA arrest, continuing aggressive life support measures will likely only prolong her dying process Boerem ACNP Pulm/CCM Problem List - Problems (1) Cardiac arrest Code(s): I46.9 - CARDIAC ARREST, CAUSE UNSPECIFIED (2) STEMI (ST elevation myocardial infarction) Code(s): I21.3 - ST ELEVATION (STEMI) MYOCARDIAL INFARCTION OF UNSP SITE (3) Seizure Code(s): R56.9 - UNSPECIFIED CONVULSIONS (4) Brain mass Code(s): G93.9 - DISORDER OF BRAIN, UNSPECIFIED (5) Breast cancer, left breast Code(s): C50.912 - MALIGNANT NEOPLASM OF UNSPECIFIED SITE OF LEFT FEMALE BREAST (6) Hypertension Code(s): I10 - ESSENTIAL (PRIMARY) HYPERTENSION Qualifiers: (7) Respiratory failure Code(s): J96.90 - RESPIRATORY FAILURE, UNSP, UNSP W HYPOXIA OR HYPERCAPNIA
[2019-05-03] MEDS ORDERED: POTASSIUM CHLORIDE ORAL LIQUID 20 MEQ/15 ML PO ONE (09:00)
[2019-05-03] MEDS: FAMOTIDINE 20 MG/50 ML IVPB 20 MG/50 ML MG IVPB SCH ×2 (09:10→21:26)
[2019-05-03] MEDS: levETIRAcetam 500 MG/5 ML INJECTION VIAL IVPB SCH ×2 (09:11→21:26)
[2019-05-03] MEDS: KCL 10 MEQ IVPB 10 MEQ/100 ML INFUS.BAG IVPB SCH ×3 (09:12→12:13)
[2019-05-03] MEDS ORDERED: PT OWN MED DRAWER 7, Y5N ONE (09:29)
[2019-05-03] MEDS ORDERED: LACTATED RINGERS SOLUTION 1000 ML INFUS.BAG IV ONE (10:45)
[2019-05-03] MEDS ORDERED: PIPERACILLIN/TAZOB 4.5 GM 4.5 GM in DEXTROSE 5%-WATER 100 ML IVPB SCH (11:00)
[2019-05-03] MEDS: PROPOFOL 1,000,000 MCG/100 ML VIAL IVPB SCH ×2 (12:14→21:28)
--- NOTE | 2019-05-03 14:12 | HP ---
Admitting History and Physical - Primary Care Physician PCP: Jace Apodaca - Admission Chief Complaint: Status eplepticus/cardiac arrest History of Present Illness: 53 yrs old on palliative care , full code H/O metastatic triple negative breast cancer s/p chemo and XRT w/ mets to brain s/p craniotomy in 2018 is BIB EMS from home as per family patient was in her usual state of health had 2 episodes of witnessed tonic-clonic seizures, 911 was activated on route to ED patient had cardiac arrest with PEA recived 2 round of Epi and CPR enroute intubated on arrival to ED Rhythm resorted patient remained intubated hypothermia protocol started, EKG shows tachycardia with ST segment elevations in 1, aVL, V5 and V6 considering terminal illness no intervention offered, loaded with Demario , patient was diagnosed Brain Metastatic lesion in June 2018 at [facility] brain imaging showed large brain mass within the inferior thalamic region w/ leftward midline shift, mass effect and edema underwent right temporal craniotomy recently admitted at [facility] in February for XRT given progressive brain and spinal cord mets, at base line almost bed bound for 3 wks , lab showed hypokalemia, elevated troponin I, CT haed post Op changes, today examined and discussed with the , patient is sedated offerers no information. History Source: Family Member - Past Medical History Cardiovascular: Yes: HTN ...LMP: 12/26/11 Heme/Onc: Yes: Cancer (metastatic triple negative breast cancer s/p chemo and XRT w/ mets to brain s/p craniotomy) - Past Surgical History Past Surgical History: Yes: None, Craniotomy (right sided: 2017) - Smoking History Smoking history: Unknown if ever smoked Have you smoked in the past 12 months: No - Alcohol/Substance Use Hx Alcohol Use: No Home Medications - Allergies Allergies/Adverse Reactions: Allergies Allergy/AdvReac Type Severity Reaction Status Date / Time No Known Drug Allergies Allergy Verified 05/02/19 18:11 - Home Medications Home Medications: Ambulatory Orders Losartan Potassium 100 mg PO HS 08/09/15 Nifedipine [Nifedipine ER] 90 mg PO DAILY 08/09/15 Butalb/Acetaminophen/Caffeine [Tawlcf-Uztlcxht-Elks 50-325-40] 1 each PO TID PRN 06/25/18 Furosemide [Lasix -] 40 mg PO DAILY 06/25/18 Metoprolol Succinate 100 mg PO DAILY 06/25/18 Naphazoline HCl/Pheniramine [Visine-A Eye Drops] 15 ml OP ASDIR 06/25/18 Docusate Sodium [Colace -] 100 mg PO TID capsule 07/02/18 Pantoprazole Sodium [Protonix IV] 40 mg IVPUSH DAILY vial 07/02/18 Review of Systems Unable to obtain ROS, reason: Altered mental status Physical Examination Vital Signs: Vital Signs Temperature 90.0 F L 05/03/19 11:14 Pulse Rate 114 H 05/03/19 13:18 Respiratory Rate 40 H 05/03/19 13:18 Blood Pressure 119/83 05/03/19 13:18 O2 Sat by Pulse Oximetry (%) 100 05/03/19 09:00 Sedated NG and ETT at place on Hypothermia protocol HEENT: ETT at place , mm moist s/p craniotomy (healed scar) NECK: No JVD No Bruit CHEST: B/L equal AE CVS: S1 S2 Tachycardia ABD: No distention, non tender EXT: Trace edema feet BELT MOLDER: Sedated Labs: CBC, BMP 05/03/19 05:40 05/03/19 05:40 Troponin, BNP 05/03/19 05:40 Troponin I 1.16 H* Imaging - Results Chest X-ray: Report Reviewed (S/P Intiubation) Cat Scan: Report Reviewed (Head Post Op changes) EKG: Report Reviewed (HR [address] T changes in ant leads) Problem List - Problems (1) Cardiac arrest Assessment/Plan: S/P Cardiopulmonary arrest after seizures intubated on Vent Hypothermiaproatocol , manhhgemt as per ICU team now in sinus rhythm, GI pressure and DVT prophylaxis Code(s): I46.9 - CARDIAC ARREST, CAUSE UNSPECIFIED (2) Respiratory failure Assessment/Plan: on Vent , Ventilator management as per ICU team. Code(s): J96.90 - RESPIRATORY FAILURE, UNSP, UNSP W HYPOXIA OR HYPERCAPNIA (3) Seizure Assessment/Plan: Brain mets s/p resection loaded with Keppra now seizures free Code(s): R56.9 - UNSPECIFIED CONVULSIONS (4) Breast cancer, left breast Assessment/Plan: with mets to Brain no more therapy on palliative care Code(s): C50.912 - MALIGNANT NEOPLASM OF UNSPECIFIED SITE OF LEFT FEMALE BREAST (5) Hypokalemia Assessment/Plan: repleted F/U BMP and Mag level Code(s): E87.6 - HYPOKALEMIA (6) Elevated troponin Assessment/Plan: most likely demand ischemia F/U Cardiology recommondations. Code(s): R74.8 - ABNORMAL LEVELS OF OTHER SERUM ENZYMES (7) Counseling regarding goals of care Assessment/Plan: Pallitive consult , discussed with the family. Code(s): Z71.89 - OTHER SPECIFIED COUNSELING Assessment/Plan Active Medications Chlorhexidine Gluconate (Peridex -) 15 ml MM BID MIGDALIA Last Admin: 05/03/19 21:29 Dose: 15 ml Heparin Sodium (Porcine) (Heparin -) 5,000 unit SQ TID MIGDALIA Last Admin: 05/03/19 21:28 Dose: 5,000 unit Propofol (Diprivan -) 1,000,000 mcg in 100 mls @ 2.517 mls/hr IVPB TITR MIGDALIA; Protocol Last Admin: 05/03/19 21:28 Dose: 23.83 mcg/kg/min, 12 mls/hr Famotidine/Sodium Chloride (Pepcid 20 Mg Premixed Ivpb -) 20 mg in 50 mls @ 100 mls/hr IVPB BID MIGDALIA Last Admin: 05/03/19 21:26 Dose: 100 mls/hr Piperacillin Sod/Tazobactam (Sod 4.5 gm/ Dextrose) 100 mls @ 200 mls/hr IVPB Q8H-IV MIGDALIA; Protocol Piperacillin Sod/Tazobactam (Sod 4.5 gm/ Dextrose) 100 mls @ 200 mls/hr IVPB Q8H-IV MIGDALIA; Protocol Stop: 05/04/19 10:29 Last Admin: 05/03/19 18:31 Dose: 200 mls/hr Labetalol HCl (Normodyne Injection -) 20 mg IVPUSH Q4H PRN PRN Reason: SBP >180 Levetiracetam (Keppra Injection -) 1,000 mg IVPB BID [facility] Last Admin: 05/03/19 21:26 Dose: 1,000 mg Mupirocin (Bactroban Ointment (For Decolonization) -) 1 applic NS BID [facility] Stop: 05/08/19 13:59 Last Admin: 05/03/19 21:29 Dose: Not Given
--- NOTE | 2019-05-03 15:59 | CON.CARD ---
Consult Consult Specialty:: Cardiology Referred by:: ER/hospitalist Reason for Consultation:: cardiac arrest, abnl ekg - History of Present Illness Chief Complaint: seizure, cardiac arrest History of Present Illness: 53 year old woman with breast cancer mets to brain and spinal cord, s/p chemo and RT and craniotomy has been on home hospice but as per family report full code, admitted after seizure witnessed by family followed by PEA arrest in transport to ER. resuscitated with CPR, intubation, epi with ROSC after approx 5 minutes. EKG at that time was concerning for possible STEMI. Pt not a cardiac cath candidate, admitted to icu and hypothermia protocol was started. pt seen and examined today and discussed with her at bedside and her daughter via the phone. pt remains intubated, sedated, mechanically ventilated unresponsive currently. - History Source History Provided By: Family Member, Medical Record Limitations to Obtaining History: Intubated - Past Medical History Cardio/Vascular: Yes: HTN ...LMP: 12/26/11 - Past Surgical History Past Surgical History: Yes: None, Craniotomy (right sided: 2018) - Alcohol/Substance Use Hx Alcohol Use: No - Smoking History Smoking history: Unknown if ever smoked Have you smoked in the past 12 months: No Home Medications - Allergies Allergies/Adverse Reactions: Allergies Allergy/AdvReac Type Severity Reaction Status Date / Time No Known Drug Allergies Allergy Verified 05/02/19 18:11 - Home Medications Home Medications: Ambulatory Orders Losartan Potassium 100 mg PO HS 08/09/15 Nifedipine [Nifedipine ER] 90 mg PO DAILY 08/09/15 Butalb/Acetaminophen/Caffeine [Gtzgnw-Icsdmhml-Iciy 50-325-40] 1 each PO TID PRN 06/25/18 Furosemide [Lasix -] 40 mg PO DAILY 06/25/18 Metoprolol Succinate 100 mg PO DAILY 06/25/18 Naphazoline HCl/Pheniramine [Visine-A Eye Drops] 15 ml OP ASDIR 06/25/18 Docusate Sodium [Colace -] 100 mg PO TID capsule 07/02/18 Pantoprazole Sodium [Protonix IV] 40 mg IVPUSH DAILY vial 07/02/18 Family Disease History - Family Disease History Family History: Denies Review of Systems - Review of Systems Constitutional: reports: Weakness Cardiovascular: denies: Chest Pain, Edema, Palpitations, Shortness of Breath Respiratory: denies: SOB Neurological: reports: Change in LOC, Seizure Vital Signs: Vital Signs Temperature 90.0 F L 05/03/19 11:14 Pulse Rate 122 H 05/03/19 15:00 Respiratory Rate 25 H 05/03/19 15:00 Blood Pressure 118/79 05/03/19 15:00 O2 Sat by Pulse Oximetry (%) 100 05/03/19 09:00 Constitutional: Yes: No Distress Respiratory: Yes: Regular, Diminished, Intubated, Mechanically Ventilated. No: Rales, Rhonchi, Wheezes Cardiovascular: Yes: Tachycardia. No: Regular Rate and Rhythm, Bradycardia, Pulse Irregular, Gallop, Rub, Varicosities JVD: No Carotid Bruit: No PMI: Non-Displaced Heart Sounds: Yes: S1, S2. No: Split S2, S3, S4, Clicks, Gallop, Rub, Bruit Murmur: No: Systolic Murmur, Diastolic Murmur Edema: No Neurological: No: Alert, Oriented Psychiatric: No: Alert, Oriented - Other Data Labs, Other Data: CBC, BMP 05/03/19 05:40 05/03/19 05:40 INR, PTT INR 1.11 (0.83-1.09) H 05/03/19 05:40 Troponin, BNP 05/02/19 05/03/19 18:48 05:40 Troponin I < 0.02 1.16 H* Troponin, BNP 05/02/19 05/03/19 18:48 05:40 Troponin I < 0.02 1.16 H* 1st ekg-sinus tach st elevation I, aVL, V5, V6 repeat ekg-improvement in ST elevations. Imaging - Results Chest X-ray: Report Reviewed, Image Reviewed EKG: Report Reviewed, Image Reviewed Assessment/Plan 53 year old woman with breast cancer mets to brain and spinal cord, s/p chemo and RT and craniotomy has been on home hospice but as per family report full code, admitted after seizure witnessed by family followed by PEA arrest in transport to ER. resuscitated with CPR, intubation, epi with ROSC after approx 5 minutes. EKG at that time was concerning for possible STEMI. Pt not a cardiac cath candidate, admitted to icu and hypothermia protocol was started. discussed with her at bedside and her daughter via the phone. pt remains intubated, sedated, mechanically ventilated unresponsive currently. Abnormal ekg/PEA cardiac arrest -transient st elevations at time of PEA arrest after seizure -known end stage cancer on home hospice with brain and spine mets -cardiac enzymes trend not c/w a true stemi with normal CK levels and only mildly elevated troponin -possible ekg changes secondary to neurologic event, seizure, pea arrest followed by resuscitation -there is not indication and pt is not a candidate for cardiac cath, discussed this in detail with pts family today -cont supportive care as per ICU -palliative care consult please call with any additional questions.
--- NOTE | 2019-05-03 16:44 | EKG ---
Test Reason : Blood Pressure : / mmHG Vent. Rate : 152 BPM Atrial Rate : 152 BPM P-R Int : 088 ms QRS Dur : 130 ms QT Int : 352 ms P-R-T Axes : 000 106 082 degrees QTc Int : 559 ms SUPRAVENTRICULAR TACHYCARDIA RIGHT BUNDLE BRANCH BLOCK T WAVE ABNORMALITY, CONSIDER LATERAL ISCHEMIA ABNORMAL ECG WHEN COMPARED WITH ECG OF 02-MAY-2019 18:07, CT INTERVAL HAS DECREASED ST NO LONGER ELEVATED IN LATERAL LEADS SUPRAVENTRICULAR TACHYCARDIA NOW PRESENT Confirmed by EDELMIRA CRUZ MD ([id number]) on 05/03/2019 4:44:42 PM Referred By: Confirmed By:EDELMIRA CRUZ MD
[2019-05-03 17:50] LABS: BLOOD UREA NITROGEN 13.3 mg/dL (7-18); CREATININE 0.7 mg/dL (0.55-1.3); MAGNESIUM 1.6 mg/dL (1.8-2.4); PHOSPHOROUS 3.3 mg/dL (2.5-4.9); POTASSIUM 5.3 mmol/L (3.5-5.1)
[2019-05-03] MEDS: CHLORHEXIDINE GLUCONATE 0.12% 15ML CUP MM SCH ×2 (18:31→21:29)
[2019-05-03] MEDS: MUPIROCIN 2% TOPICAL OINTMENT FOR DECOLONIZATION NS SCH ×2 (21:28→21:29)
[2019-05-04] MEDS ORDERED: DEXTROSE 5%-WATER 100 ML IVPB ONE ×2 (01:37→08:59)
[2019-05-04] MEDS ORDERED: PIPERACILLIN/TAZOBACTAM 4.5 GM VIAL IVPB ONE ×2 (01:37→08:59)
[2019-05-04] MEDS: PIPERACILLIN/TAZOB 4.5 GM 4.5 GM in DEXTROSE 5%-WATER 100 ML IVPB SCH ×2 (01:38→09:02)
[2019-05-04] MEDS: HEPARIN NA (PORCINE) 5,000 UNITS/ML 1ML VIAL SQ SCH ×3 (05:02→21:51)
[2019-05-04 06:33] LABS: HEMATOCRIT 40.3 % (32.4-45.2); HEMOGLOBIN 13.6 GM/dL (10.7-15.3); MCH 32.9 pg (25.7-33.7); MCHC 33.7 g/dl (32.0-36.0); MEAN CELL VOLUME 97.5 fl (80-96); PLATELET COUNT 306 K/MM3 (134-434); RBC 4.13 M/mm3 (3.60-5.2); RDW 13.3 % (11.6-15.6); WHITE BLOOD COUNT 14.4 K/mm3 (4.0-10.0)
[2019-05-04 06:57] LABS: BLOOD UREA NITROGEN 12.6 mg/dL (7-18); CALCIUM 8.7 mg/dL (8.5-10.1); CREATININE 0.6 mg/dL (0.55-1.3); MAGNESIUM 1.6 mg/dL (1.8-2.4); PHOSPHOROUS 2.9 mg/dL (2.5-4.9); POTASSIUM 3.2 mmol/L (3.5-5.1)
[2019-05-04 06:58] LABS: ARTERIAL BLD GAS O2 SATURATION 93.9 % (95-98); ARTERIAL BLOOD GAS BASE EXCESS 1.2 meq/l (-2-2); ARTERIAL BLOOD GAS PCO2 34.9 mmHg (35-45); ARTERIAL BLOOD GAS PO2 70.2 mmHg (80-100); ARTERIAL BLOOD GAS pH 7.45 (7.35-7.45)
[2019-05-04 07:19] LABS: ALLENS TEST POSITIVE
[2019-05-04] MEDS ORDERED: MAGNESIUM SULF 50% (8.12 MEQ/2 ML-1 GM VIAL) IVPB ONE (07:50)
[2019-05-04] MEDS ORDERED: SODIUM CHLORIDE 250 ML IV STA ×2 (08:03→08:11)
[2019-05-04] MEDS: KCL 10 MEQ IVPB 10 MEQ/100 ML INFUS.BAG IVPB SCH ×3 (09:01→11:22)
[2019-05-04] MEDS: CHLORHEXIDINE GLUCONATE 0.12% 15ML CUP MM SCH ×2 (09:02→21:51)
[2019-05-04] MEDS: FAMOTIDINE 20 MG/50 ML IVPB 20 MG/50 ML MG IVPB SCH ×2 (09:02→21:51)
[2019-05-04] MEDS: levETIRAcetam 500 MG/5 ML INJECTION VIAL IVPB SCH ×2 (09:05→21:51)
[2019-05-04] MEDS: MUPIROCIN 2% TOPICAL OINTMENT FOR DECOLONIZATION NS SCH ×2 (09:06→21:52)
[2019-05-04] MEDS ORDERED: DOPAMINE 400 MG/D5W - 400,000 MCG/250 ML INFUS.BAG IVPB ONE (10:12)
[2019-05-04] MEDS ORDERED: DOPAMINE 400 MG/D5W - 400,000 MCG/250 ML INFUS.BAG IVPB SCH (10:15)
--- NOTE | 2019-05-04 11:24 | EKG ---
Test Reason : Blood Pressure : / mmHG Vent. Rate : 106 BPM Atrial Rate : 106 BPM P-R Int : 162 ms QRS Dur : 134 ms QT Int : 386 ms P-R-T Axes : 073 063 250 degrees QTc Int : 512 ms SINUS TACHYCARDIA RIGHT BUNDLE BRANCH BLOCK T WAVE ABNORMALITY, CONSIDER INFEROLATERAL ISCHEMIA ABNORMAL ECG WHEN COMPARED WITH ECG OF 02-MAY-2019 18:52, POSSIBLE RHYTHM CHANGE VENT. RATE HAS DECREASED Confirmed by RONNY SIU, MARIA ELENA ([id number]) on 05/04/2019 11:24:37 AM Referred By: Confirmed By:MARIA ELENA JEFFERSON MD
--- NOTE | 2019-05-04 11:31 | EKG ---
Test Reason : Blood Pressure : / mmHG Vent. Rate : 117 BPM Atrial Rate : 117 BPM P-R Int : 126 ms QRS Dur : 130 ms QT Int : 364 ms P-R-T Axes : 085 038 029 degrees QTc Int : 507 ms SINUS TACHYCARDIA RIGHT BUNDLE BRANCH BLOCK ABNORMAL ECG WHEN COMPARED WITH ECG OF 25-JUN-2018 11:26, PREMATURE SUPRAVENTRICULAR COMPLEXES ARE NO LONGER PRESENT VENT. RATE HAS INCREASED BY 47 BPM Confirmed by RONNY SIU, MARIA ELENA ([id number]) on 05/04/2019 11:30:55 AM Referred By: Confirmed By:MARIA ELENA JEFFERSON MD
--- NOTE | 2019-05-04 13:22 | PN ---
Teaching Attending Note Name of Resident: Essie Quinn ATTENDING PHYSICIAN STATEMENT I saw and evaluated the patient. I reviewed the resident's note and discussed the case with the resident. I agree with the resident's findings and plan as documented. SUBJECTIVE: Patient seen and examined in the ICU. Intubated. Minimally responsive to noxious stimuli. AC Mode of vent. Developed hypotension requiring Dopamine infusion. ICU staff D/W family : no central access for now / requested Palliative care evaluation Intake & Output 05/01/19 05/02/19 05/03/19 05/04/19 23:59 23:59 23:59 23:59 Intake Total 1657 244 Output Total 650 2300 400 Balance -650 -643 -156 Weight 155 lb 9.6 oz 155 lb 14.4 oz 155 lb 6 oz Last Vital Signs Temp Pulse Resp BP Pulse Ox 98.4 F 125 H 22 H 115/78 95 05/04/19 08:00 05/04/19 12:00 05/04/19 12:00 05/04/19 12:00 05/04/19 11:53 Active Medications Chlorhexidine Gluconate (Peridex -) [address] [facility] Last Admin: 05/04/19 09:02 Dose: 15 ml Heparin Sodium (Porcine) (Heparin -) 5,000 unit SQ TID [facility] Last Admin: 05/04/19 05:02 Dose: 5,000 unit Propofol (Diprivan -) 1,000,000 mcg in 100 mls @ 2.517 mls/hr IVPB TITR [facility]; Protocol Last Admin: 05/03/19 21:28 Dose: 23.83 mcg/kg/min, 12 mls/hr Famotidine/Sodium Chloride (Pepcid 20 Mg Premixed Ivpb -) 20 mg in 50 mls @ 100 mls/hr IVPB BID [facility] Last Admin: 05/04/19 09:02 Dose: 100 mls/hr Piperacillin Sod/Tazobactam (Sod 4.5 gm/ Dextrose) 100 mls @ 200 mls/hr IVPB Q8H-IV [facility]; Protocol Labetalol HCl (Normodyne Injection -) 20 mg IVPUSH Q4H PRN PRN Reason: SBP >180 Levetiracetam (Keppra Injection -) 1,[address] [facility] Last Admin: 05/04/19 09:05 Dose: 1,000 mg Mupirocin (Bactroban Ointment (For Decolonization) -) 1 applic NS BID [facility] Stop: 05/08/19 13:59 Last Admin: 05/04/19 09:06 Dose: 1 applic Constitutional: Yes: Intubated, minimally responsive Respiratory: Yes: Intubated, Mechanically Ventilated. No: Rales, Rhonchi, Wheezes Cardiovascular: Yes: Tachycardia. No: Regular Rate and Rhythm, Bradycardia, Pulse Irregular, Gallop, Rub, Varicosities JVD: No Heart Sounds: Yes: S1, S2. Murmur: No: Systolic Murmur, Diastolic Murmur Edema: No Neurological: Minimally responsive Psychiatric: Minimally responsive - Other Data Labs, Other Data: Laboratory Results - last 24 hr 05/03/19 05/03/19 05/04/19 16:33 21:01 05:35 WBC 14.4 H RBC 4.13 Hgb 13.6 Hct 40.3 MCV 97.5 H MCH 32.9 MCHC 33.7 RDW 13.3 Plt Count 306 MPV 8.0 Puncture Site ABG pH ABG pCO2 at Pt Temp ABG pO2 at Pt Temp ABG HCO3 ABG O2 Sat (Measured) ABG O2 Content ABG Base Excess [place] Test O2 Delivery Device Oxygen Flow Rate Vent Mode Vent Rate Mechanical Rate PEEP Pressure Support Vent Sodium 142 Potassium 5.3 H Chloride 103 Carbon Dioxide 26 Anion Gap 13 BUN 13.3 Creatinine 0.7 Est GFR (CKD-EPI)AfAm 114.65 Est GFR (CKD-EPI)NonAf 98.92 POC Glucometer 124 Random Glucose 95 Calcium 9.0 Phosphorus 3.3 Magnesium 1.6 L Creatine Kinase Creatine Kinase Index CK-MB (CK-2) Troponin I 05/04/19 05/04/19 05:35 06:30 WBC RBC Hgb Hct MCV MCH MCHC RDW Plt Count MPV Puncture Site Right radial ABG pH 7.45 ABG pCO2 at Pt Temp 34.9 L ABG pO2 at Pt Temp 70.2 L ABG HCO3 24.2 ABG O2 Sat (Measured) 93.9 L ABG O2 Content 19.4 ABG Base Excess 1.2 [place] Test Positive O2 Delivery Device Mech vent Oxygen Flow Rate 40% Vent Mode A/c Vent Rate 16 Mechanical Rate Yes PEEP 5.0 Pressure Support Vent 400 Sodium 142 Potassium 3.2 L Chloride 106 Carbon Dioxide 25 Anion Gap 11 BUN 12.6 Creatinine 0.6 Est GFR (CKD-EPI)AfAm 120.61 Est GFR (CKD-EPI)NonAf 104.06 POC Glucometer Random Glucose 111 H Calcium 8.7 Phosphorus 2.9 Magnesium 1.6 L Creatine Kinase 346 H Creatine Kinase Index 0.8 CK-MB (CK-2) 2.9 Troponin I 0.23 H Assessment/Plan Acute CP arrest Anoxic Brain Injury Metastatic Breast cancer (mets to brain and spinal cord) S/P Chemo and RT S/P craniotomy ACS (?) Demand Ischemia AC Mode of vent Family has deferred TLC insertion Follow Neuro exam S/P Hypothermia Monitor off sedation to further assess Neuro exam Palliative care consult Supportive care Requires ICU monitoring Dr Gray Critical care time spent in reviewing chart, evaluating patient and formulating plan - 36 minutes.
--- NOTE | 2019-05-04 15:00 | PN ---
Physical Exam: SUBJECTIVE: Patient seen and examined at bedside. pt is sedated and intubated. OBJECTIVE: Vital Signs Period Temp Pulse Resp BP Sys/Gilman Pulse Ox Last 24 Hr 94.5 F-98.5 F 96-125 16-29 65-134/52-99 95-100 GENERAL: The patient is sedated and intubated HEAD: Normal with no signs of trauma. EYES: PERRL LUNGS: vent sounds equal b/l HEART: tachycardic and regular rhythm, S1, S2 without murmur, rub or gallop. ABDOMEN: Soft, nondistended, normoactive bowel sounds EXTREMITIES: 2+ pulses, warm, well-perfused, no edema. SKIN: Warm, dry, normal turgor, no rashes or lesions noted Laboratory Last Values WBC 14.4 K/mm3 (4.0-10.0) H 05/04/19 05:35 RBC 4.13 M/mm3 (3.60-5.2) 05/04/19 05:35 Hgb 13.6 GM/dL (10.7-15.3) 05/04/19 05:35 Hct 40.3 % (32.4-45.2) 05/04/19 05:35 MCV 97.5 fl (80-96) H 05/04/19 05:35 MCH 32.9 pg (25.7-33.7) 05/04/19 05:35 MCHC 33.7 g/dl (32.0-36.0) 05/04/19 05:35 RDW 13.3 % (11.6-15.6) 05/04/19 05:35 Plt Count 306 K/MM3 (134-434) 05/04/19 05:35 MPV 8.0 fl (7.5-11.1) 05/04/19 05:35 Absolute Neuts (auto) 13.3 K/mm3 (1.5-8.0) H 05/02/19 18:48 Neutrophils % 90.0 % (42.8-82.8) H 05/02/19 18:48 Lymphocytes % 6.2 % (8-40) L D 05/02/19 18:48 Monocytes % 3.4 % (3.8-10.2) L 05/02/19 18:48 Eosinophils % 0.1 % (0-4.5) D 05/02/19 18:48 Basophils % 0.3 % (0-2.0) 05/02/19 18:48 Nucleated RBC % 0 % (0-0) 05/02/19 18:48 PT with INR 13.10 SEC (9.7-13.0) H 05/03/19 05:40 INR 1.11 (0.83-1.09) H 05/03/19 05:40 PTT (Actin FS) 31.5 SECONDS (25.2-36.5) 05/03/19 05:40 Anticoagulation Therapy No Result Required. 05/02/19 23:30 Puncture Site Right radial 05/04/19 06:30 Patient Temperature 96.8 05/03/19 06:00 ABG pH 7.45 (7.35-7.45) 05/04/19 06:30 ABG pCO2 at Pt Temp 34.9 mmHg (35-45) L 05/04/19 06:30 ABG pO2 at Pt Temp 70.2 mmHg (80-100) L 05/04/19 06:30 ABG HCO3 24.2 mmol/L (22-27) 05/04/19 06:30 ABG O2 Sat (Measured) 93.9 % (95-98) L 05/04/19 06:30 ABG O2 Content 19.4 % vol 05/04/19 06:30 ABG Base Excess 1.2 meq/l (-2-2) 05/04/19 06:30 [place] Test Positive 05/04/19 06:30 O2 Delivery Device [facility] vent 05/04/19 06:30 Oxygen Flow Rate 40% 05/04/19 06:30 Vent Mode A/c 05/04/19 06:30 Vent Rate 16 05/04/19 06:30 Mechanical Rate Yes 05/04/19 06:30 PEEP 5.0 cmH2O 05/04/19 06:30 Pressure Support Vent 400 05/04/19 06:30 Sodium 142 mmol/L (136-145) 05/04/19 05:35 Potassium 3.2 mmol/L (3.5-5.1) L 05/04/19 05:35 Chloride 106 mmol/L (98-107) 05/04/19 05:35 Carbon Dioxide 25 mmol/L (21-32) 05/04/19 05:35 Anion Gap 11 MMOL/L (8-16) 05/04/19 05:35 BUN 12.6 mg/dL (7-18) 05/04/19 05:35 Creatinine 0.6 mg/dL (0.55-1.3) 05/04/19 05:35 Est GFR (CKD-EPI)AfAm 120.61 05/04/19 05:35 Est GFR (CKD-EPI)NonAf 104.06 05/04/19 05:35 POC Glucometer 124 UNITS (80-120) 05/03/19 21:01 Random Glucose 111 mg/dL (74-106) H 05/04/19 05:35 Lactic Acid 9.0 mmol/L (0.4-2.0) H* 05/02/19 18:48 Calcium 8.7 mg/dL (8.5-10.1) 05/04/19 05:35 Phosphorus 2.9 mg/dL (2.5-4.9) 05/04/19 05:35 Magnesium 1.6 mg/dL (1.8-2.4) L 05/04/19 05:35 Total Bilirubin 0.9 mg/dL (0.2-1) 05/03/19 05:40 Direct Bilirubin 0.4 mg/dL (0.0-0.2) H 05/03/19 05:40 AST 39 U/L (15-37) H 05/03/19 05:40 ALT 70 U/L (13-61) H 05/03/19 05:40 Alkaline Phosphatase 86 U/L (45-117) 05/03/19 05:40 Creatine Kinase 346 U/L (26-192) H 05/04/19 05:35 Creatine Kinase Index 0.8 % (0.0-5.0) 05/04/19 05:35 CK-MB (CK-2) 2.9 ng/mL (0.5-3.6) 05/04/19 05:35 Troponin I 0.23 ng/ml (0.00-0.05) H 05/04/19 05:35 Total Protein 6.7 g/dl (6.4-8.2) 05/03/19 05:40 Albumin 3.2 g/dl (3.4-5.0) L 05/03/19 05:40 Urine Color Yellow 05/02/19 18:55 Urine Appearance Clear 05/02/19 18:55 Urine pH 8.0 (5.0-8.0) D 05/02/19 18:55 Ur Specific [place] 1.011 (1.010-1.035) 05/02/19 18:55 Urine Protein 2+ (NEGATIVE) H 05/02/19 18:55 Urine Glucose (UA) 1+ (NEGATIVE) H 05/02/19 18:55 Urine Ketones Negative (NEGATIVE) 05/02/19 18:55 Urine Blood 1+ (NEGATIVE) H 05/02/19 18:55 Urine Nitrite Negative (NEGATIVE) 05/02/19 18:55 Urine Bilirubin Negative (NEGATIVE) 05/02/19 18:55 Urine Urobilinogen 0.2 mg/dL (0.2-1.0) 05/02/19 18:55 Ur Leukocyte Esterase Negative (NEGATIVE) 05/02/19 18:55 Urine WBC (Auto) 3 /hpf (0-5) 05/02/19 18:55 Urine RBC (Auto) 20 /hpf (0-4) 05/02/19 18:55 Urine Casts (Auto) 66 /lpf (0-8) 05/02/19 18:55 U Pathogenic Cast Auto /lpf (NEGATIVE) 05/02/19 18:55 U Epithel Cells (Auto) 9.3 /HPF (0-5/HPF) 05/02/19 18:55 Urine Bacteria (Auto) 0.7 /hpf (NEGATIVE) 05/02/19 18:55 Current Medications Chlorhexidine Gluconate (Peridex -) 15 ml MM BID [facility] Last Admin: 05/04/19 09:02 Dose: 15 ml Heparin Sodium (Porcine) (Heparin -) 5,000 unit SQ TID [facility] Last Admin: 05/04/19 14:43 Dose: 5,000 unit Propofol (Diprivan -) 1,000,000 mcg in 100 mls @ 2.517 mls/hr IVPB TITR [facility]; Protocol Last Admin: 05/03/19 21:28 Dose: 23.83 mcg/kg/min, 12 mls/hr Famotidine/Sodium Chloride (Pepcid 20 Mg Premixed Ivpb -) 20 mg in 50 mls @ 100 mls/hr IVPB BID [facility] Last Admin: 05/04/19 09:02 Dose: 100 mls/hr Piperacillin Sod/Tazobactam (Sod 4.5 gm/ Dextrose) 100 mls @ 200 mls/hr IVPB Q8H-IV [facility]; Protocol Labetalol HCl (Normodyne Injection -) 20 mg IVPUSH Q4H PRN PRN Reason: SBP >180 Levetiracetam (Keppra Injection -) 1,000 mg IVPB BID [facility] Last Admin: 05/04/19 09:05 Dose: 1,000 mg Mupirocin (Bactroban Ointment (For Decolonization) -) 1 applic NS BID [facility] Stop: 05/08/19 13:59 Last Admin: 05/04/19 09:06 Dose: 1 applic ASSESSMENT/PLAN: 53 yo F w/ PMH metastatic triple negative breast cancer (s/p chemo and XRT w/ mets to brain s/p craniotomy in 2018 and spinal cord )who had a witnessed tonic- clonic seizure and PEA arrest. ROSC was achieved ~ 5 min. EKG showed STEMI. Pt admitted to ICU for TTM. Neuro: anoxic brain injury -c/w sedation w/ propofol -c/w keppra 1000 BID Cardio: s/p PEA arrest , ACS -x2 epi, rosc ~ 5 min -EKG shows STEMI 1, aVL,V5, V6 -trop: 1.16-->0.23 -cardio recs (Dr. Shields) appreciated -pt was hypotensive, responsive to fluids ( x 1 L) -hold antihypertensives - family deferred TLC insertion Pulm: -pt intubated - GI: -c/w Famotidine 20 Heme/ Onc: metastatic triple negative breast ca w/ mets -palliative care consult -pt was on home hospice, will discuss goals of care F/E/N -monitor lytes, replete as needed DVT ppx -Hep SQ Dispo: continue ICU monitoring. Visit type - Emergency Visit Emergency Visit: No - New Patient This patient is new to me today: Yes Date on this admission: 05/04/19 - Critical Care Critical Care patient: Yes Total Critical Care Time (in minutes): 37 Critical Care Statement: The care of this patient involved high complexity decision making to prevent further life threatening deterioration of the patient 's condition and/or to evaluate & treat vital organ system(s) failure or risk of failure. - Discharge Referral Referred to [facility] No ATTENDING PHYSICIAN STATEMENT I saw and evaluated the patient. I reviewed the resident's note and discussed the case with the resident. I agree with the resident's findings and plan as documented. SUBJECTIVE: OBJECTIVE: ASSESSMENT AND PLAN:
[2019-05-04 15:02] VITALS: BMI 27.4
--- NOTE | 2019-05-04 18:49 | PN ---
Progress Note, Physician Chief Complaint: Patient on respirator being comatose. History of Present Illness: known case of metastatic breast CA with brain mets. admitted after cardiac arrest. - Current Medication List Current Medications: Active Medications Chlorhexidine Gluconate (Peridex -) 15 ml MM BID [facility] Last Admin: 05/04/19 09:02 Dose: 15 ml Heparin Sodium (Porcine) (Heparin -) 5,000 unit SQ TID [facility] Last Admin: 05/04/19 14:43 Dose: 5,000 unit Propofol (Diprivan -) 1,000,000 mcg in 100 mls @ 2.517 mls/hr IVPB TITR [facility]; Protocol Last Admin: 05/03/19 21:28 Dose: 23.83 mcg/kg/min, 12 mls/hr Famotidine/Sodium Chloride (Pepcid 20 Mg Premixed Ivpb -) 20 mg in 50 mls @ 100 mls/hr IVPB BID [facility] Last Admin: 05/04/19 09:02 Dose: 100 mls/hr Piperacillin Sod/Tazobactam (Sod 4.5 gm/ Dextrose) 100 mls @ 200 mls/hr IVPB Q8H-IV [facility]; Protocol Labetalol HCl (Normodyne Injection -) 20 mg IVPUSH Q4H PRN PRN Reason: SBP >180 Levetiracetam (Keppra Injection -) 1,000 mg IVPB BID [facility] Last Admin: 05/04/19 09:05 Dose: 1,000 mg Mupirocin (Bactroban Ointment (For Decolonization) -) 1 applic NS BID [facility] Stop: 05/08/19 13:59 Last Admin: 05/04/19 09:06 Dose: 1 applic - Objective Vital Signs: Vital Signs Temperature 98.6 F 05/04/19 14:00 Pulse Rate 114 H 05/04/19 18:00 Respiratory Rate 24 H 05/04/19 18:00 Blood Pressure 88/65 L 05/04/19 18:00 O2 Sat by Pulse Oximetry (%) 95 05/04/19 11:53 Constitutional: Yes: Mild Distress, Other (comatose) HENT: Yes: Other (on respirator) Neck: Yes: Supple Cardiovascular: Yes: Tachycardia Respiratory: Yes: Mechanically Ventilated Gastrointestinal: Yes: Soft ...Rectal Exam: Yes: Deferred Genitourinary: Yes: [place] Present Extremities: Yes: WNL Edema: No Peripheral Pulses WNL: Yes Neurological: Yes: Unresponsive Psychiatric: Yes: Other (sedated) Labs: CBC, BMP 05/04/19 05:35 05/04/19 05:35 INR, PTT INR 1.11 (0.83-1.09) H 05/03/19 05:40 - ....Imaging X-ray: Image Reviewed EKG: Image Reviewed Assessment/Plan continue same treatment will talk to family about DNR.
[2019-05-04] MEDS: PROPOFOL 1,000,000 MCG/100 ML VIAL IVPB SCH (21:52)
[2019-05-05] MEDS: HEPARIN NA (PORCINE) 5,000 UNITS/ML 1ML VIAL SQ SCH ×2 (05:37→14:37)
[2019-05-05 06:37] LABS: BASO % 0.4 % (0-2.0); EOS % 1.3 % (0-4.5); HEMATOCRIT 35.3 % (32.4-45.2); HEMOGLOBIN 12.1 GM/dL (10.7-15.3); LYMPH % 3.1 % (8-40); MCH 33.2 pg (25.7-33.7); MCHC 34.2 g/dl (32.0-36.0); MEAN PLT VOLUME 7.8 fl (7.5-11.1); MONO % 4.7 % (3.8-10.2); NEUT % 90.5 % (42.8-82.8); PLATELET COUNT 284 K/MM3 (134-434); RBC 3.64 M/mm3 (3.60-5.2); RDW 13.7 % (11.6-15.6); WHITE BLOOD COUNT 14.9 K/mm3 (4.0-10.0)
[2019-05-05 06:54] LABS: ALBUMIN 2.5 g/dl (3.4-5.0); BILIRUBIN,TOTAL 0.7 mg/dL (0.2-1); BLOOD UREA NITROGEN 19.1 mg/dL (7-18); CALCIUM 8.7 mg/dL (8.5-10.1); CREATININE 0.7 mg/dL (0.55-1.3); MAGNESIUM 1.9 mg/dL (1.8-2.4); POTASSIUM 3.3 mmol/L (3.5-5.1); TOT PROT 5.7 g/dl (6.4-8.2)
[2019-05-05 07:06] LABS: ARTERIAL BLD GAS O2 SATURATION 97.9 % (95-98); ARTERIAL BLOOD GAS BASE EXCESS 0.8 meq/l (-2-2); ARTERIAL BLOOD GAS PCO2 31.6 mmHg (35-45); ARTERIAL BLOOD GAS PO2 96.7 mmHg (80-100); ARTERIAL BLOOD GAS pH 7.48 (7.35-7.45)
[2019-05-05 07:10] LABS: ALLENS TEST POSITIVE
--- NOTE | 2019-05-05 08:58 | PN ---
Physical Exam: SUBJECTIVE: Patient seen and examined at bedside. pt is intubated and sedated. OBJECTIVE: Vital Signs Period Temp Pulse Resp BP Sys/Gilman Pulse Ox Last 24 Hr 98.6 F-100.1 F 96-125 16-29 65-125/52-80 95-96 GENERAL: The patient is awake, alert, and fully oriented, in no acute distress. EYES: PERRL LUNGS: Vent sounds equal b/l HEART: Regular rate and rhythm, S1, S2 ABDOMEN: Soft, nontender, nondistended, normoactive bowel sounds, no guarding. EXTREMITIES: 2+ pulses, warm, well-perfused, no edema. SKIN: Warm, dry, normal turgor, no rashes or lesions noted Laboratory Last Values WBC 14.9 K/mm3 (4.0-10.0) H 05/05/19 06:15 RBC 3.64 M/mm3 (3.60-5.2) 05/05/19 06:15 Hgb 12.1 GM/dL (10.7-15.3) 05/05/19 06:15 Hct 35.3 % (32.4-45.2) 05/05/19 06:15 MCV 97.0 fl (80-96) H 05/05/19 06:15 MCH 33.2 pg (25.7-33.7) 05/05/19 06:15 MCHC 34.2 g/dl (32.0-36.0) 05/05/19 06:15 RDW 13.7 % (11.6-15.6) 05/05/19 06:15 Plt Count 284 K/MM3 (134-434) 05/05/19 06:15 MPV 7.8 fl (7.5-11.1) 05/05/19 06:15 Absolute Neuts (auto) 13.5 K/mm3 (1.5-8.0) H 05/05/19 06:15 Neutrophils % 90.5 % (42.8-82.8) H 05/05/19 06:15 Lymphocytes % 3.1 % (8-40) L D 05/05/19 06:15 Monocytes % 4.7 % (3.8-10.2) 05/05/19 06:15 Eosinophils % 1.3 % (0-4.5) D 05/05/19 06:15 Basophils % 0.4 % (0-2.0) 05/05/19 06:15 Nucleated RBC % 0 % (0-0) 05/05/19 06:15 PT with INR 13.10 SEC (9.7-13.0) H 05/03/19 05:40 INR 1.11 (0.83-1.09) H 05/03/19 05:40 PTT (Actin FS) 31.5 SECONDS (25.2-36.5) 05/03/19 05:40 Anticoagulation Therapy No Result Required. 05/05/19 06:45 Puncture Site Left radial 05/05/19 06:45 Patient Temperature 96.8 05/03/19 06:00 ABG pH 7.48 (7.35-7.45) H 05/05/19 06:45 ABG pCO2 at Pt Temp 31.6 mmHg (35-45) L 05/05/19 06:45 ABG pO2 at Pt Temp 96.7 mmHg (80-100) 05/05/19 06:45 ABG HCO3 23.2 mmol/L (22-27) 05/05/19 06:45 ABG O2 Sat (Measured) 97.9 % (95-98) 05/05/19 06:45 ABG O2 Content 17.1 % vol 05/05/19 06:45 ABG Base Excess 0.8 meq/l (-2-2) 05/05/19 06:45 [place] Test Positive 05/05/19 06:45 O2 Delivery Device No Result Required. 05/05/19 06:45 Oxygen Flow Rate Yes 05/05/19 06:45 Vent Mode No Result Required. 05/05/19 06:45 Vent Rate No Result Required. 05/05/19 06:45 Mechanical Rate No Result Required. 05/05/19 06:45 PEEP 5.0 cmH2O 05/04/19 06:30 Pressure Support Vent No Result Required. 05/05/19 06:45 Sodium 145 mmol/L (136-145) 05/05/19 06:15 Potassium 3.3 mmol/L (3.5-5.1) L 05/05/19 06:15 Chloride 109 mmol/L (98-107) H 05/05/19 06:15 Carbon Dioxide 24 mmol/L (21-32) 05/05/19 06:15 Anion Gap 12 MMOL/L (8-16) 05/05/19 06:15 BUN 19.1 mg/dL (7-18) H 05/05/19 06:15 Creatinine 0.7 mg/dL (0.55-1.3) 05/05/19 06:15 Est GFR (CKD-EPI)AfAm 114.65 05/05/19 06:15 Est GFR (CKD-EPI)NonAf 98.92 05/05/19 06:15 POC Glucometer 124 UNITS (80-120) 05/03/19 21:01 Random Glucose 99 mg/dL (74-106) 05/05/19 06:15 Lactic Acid 9.0 mmol/L (0.4-2.0) H* 05/02/19 18:48 Calcium 8.7 mg/dL (8.5-10.1) 05/05/19 06:15 Phosphorus 3.0 mg/dL (2.5-4.9) 05/05/19 06:15 Magnesium 1.9 mg/dL (1.8-2.4) 05/05/19 06:15 Total Bilirubin 0.7 mg/dL (0.2-1) 05/05/19 06:15 Direct Bilirubin 0.4 mg/dL (0.0-0.2) H 05/03/19 05:40 AST 32 U/L (15-37) 05/05/19 06:15 ALT 37 U/L (13-61) 05/05/19 06:15 Alkaline Phosphatase 85 U/L (45-117) 05/05/19 06:15 Creatine Kinase 346 U/L (26-192) H 05/04/19 05:35 Creatine Kinase Index 0.8 % (0.0-5.0) 05/04/19 05:35 CK-MB (CK-2) 2.9 ng/mL (0.5-3.6) 05/04/19 05:35 Troponin I 0.23 ng/ml (0.00-0.05) H 05/04/19 05:35 Total Protein 5.7 g/dl (6.4-8.2) L 05/05/19 06:15 Albumin 2.5 g/dl (3.4-5.0) L 05/05/19 06:15 Urine Color Yellow 05/02/19 18:55 Urine Appearance Clear 05/02/19 18:55 Urine pH 8.0 (5.0-8.0) D 05/02/19 18:55 Ur Specific [place] 1.011 (1.010-1.035) 05/02/19 18:55 Urine Protein 2+ (NEGATIVE) H 05/02/19 18:55 Urine Glucose (UA) 1+ (NEGATIVE) H 05/02/19 18:55 Urine Ketones Negative (NEGATIVE) 05/02/19 18:55 Urine Blood 1+ (NEGATIVE) H 05/02/19 18:55 Urine Nitrite Negative (NEGATIVE) 05/02/19 18:55 Urine Bilirubin Negative (NEGATIVE) 05/02/19 18:55 Urine Urobilinogen 0.2 mg/dL (0.2-1.0) 05/02/19 18:55 Ur Leukocyte Esterase Negative (NEGATIVE) 05/02/19 18:55 Urine WBC (Auto) 3 /hpf (0-5) 05/02/19 18:55 Urine RBC (Auto) 20 /hpf (0-4) 05/02/19 18:55 Urine Casts (Auto) 66 /lpf (0-8) 05/02/19 18:55 U Pathogenic Cast Auto /lpf (NEGATIVE) 05/02/19 18:55 U Epithel Cells (Auto) 9.3 /HPF (0-5/HPF) 05/02/19 18:55 Urine Bacteria (Auto) 0.7 /hpf (NEGATIVE) 05/02/19 18:55 Current Medications Chlorhexidine Gluconate (Peridex -) 15 ml MM BID [facility] Last Admin: 05/04/19 21:51 Dose: 15 ml Heparin Sodium (Porcine) (Heparin -) 5,000 unit SQ TID [facility] Last Admin: 05/05/19 05:37 Dose: 5,000 unit Propofol (Diprivan -) 1,000,000 mcg in 100 mls @ 2.517 mls/hr IVPB TITR [facility]; Protocol Last Titration: 05/05/19 07:20 Dose: 0 mcg/kg/min, 0 mls/hr Famotidine/Sodium Chloride (Pepcid 20 Mg Premixed Ivpb -) 20 mg in 50 mls @ 100 mls/hr IVPB BID [facility] Last Admin: 05/04/19 21:51 Dose: 100 mls/hr Piperacillin Sod/Tazobactam (Sod 4.5 gm/ Dextrose) 100 mls @ 200 mls/hr IVPB Q8H-IV [facility]; Protocol Labetalol HCl (Normodyne Injection -) 20 mg IVPUSH Q4H PRN PRN Reason: SBP >180 Levetiracetam (Keppra Injection -) 1,000 mg IVPB BID [facility] Last Admin: 05/04/19 21:51 Dose: 1,000 mg Mupirocin (Bactroban Ointment (For Decolonization) -) 1 applic NS BID [facility] Stop: 05/08/19 13:59 Last Admin: 05/04/19 21:52 Dose: 1 applic ASSESSMENT/PLAN: 53 yo F w/ PMH metastatic triple negative breast cancer (s/p chemo and XRT w/ mets to brain s/p craniotomy in 2018 and spinal cord )who had a witnessed tonic- clonic seizure and PEA arrest. ROSC was achieved ~ 5 min. EKG showed STEMI. Pt admitted to ICU s/p cardiac arrest and TTM. Neuro: anoxic brain injury -c/w sedation w/ propofol. -c/w keppra 1000 BID -morphine for pain control -poorly responsive to noxious stimuli Cardio: s/p PEA arrest , ACS -x2 epi, rosc ~ 5 min -EKG shows STEMI 1, aVL,V5, V6 -trop: 1.16-->0.23 -cardio recs (Dr. Shields) appreciated -pt was hypotensive, responsive to fluids ( x 1 L) -hold antihypertensives - family deferred TLC insertion Pulm: -pt intubated GI: -c/w Famotidine 20 Heme/ Onc: metastatic triple negative breast ca w/ mets -palliative care consult -pt was on home hospice, will discuss goals of care F/E/N -monitor lytes, replete as needed DVT ppx -Hep SQ Dispo: continue ICU monitoring. Pt is DNR Visit type - Emergency Visit Emergency Visit: No - New Patient This patient is new to me today: No - Critical Care Critical Care patient: Yes Total Critical Care Time (in minutes): 37 Critical Care Statement: The care of this patient involved high complexity decision making to prevent further life threatening deterioration of the patient 's condition and/or to evaluate & treat vital organ system(s) failure or risk of failure. ATTENDING PHYSICIAN STATEMENT I saw and evaluated the patient. I reviewed the resident's note and discussed the case with the resident. I agree with the resident's findings and plan as documented. SUBJECTIVE: OBJECTIVE: ASSESSMENT AND PLAN:
--- NOTE | 2019-05-05 09:34 | PN ---
Progress Note, Physician History of Present Illness: On respirator - Current Medication List Current Medications: Active Medications Chlorhexidine Gluconate (Peridex -) 15 ml MM BID [facility] Last Admin: 05/04/19 21:51 Dose: 15 ml Heparin Sodium (Porcine) (Heparin -) 5,000 unit SQ TID [facility] Last Admin: 05/05/19 05:37 Dose: 5,000 unit Propofol (Diprivan -) 1,000,000 mcg in 100 mls @ 2.517 mls/hr IVPB TITR [facility]; Protocol Last Titration: 05/05/19 07:20 Dose: 0 mcg/kg/min, 0 mls/hr Famotidine/Sodium Chloride (Pepcid 20 Mg Premixed Ivpb -) 20 mg in 50 mls @ 100 mls/hr IVPB BID [facility] Last Admin: 05/04/19 21:51 Dose: 100 mls/hr Piperacillin Sod/Tazobactam (Sod 4.5 gm/ Dextrose) 100 mls @ 200 mls/hr IVPB Q8H-IV [facility]; Protocol Labetalol HCl (Normodyne Injection -) 20 mg IVPUSH Q4H PRN PRN Reason: SBP >180 Levetiracetam (Keppra Injection -) 1,000 mg IVPB BID [facility] Last Admin: 05/04/19 21:51 Dose: 1,000 mg Mupirocin (Bactroban Ointment (For Decolonization) -) 1 applic NS BID [facility] Stop: 05/08/19 13:59 Last Admin: 05/04/19 21:52 Dose: 1 applic - Objective Vital Signs: Vital Signs Temperature 98.8 F 05/05/19 04:00 Pulse Rate 119 H 05/05/19 06:00 Respiratory Rate 05/05/19 08:10 Blood Pressure 100/80 05/05/19 06:00 O2 Sat by Pulse Oximetry (%) 95 05/04/19 20:04 Constitutional: Yes: Other (comatosed) Eyes: Yes: WNL HENT: Yes: WNL Neck: Yes: Supple Cardiovascular: Yes: Tachycardia Respiratory: Yes: Mechanically Ventilated Gastrointestinal: Yes: WNL ...Rectal Exam: Yes: Deferred Genitourinary: Yes: [place] Present Extremities: Yes: WNL Edema: No Neurological: Yes: Unresponsive Labs: CBC, BMP 05/05/19 06:15 05/05/19 06:15 INR, PTT INR 1.11 (0.83-1.09) H 05/03/19 05:40 Assessment/Plan Off propefin Start NG feeding
[2019-05-05] MEDS: MUPIROCIN 2% TOPICAL OINTMENT FOR DECOLONIZATION NS SCH (10:45)
[2019-05-05] MEDS: CHLORHEXIDINE GLUCONATE 0.12% 15ML CUP MM SCH (10:47)
[2019-05-05] MEDS: FAMOTIDINE 20 MG/50 ML IVPB 20 MG/50 ML MG IVPB SCH (10:51)
[2019-05-05 10:56] VITALS: TEMP 99
[2019-05-05] MEDS: levETIRAcetam 500 MG/5 ML INJECTION VIAL IVPB SCH ×2 (11:25→22:37)
[2019-05-05] MEDS ORDERED: MORPHINE SULFATE 2 MG/ML VIAL IVPUSH PRN (12:08)
--- NOTE | 2019-05-05 12:47 | PN ---
Teaching Attending Note Name of Resident: Essie Quinn ATTENDING PHYSICIAN STATEMENT I saw and evaluated the patient. I reviewed the resident's note and discussed the case with the resident. I agree with the resident's findings and plan as documented. SUBJECTIVE: Patient seen and examined in the ICU. Intubated. Poorly responsive to noxious stimuli. Slight grimacing to noxious stimuli. AC Mode of vent. Off pressors. Intake & Output 05/02/19 05/03/19 05/04/19 05/05/19 23:59 23:59 23:59 23:59 Intake Total 1657 1868 42 Output Total 650 2300 1900 250 Balance -650 -643 -32 -208 Weight 155 lb 9.6 oz 155 lb 14.4 oz 155 lb 155 lb 6 oz Last Vital Signs Temp Pulse Resp BP Pulse Ox 99.0 F 112 H 23 H 93/77 95 05/05/19 08:00 05/05/19 10:00 05/05/19 12:28 05/05/19 10:00 05/04/19 20:04 Active Medications Chlorhexidine Gluconate (Peridex -) 15 ml MM BID MIGDALIA Last Admin: 05/05/19 10:47 Dose: 15 ml Heparin Sodium (Porcine) (Heparin -) 5,000 unit SQ TID MIGDALIA Last Admin: 05/05/19 05:37 Dose: 5,000 unit Propofol (Diprivan -) 1,000,000 mcg in 100 mls @ 2.517 mls/hr IVPB TITR MIGDALIA; Protocol Last Titration: 05/05/19 07:20 Dose: 0 mcg/kg/min, 0 mls/hr Famotidine/Sodium Chloride (Pepcid 20 Mg Premixed Ivpb -) 20 mg in 50 mls @ 100 mls/hr IVPB BID MIGDALIA Last Admin: 05/05/19 10:51 Dose: 100 mls/hr Piperacillin Sod/Tazobactam (Sod 4.5 gm/ Dextrose) 100 mls @ 200 mls/hr IVPB Q8H-IV MIGDALIA; Protocol Labetalol HCl (Normodyne Injection -) 20 mg IVPUSH Q4H PRN PRN Reason: SBP >180 Levetiracetam (Keppra Injection -) 1,000 mg IVPB BID [facility] Last Admin: 05/05/19 11:25 Dose: 1,000 mg Morphine Sulfate (Morphine Sulfate) 2 mg IVPUSH Q4H PRN PRN Reason: PAIN LEVEL 6-10 Mupirocin (Bactroban Ointment (For Decolonization) -) 1 applic NS BID MIGDALIA Stop: 05/08/19 13:59 Last Admin: 05/05/19 10:45 Dose: 1 applic Constitutional: Yes: Intubated, minimally responsive to noxious stimuli Respiratory: Yes: Intubated, Mechanically Ventilated. No: Rales, Rhonchi, Wheezes Cardiovascular: Yes: Tachycardia. No: Regular Rate and Rhythm, Bradycardia, Pulse Irregular, Gallop, Rub, Varicosities JVD: No Heart Sounds: Yes: S1, S2. Murmur: No: Systolic Murmur, Diastolic Murmur Edema: No Neurological: Minimally responsive Psychiatric: Minimally responsive Laboratory Results - last 24 hr 05/05/19 05/05/19 05/05/19 06:15 06:15 06:45 WBC 14.9 H RBC 3.64 Hgb 12.1 Hct 35.3 MCV 97.0 H MCH 33.2 MCHC 34.2 RDW 13.7 Plt Count 284 MPV 7.8 Absolute Neuts (auto) 13.5 H Neutrophils % 90.5 H Lymphocytes % 3.1 L D Monocytes % 4.7 Eosinophils % 1.3 D Basophils % 0.4 Nucleated RBC % 0 Anticoagulation Therapy No Result Required. Puncture Site Left radial ABG pH 7.48 H ABG pCO2 at Pt Temp 31.6 L ABG pO2 at Pt Temp 96.7 ABG HCO3 23.2 ABG O2 Sat (Measured) 97.9 ABG O2 Content 17.1 ABG Base Excess 0.8 [place] Test Positive O2 Delivery Device No Result Required. Oxygen Flow Rate Yes Vent Mode No Result Required. Vent Rate No Result Required. Mechanical Rate No Result Required. Pressure Support Vent No Result Required. Sodium 145 Potassium 3.3 L Chloride 109 H Carbon Dioxide 24 Anion Gap 12 BUN 19.1 H Creatinine 0.7 Est GFR (CKD-EPI)AfAm 114.65 Est GFR (CKD-EPI)NonAf 98.92 Random Glucose 99 Calcium 8.7 Phosphorus 3.0 Magnesium 1.9 Total Bilirubin 0.7 AST 32 ALT 37 Alkaline Phosphatase 85 Total Protein 5.7 L Albumin 2.5 L Assessment/Plan Acute CP arrest Anoxic Brain Injury Metastatic Breast cancer (mets to brain and spinal cord) S/P Chemo and RT S/P craniotomy ACS (?) Demand Ischemia AC Mode of vent Family has deferred TLC insertion Follow Neuro exam S/P Hypothermia Monitor off sedation to further assess Neuro exam Palliative care consult noted Supportive care Requires ICU monitoring Dr Gray Critical care time spent in reviewing chart, evaluating patient and formulating plan - 36 minutes.
[2019-05-05] MEDS ORDERED: POTASSIUM CHLORIDE ORAL LIQUID 20 MEQ/15 ML PO ONE (12:51)
[2019-05-05] MEDS ORDERED: morphine SULFATE 4 MG/ML VIAL IVPUSH ONE (17:33)
[2019-05-05] MEDS ORDERED: ACETAMINOPHEN 325 MG SUPP.RECT PR PRN (17:37)
--- NOTE | 2019-05-05 17:47 | PN ---
Progress Note (short form) - Note Progress Note: Family meeting with palliative today. Family requesting compassionate extubation. No further labs, tests, imaging. No further feedings. Paperwork filled out, update given to Dr. Apodaca and Dr. Gray. Will start on morphine IVP during extubation, morphine gtt, ativan IVP PRN, keppra BID, tylenol PRN. Nhi Castillo MD PGY-3 ICU team
[2019-05-05] MEDS: LORazepam 2 MG/ML SDV VIAL IVPUSH PRN (18:26)
[2019-05-05] MEDS: MORPHINE SULFATE/0.9% NACL/PF 100 MG/100 ML BAG IVPB SCH (18:26)
[2019-05-05] MEDS: PIPERACILLIN/TAZOB 4.5 GM 4.5 GM in DEXTROSE 5%-WATER 100 ML IVPB SCH (18:29)
[2019-05-06] MEDS: levETIRAcetam 500 MG/5 ML INJECTION VIAL IVPB SCH ×2 (08:59→22:49)
--- NOTE | 2019-05-06 10:56 | PN ---
Teaching Attending Note Name of Resident: Essie Quinn ATTENDING PHYSICIAN STATEMENT I saw and evaluated the patient. I reviewed the resident's note and discussed the case with the resident. I agree with the resident's findings and plan as documented. SUBJECTIVE: Pt seen and examined in the ICU. Compassionately extubated on morphine gtt. Labored breaths this AM. OBJECTIVE: Vital Signs Period Temp Pulse Resp BP Sys/Gilman Pulse Ox Last 24 Hr 113-164 16-26 117-142/72-128 97 Intake & Output 05/03/19 05/04/19 05/05/19 05/06/19 23:59 23:59 23:59 23:59 Intake Total 1657 1868 48 129 Output Total 2300 1900 450 350 Balance -643 -32 -402 -221 Weight 70.715 kg 70.307 kg 70.477 kg 70.477 kg Gen: tachypneic, unresponsive Heart: tachycardic Lung: bilateral rhonchi Abd: soft, nontender Ext: no edema CBC, BMP 05/05/19 06:15 05/05/19 06:15 Active Medications Acetaminophen (Tylenol Suppository -) 325 mg [place] Q6H PRN PRN Reason: PAIN OR FEVER Morphine Sulfate (Morphine 100mg/100ml-0.9% Nacl) 100 mg in 100 mls @ 1 mls/hr IVPB TITR MIGDALIA; Protocol Last Infusion: 05/06/19 10:35 Dose: 8 mg/hr, 8 mls/hr Labetalol HCl (Normodyne Injection -) 20 mg IVPUSH Q4H PRN PRN Reason: SBP >180 Levetiracetam (Keppra Injection -) 1,000 mg IVPB BID MIGDALIA Last Admin: 05/06/19 08:59 Dose: 1,000 mg Lorazepam (Ativan Injection -) 1 mg IVPUSH Q3H PRN PRN Reason: ANXIETY Last Admin: 05/05/19 18:26 Dose: 1 mg ASSESSMENT AND PLAN: s/p Cardiopulmonary Arrest Anoxic Brain Injury Metastatic Breast Cancer to Brain Seizure +Troponins likely Demand Ischemia Lactic Acidosis - titrate morphine gtt to RR <20 - ativan as needed - continue supportive, comfort measures - can monitor on floor
[2019-05-06] MEDS: LORazepam 2 MG/ML SDV VIAL IVPUSH PRN (12:02)
[2019-05-06] MEDS: MORPHINE SULFATE/0.9% NACL/PF 100 MG/100 ML BAG IVPB SCH ×2 (12:46→19:02)
--- NOTE | 2019-05-06 13:48 | PN ---
Progress Note, Physician Chief Complaint: S/P et extubation - Current Medication List Current Medications: Active Medications Acetaminophen (Tylenol Suppository -) 325 mg [place] Q6H PRN PRN Reason: PAIN OR FEVER Morphine Sulfate (Morphine 100mg/100ml-0.9% Nacl) 100 mg in 100 mls @ 1 mls/hr IVPB TITR MIGDALIA; Protocol Last Admin: 05/06/19 12:46 Dose: 8 mg/hr, 8 mls/hr Labetalol HCl (Normodyne Injection -) 20 mg IVPUSH Q4H PRN PRN Reason: SBP >180 Levetiracetam (Keppra Injection -) 1,000 mg IVPB BID MIGDALIA Last Admin: 05/06/19 08:59 Dose: 1,000 mg Lorazepam (Ativan Injection -) 1 mg IVPUSH Q3H PRN PRN Reason: ANXIETY Last Admin: 05/06/19 12:02 Dose: 1 mg - Objective Vital Signs: Vital Signs Temperature 99.0 F 05/05/19 08:00 Pulse Rate 164 H 05/06/19 07:12 Respiratory Rate 24 H 05/06/19 07:12 Blood Pressure 117/72 05/06/19 07:12 O2 Sat by Pulse Oximetry (%) 97 05/05/19 13:36 Constitutional: Yes: Mild Distress HENT: Yes: Drooling Neck: Yes: WNL Cardiovascular: Yes: WNL Respiratory: Yes: Poor Air Entry, Stridor Gastrointestinal: Yes: Normal Bowel Sounds ...Rectal Exam: Yes: Deferred Genitourinary: Yes: [place] Present Edema: No Neurological: Yes: Other (comatose) Labs: CBC, BMP 05/05/19 06:15 05/05/19 06:15 INR, PTT INR 1.11 (0.83-1.09) H 05/03/19 05:40
--- NOTE | 2019-05-06 14:32 | PN ---
Physical Exam: SUBJECTIVE: Patient seen and examined at bedside. pt is labored breathing. pt is now extubated. family is at bedside. OBJECTIVE: Vital Signs Period Temp Pulse Resp BP Sys/Gilman Pulse Ox Last 24 Hr 113-164 16-26 99-125/67-73 GENERAL: The patient is awake, alert, and fully oriented, in no acute distress. LUNGS: Breath sounds equal, labored breathing HEART: Regular rate and rhythm, S1, S2 ABDOMEN: Soft, nontender, nondistended, normoactive bowel sound EXTREMITIES: 2+ pulses, warm, well-perfused, no edema. SKIN: Warm, dry, normal turgor, no rashes or lesions noted Current Medications Acetaminophen (Tylenol Suppository -) 325 mg [place] Q6H PRN PRN Reason: PAIN OR FEVER Morphine Sulfate (Morphine 100mg/100ml-0.9% Nacl) 100 mg in 100 mls @ 1 mls/hr IVPB TITR MIGDALIA; Protocol Last Infusion: 05/06/19 14:01 Dose: 10 mg/hr, 10 mls/hr Labetalol HCl (Normodyne Injection -) 20 mg IVPUSH Q4H PRN PRN Reason: SBP >180 Levetiracetam (Keppra Injection -) 1,000 mg IVPB BID MIGDALIA Last Admin: 05/06/19 08:59 Dose: 1,000 mg Lorazepam (Ativan Injection -) 1 mg IVPUSH Q3H PRN PRN Reason: ANXIETY Last Admin: 05/06/19 12:02 Dose: 1 mg ASSESSMENT/PLAN: 53 yo F w/ PMH metastatic triple negative breast cancer (s/p chemo and XRT w/ mets to brain s/p craniotomy in 2018 and spinal cord )who had a witnessed tonic- clonic seizure and PEA arrest. ROSC was achieved ~ 5 min. EKG showed STEMI. Pt admitted to ICU s/p cardiac arrest and TTM. Neuro: anoxic brain injury -c/w keppra 1000 BID -morphine ggt for pain control -poorly responsive to noxious stimuli -titrate morphine gtt to RR <20 - ativan as needed Cardio: s/p PEA arrest , ACS -x2 epi, rosc ~ 5 min -EKG shows STEMI 1, aVL,V5, V6 -trop: 1.16-->0.23 Pulm: -pt s/p intubated and extubated Heme/ Onc: metastatic triple negative breast ca w/ mets - pt is comfort care F/E/N - no further labs and testing Dispo: pt is on comfort measures. yesterday , 05/05 had family discussion. family is aware and understands. Visit type - Emergency Visit Emergency Visit: No - New Patient This patient is new to me today: No - Critical Care Critical Care patient: Yes Total Critical Care Time (in minutes): 36 Critical Care Statement: The care of this patient involved high complexity decision making to prevent further life threatening deterioration of the patient 's condition and/or to evaluate & treat vital organ system(s) failure or risk of failure. - Discharge Referral Referred to [facility] No ATTENDING PHYSICIAN STATEMENT I saw and evaluated the patient. I reviewed the resident's note and discussed the case with the resident. I agree with the resident's findings and plan as documented. SUBJECTIVE: OBJECTIVE: ASSESSMENT AND PLAN:
[2019-05-06 17:07] VITALS: PULSE 143
[2019-05-06 18:36] VITALS: BP 100/66
--- NOTE | 2019-05-06 20:04 | PN ---
Progress Note (short form) - Note Progress Note: Went to patient's bedside with cardiac monitoring showing no activity. Patient is on comfort care 2/2 metastatic breast cancer. On exam the patient did not respond to verbal or physical stimuli. Absent heart and breath sounds. Absent peripheral pulses. Pupils are fixed and dilated. Patient pronounced at 19: 47. Dr. Carmona notified. Family at bedside notified. Autopsy declined. patent examiner declined examination number . PCP Paulie notified.
== END 2019-05-06 22:48 | disposition expired | DRG 382 ==
LOC: SUPCPDRO 18:00 → JER 18:00 → JERBED 21:20 → JICU 22:15
PROVIDERS: ADMIT Internal Medicine; ATTEND Internal Medicine
PROC: 5A1945Z Respiratory Ventilation, 24-96 Consecutive Hours (ICD-10-PCS; principal; 2019-05-02)
PROC: 0BH17EZ Insertion of Endotracheal Airway into Trachea, Via Natural or Artificial Opening (ICD-10-PCS; 2019-05-02)
DX: C50.912 Malignant neoplasm of unspecified site of left female breast (principal); E87.6 Hypokalemia; J98.11 Atelectasis; N17.9 Acute kidney failure, unspecified; C79.51 Secondary malignant neoplasm of bone; C79.31 Secondary malignant neoplasm of brain; I21.3 ST elevation (STEMI) myocardial infarction of unspecified site; G93.1 Anoxic brain damage, not elsewhere classified; J96.00 Acute respiratory failure, unspecified whether with hypoxia or hypercapnia; I46.9 Cardiac arrest, cause unspecified; J69.0 Pneumonitis due to inhalation of food and vomit; E87.2 Acidosis; R56.9 Unspecified convulsions; I95.9 Hypotension, unspecified; R00.0 Tachycardia, unspecified
CPT/HCPCS: 36415; 36600; 70450-TC; 71045-TC-FY; 71275-TC; 80048; 80053; 80076; 81003; 82550; 82553; 82803; 82962; 83605; 83735; 84100; 84484; 85025; 85027; 85610; 85730; 87040; 87070; 87086; 87186; 87205; 93005; 93010; 94002; 99285-25; J1644